=== PATIENT | female | born 1950 | race African-American/Black ===

== ENCOUNTER 2017-07-20 23:29 | Emergency (ER) | payer MEDICARE, MEDICAID ==
--- NOTE | 2017-07-20 23:57 | RAD ---
PORTABLE CHEST: 07/20/17 HISTORY: Cough. COMPARISON: 08/17/15 study. Heart size is enlarged. Atherosclerotic changes are seen in the aorta. The lungs are clear of infiltr ates. Slight elevation of the right hemidiaphragm is noted. Minimal atelectatic changes are seen in t he bases. IMPRESSION: Cardiomegaly with no focal infiltrate. POS: [facility]
== END 2017-07-21 01:50 | disposition home or self-care (01) ==
LOC: ERS 23:29
DX: J11.1 Influenza due to unidentified influenza virus with other respiratory manifestations (principal); E11.40 Type 2 diabetes mellitus with diabetic neuropathy, unspecified; I12.0 Hypertensive chronic kidney disease with stage 5 chronic kidney disease or end stage renal disease; E11.22 Type 2 diabetes mellitus with diabetic chronic kidney disease; N18.6 End stage renal disease; F32.9 Major depressive disorder, single episode, unspecified; Z79.82 Long term (current) use of aspirin; Z79.899 Other long term (current) drug therapy
CPT/HCPCS: 71010; 87081; 87430; 87804

== ENCOUNTER 2017-10-19 13:03 | Outpatient (CLI) | payer MEDICARE, MEDICAID | END 2017-10-19 13:04 | disposition home or self-care (01) | LOC: BICULT 13:03 | PROVIDERS: ATTEND Surgery | DX: Z01.818 Encounter for other preprocedural examination (principal); N18.6 End stage renal disease | CPT/HCPCS: 93970; G0365 ==

== ENCOUNTER 2017-11-02 06:20 | Day surgery (SDC) | payer MEDICARE, MEDICAID ==
[2017-11-01 15:01] VITALS: BMI 35.3
[2017-11-02] MEDS ORDERED: Fentanyl 100 MCG/2 ML VIAL ONE ×3 (06:34→10:38)
[2017-11-02] MEDS ORDERED: Midazolam HCl 2 mg/2 ml Vial ONE ×2 (06:35→08:09)
[2017-11-02] MEDS ORDERED: Heparin 5,000 UNITS/ML VIAL ONE (06:37)
[2017-11-02] MEDS ORDERED: Bupivacaine/Epinephrine 0.25% 30 ML VIAL ONE (06:51)
[2017-11-02] MEDS ORDERED: CEFAZOLIN/Water 2 GM/20 ML SYRINGE ONE (07:27)
[2017-11-02 07:56] LABS: Hemoglobin 11.3 g/dL (12.0-16.0); Mean Corpuscular HGB CONC 31.6 g/dL (32.0-36.0); Mean Corpuscular Hemoglobin 29.3 pg (27.0-31.0); Mean Corpuscular Volume 93.6 fL (81.0-99.0); RBC Distribution Width 13.5 % (11.5-14.5); Red Blood Cell (RBC) Count 3.82 mill/uL (4.20-5.40); White Blood Cell (WBC) Count 9.8 thou/uL (4.8-10.8)
[2017-11-02 07:57] LABS: #Basophils 0.1 thou/uL (0.0-0.2); #Eosinphils 0.3 thou/uL (0.0-0.7); #Lymphocytes 2.6 thou/uL (1.20-3.40); #Monocytes 0.8 thou/uL (0.11-0.59); #Neutrophils 6.1 thou/uL (1.40-6.50); %Basophils 0.7 % (0.0-1.0); %Eosinophils 2.8 % (0.0-10.0); %Lymphocytes 26.1 % (21.0-51.0); %Monocytes 7.8 % (0.0-10.0); %Neutrophils 62.7 % (42.0-75.0); Mean Platelet Volume 9.1 fL (7.4-10.4); Platelet Count 222 thou/uL (130-400)
[2017-11-02 08:09] LABS: Anion Gap 16 mmol/L (10-20); BUN (Urea Nitrogen) 62 mg/dL (9.8-20.1); Calc. Creatinine Clearance 15 mL/min (70-130); Calcium 9.8 mg/dL (7.8-10.44); Carbon Dioxide 23 mmol/L (23-31); Chloride 103 mmol/L (98-107); Estimated GFR-MDRD 10; Glucose 146 mg/dL (80-115); Potassium 4.3 mmol/L (3.5-5.1); Sodium 138 mmol/L (136-145)
[2017-11-02] MEDS ORDERED: Ondansetron HCl/PF 4 MG/2 ML Vial ONE ×2 (09:51→16:43)
[2017-11-02] MEDS ORDERED: Heparin 10,000 UNITS/ 10 ML VIAL ONE (11:53)
[2017-11-02] MEDS ORDERED: Morphine 4 MG/ML VIAL ONE (12:01)
[2017-11-02] MEDS ORDERED: HYDROcodone/Acetaminophen 5/325 mg Tablet ONE (12:01)
[2017-11-02] MEDS ORDERED: PROPOFOL 200 MG/20 ML VIAL ONE (16:43)
[2017-11-02] MEDS ORDERED: Dexamethasone 20 MG/5 ML VIAL ONE (16:43)
[2017-11-02] MEDS ORDERED: Lidocaine 1% PF 5 ML VIAL ONE (16:43)
--- NOTE | 2017-11-03 15:01 | OP ---
PROCEDURE: Left upper arm radiocephalic AV fistula. PREOPERATIVE DIAGNOSIS: Renal failure with thrombosed right arm fistula. POSTOPERATIVE DIAGNOSIS: Renal failure with thrombosed right arm fistula. HISTORY: Ms. Briggs is a 67-year-old woman with end-stage renal failure. Attempts were made to guanaco ce a fistula on the right arm, but the vein thrombosed. Recommendation was made to proceed with left arm fistula. PROCEDURE IN DETAIL: After informed consent was obtained and appropriate preoperative antibiotics ad ministered, the patient was taken to the operating room. She was placed in supine position and monit ored anesthesia care was administered. A preoperative block had been placed and adequacy was confirm ed. She was prepped and draped in a standard sterile fashion and the left arm carefully examined and no adequate forearm vein was identified, but she had a good antecubital vein. An incision was made between this and the palpable brachial pulse and dissection carried down to the vein, which was found to have a good caliber customer loyalty representative. This was dissected free and the distal branches ligated and divi ded and the end spatulated. The vessel was interrogated with cardiac dilators and easily accepted up to a 4-mm dilator. This went up the cephalic outflow only. No significant crossover the basilic sy stem was noted. The vein was flushed with heparinized saline and clamped with a bulldog clamp and th e radial artery identified in the base of the wound. The end of the customer loyalty representative easily reached down t o the radial artery, which was somewhat small in caliber, but soft walled and healthy. The artery wa s dissected free for a length adequate to perform a wide anastomosis and heparin was administered and allowed to circulate for 3 minutes. The radial artery was then clamped proximally and distally and an anterior arteriotomy created with 11-blade and extended with Alejo scissors. A wide end-to-side a nastomosis was created with a running 6-0 Prolene suture with excellent technical result. Prior to c ompletion of the anastomosis, the arterial inflow was released, flushing the anastomosis and flow was established first through the fistula and then through the distal artery. Hemostasis was verified a t the anastomosis and the wound irrigated and hemostasis within the wound obtained by Bovie electroca utery. The fistula had an excellent thrill in it and a good Doppler signal up to the mid upper arm. Surgicel was placed in the base of the wound. The wound was closed with a 3-0 subcutaneous and a 4- 0 subcuticular suture. Dermabond dressings were placed and the arm was dressed with an Timbo wrap. Es timated blood loss was minimal. There were no complications. There were no specimens.
== END 2017-11-02 13:15 | disposition home or self-care (01) ==
LOC: SDC 06:20
PROVIDERS: ATTEND Surgery
PROC: 031C0ZF Bypass Left Radial Artery to Lower Arm Vein, Open Approach (ICD-10-PCS; principal; 2017-11-02)
DX: I12.0 Hypertensive chronic kidney disease with stage 5 chronic kidney disease or end stage renal disease (principal); E11.22 Type 2 diabetes mellitus with diabetic chronic kidney disease; N18.6 End stage renal disease; G43.909 Migraine, unspecified, not intractable, without status migrainosus; Z79.82 Long term (current) use of aspirin; Z79.899 Other long term (current) drug therapy; Z98.890 Other specified postprocedural states; Z86.73 Personal history of transient ischemic attack (TIA), and cerebral infarction without residual deficits; Z82.49 Family history of ischemic heart disease and other diseases of the circulatory system; Z82.3 Family history of stroke
CPT/HCPCS: 80048; 85025; 96374; J1100; J1644; J2001; J2250; J2270; J2405; J2704; J3010

== ENCOUNTER 2017-12-19 13:04 | Day surgery (SDC) | payer MEDICARE, MEDICAID ==
[2017-12-15 11:49] VITALS: BMI 33.5
[~2017-12-19 13:04] MED LIST: Bupivacaine HCl 0.5%/Epinephrine 1:200,000/PF 30 ml Vial ONE
[2017-12-19] MEDS ORDERED: PROPOFOL 200 MG/20 ML VIAL ONE (13:30)
[2017-12-19] MEDS ORDERED: Midazolam HCl 2 mg/2 ml Vial ONE (14:00)
[2017-12-19] MEDS ORDERED: Fentanyl 100 MCG/2 ML VIAL ONE ×2 (14:00→14:14)
[2017-12-19 14:07] LABS: #Eosinphils 0.3 thou/uL (0.0-0.7); #Lymphocytes 3.2 thou/uL (1.20-3.40); #Monocytes 0.8 thou/uL (0.11-0.59); %Basophils 0.4 % (0.0-1.0); %Eosinophils 2.7 % (0.0-10.0); %Lymphocytes 34.7 % (21.0-51.0); %Monocytes 8.3 % (0.0-10.0); %Neutrophils 53.9 % (42.0-75.0); Hemoglobin 11.8 g/dL (12.0-16.0); Mean Corpuscular HGB CONC 33.2 g/dL (32.0-36.0); Mean Corpuscular Hemoglobin 30.8 pg (27.0-31.0); Mean Corpuscular Volume 92.6 fl (81.0-99.0); Mean Platelet Volume 8.3 fL (7.4-10.4); Platelet Count 222 thou/uL (130-400); RBC Distribution Width 14.2 % (11.5-14.5); Red Blood Cell (RBC) Count 3.82 mill/uL (4.20-5.40); White Blood Cell (WBC) Count 9.3 thou/uL (4.8-10.8)
[2017-12-19] MEDS ORDERED: Protamine Sulfate 50 MG/5 ML VIAL ONE (14:16)
[2017-12-19] MEDS ORDERED: Heparin 5,000 UNITS/ML VIAL ONE (14:16)
[2017-12-19] MEDS ORDERED: Bupivacaine/Epinephrine 0.25% 30 ML VIAL ONE (14:16)
[2017-12-19] MEDS ORDERED: Heparin 10,000 UNITS/ 10 ML VIAL ONE (17:22)
--- NOTE | 2017-12-19 23:54 | EKG ---
Test Reason : PREOP Blood Pressure : / mmHG Vent. Rate : 069 BPM Atrial Rate : 069 BPM P-R Int : 190 ms QRS Dur : 088 ms QT Int : 370 ms P-R-T Axes : 050 -06 014 degrees QTc Int : 396 ms Normal sinus rhythm Normal ECG When compared with ECG of 30-MAY-2017 06:38, No significant change was found Confirmed by Madyson LUACS ([id number]) on 12/19/2017 11:54:25 PM Referred By: ANITRA Confirmed By:Madyson LUCAS
--- NOTE | 2017-12-20 11:09 | OP ---
PROCEDURE: Left cephalic upper arm vein transposition fistula on 12/19/2017. PREOPERATIVE DIAGNOSIS: End-stage renal failure. POSTOPERATIVE DIAGNOSIS: End-stage renal failure. HISTORY: Ms. Briggs is a 67-year-old woman with a left cephalic upper arm fistula. Unfortunately, due to her body habitus, this vein is too deep to be accessed by the dialysis nurses, so transition t o a more superficial location was recommended. PROCEDURE: After informed consent was obtained and appropriate preoperative antibiotics administered , the patient was taken to the operating room. She was placed in supine position and anesthesia was administered. She had previously undergone an infraclavicular block and the adequacy of the block wa s confirmed. She was prepped and draped in a standard sterile fashion and an incision made over the left upper arm cephalic vein. This was dissected free along its length to the level of the shoulder with ligation of side branches as they were encountered and the vein was of good caliber and quality throughout and had an excellent thrill. A subcutaneous tunnel was created medial to the incision and the vein was secured within this tunnel using 3-0 Monocryl sutures through the subcutaneous tissues to hold it in place. The wound bed was then examined and hemostasis obtained using Bovie electrocaut sneha and clip placement as necessary. Once pristine hemostasis was obtained, additional Surgicel stri ps were placed into the wound for reinforcement and minimizing of postoperative bleeding. The subcut aneous tissues were then reapproximated with 3-0 Monocryl sutures and the skin was closed with skin s taples. A Prevena surface wound VAC was placed and the patient was taken to recovery room in good co ndition. Estimated blood loss was minimal. There were no complications. There were no specimens.
== END 2017-12-19 17:48 | disposition home or self-care (01) ==
LOC: SDC 13:04
PROVIDERS: ATTEND Surgery
PROC: 05SF0ZZ Reposition Left Cephalic Vein, Open Approach (ICD-10-PCS; principal; 2017-12-19)
DX: I12.0 Hypertensive chronic kidney disease with stage 5 chronic kidney disease or end stage renal disease (principal); E11.22 Type 2 diabetes mellitus with diabetic chronic kidney disease; N18.6 End stage renal disease; G43.909 Migraine, unspecified, not intractable, without status migrainosus; Z79.899 Other long term (current) drug therapy; Z99.2 Dependence on renal dialysis; Z98.890 Other specified postprocedural states; Z86.73 Personal history of transient ischemic attack (TIA), and cerebral infarction without residual deficits; Z79.82 Long term (current) use of aspirin
CPT/HCPCS: 36416; 85025; 93005; 93010; J0670; J1644; J2250; J2704; J2720; J3010

== ENCOUNTER 2017-12-21 22:28 | Emergency (ER) | payer MEDICARE, MEDICAID ==
[2017-12-21] MEDS ORDERED: hydrOXYzine 25 MG TAB ONE (23:05)
== END 2017-12-21 23:33 | disposition home or self-care (01) ==
LOC: ERS 22:28
DX: T78.40XA Allergy, unspecified, initial encounter (principal); E11.22 Type 2 diabetes mellitus with diabetic chronic kidney disease; I12.0 Hypertensive chronic kidney disease with stage 5 chronic kidney disease or end stage renal disease; N18.6 End stage renal disease; E11.40 Type 2 diabetes mellitus with diabetic neuropathy, unspecified; F32.9 Major depressive disorder, single episode, unspecified
CPT/HCPCS: 99283

== ENCOUNTER 2018-04-02 12:44 | Outpatient (CLI) | payer MEDICARE, MEDICAID ==
--- NOTE | 2018-04-02 14:28 | RAD ---
CHEST TWO VIEWS: History: Dyspnea. Comparison: 12-01-14 FINDINGS: Cardiac silhouette and pulmonary vasculature are unremarkable. Mediastinum is midline with aortic zenaida cification. No lobar consolidation, pneumothorax or pleural fluid. IMPRESSION: 1. Atherosclerosis. 2. No active cardiopulmonary abnormalities are otherwise demonstrated. POS: [facility]
== END 2018-04-02 12:45 | disposition home or self-care (01) ==
LOC: RAD 12:44
PROVIDERS: ATTEND Internal Medicine Critical Care Medicine
DX: R06.00 Dyspnea, unspecified (principal); I70.90 Unspecified atherosclerosis
CPT/HCPCS: 71046

== ENCOUNTER 2018-05-29 09:08 | Outpatient (CLI) | payer MEDICARE, MEDICAID | END 2018-05-29 09:09 | disposition home or self-care (01) | LOC: CP 09:08 | PROVIDERS: ATTEND Internal Medicine Critical Care Medicine | DX: J45.909 Unspecified asthma, uncomplicated (principal) | CPT/HCPCS: 94060; 94727 ==

== ENCOUNTER 2018-07-29 19:54 | Emergency (ER) | payer MEDICARE, MEDICAID ==
[2018-07-29 20:27] LABS: #Basophils 0.1 thou/uL (0.0-0.2); #Eosinphils 0.6 thou/uL (0.0-0.7); #Lymphocytes 2.4 thou/uL (1.20-3.40); #Monocytes 0.8 thou/uL (0.11-0.59); #Neutrophils 4.1 thou/uL (1.40-6.50); %Basophils 1.1 % (0.0-1.0); %Eosinophils 7.4 % (0.0-10.0); %Lymphocytes 30.1 % (21.0-51.0); %Monocytes 9.5 % (0.0-10.0); %Neutrophils 51.9 % (42.0-75.0); Hemoglobin 9.7 g/dL (12.0-16.0); Mean Corpuscular HGB CONC 33.2 g/dL (32.0-36.0); Mean Corpuscular Hemoglobin 32.7 pg (27.0-31.0); Mean Corpuscular Volume 98.3 fL (78.0-98.0); Mean Platelet Volume 8.7 fL (7.4-10.4); Platelet Count 214 thou/uL (130-400); RBC Distribution Width 12.3 % (11.5-14.5); Red Blood Cell (RBC) Count 2.96 mill/uL (4.20-5.40); White Blood Cell (WBC) Count 7.9 thou/uL (4.8-10.8)
[2018-07-29 20:48] LABS: ALT (SGPT) 25 U/L (8-55); AST (SGOT) 20 U/L (5-34); Albumin 3.7 g/dL (3.4-4.8); Alkaline Phosphatase 110 U/L (40-150); Anion Gap 16 mmol/L (10-20); BUN (Urea Nitrogen) 64 mg/dL (9.8-20.1); Bilirubin, Total 0.2 mg/dL (0.2-1.2); Calc. Creatinine Clearance 0 mL/min (70-130); Calcium 8.9 mg/dL (7.8-10.44); Carbon Dioxide 22 mmol/L (23-31); Chloride 106 mmol/L (98-107); Estimated GFR-MDRD 9; Globulin 2.9 g/dL (2.4-3.5); Glucose 173 mg/dL (80-115); Potassium 4.1 mmol/L (3.5-5.1); Protein, Total 6.6 g/dL (6.0-8.3); Sodium 140 mmol/L (136-145)
--- NOTE | 2018-07-29 20:48 | RAD ---
TWO VIEW CHEST: INDICATIONS: Neck and shoulder pain. COMPARISON: 04/02/2018 FINDINGS: There is no lobar consolidation, effusion, or discrete pneumothorax. There is vascular calcification . The cardiac silhouette is prominent. Slight vascular congestion also noted. IMPRESSION: 1. No lobar consolidation. 2. Mild prominence of the cardiac silhouette and pulmonary vasculature. This may relate to mild con gestive heart failure. Correlate clinically. POS: [facility]
== END 2018-07-29 22:05 | disposition home or self-care (01) ==
LOC: ERS 19:54
DX: S16.1XXA Strain of muscle, fascia and tendon at neck level, initial encounter (principal); J06.9 Acute upper respiratory infection, unspecified; E11.22 Type 2 diabetes mellitus with diabetic chronic kidney disease; E11.40 Type 2 diabetes mellitus with diabetic neuropathy, unspecified; I10 Essential (primary) hypertension; F32.9 Major depressive disorder, single episode, unspecified; X58.XXXA Exposure to other specified factors, initial encounter
CPT/HCPCS: 36415; 71046; 80053; 85025

== ENCOUNTER 2018-09-03 15:21 | Observation (INO) | payer MEDICARE, MEDICAID ==
[~2018-09-03 15:21] MED LIST changes: -Bupivacaine HCl 0.5%/Epinephrine 1:200,000/PF 30 ml Vial ONE; +ISOVUE-370 76%-LOCM 1 ML ONE
[2018-09-03 16:25] LABS: #Basophils 0.1 thou/uL (0.0-0.2); #Eosinphils 0.4 thou/uL (0.0-0.7); #Lymphocytes 2.5 thou/uL (1.20-3.40); #Monocytes 0.8 thou/uL (0.11-0.59); %Basophils 0.7 % (0.0-1.0); %Lymphocytes 28.2 % (21.0-51.0); %Monocytes 8.6 % (0.0-10.0); %Neutrophils 57.5 % (42.0-75.0); Hemoglobin 10.6 g/dL (12.0-16.0); Mean Corpuscular HGB CONC 32.4 g/dL (32.0-36.0); Mean Corpuscular Volume 98.8 fL (78.0-98.0); Mean Platelet Volume 8.5 fL (7.4-10.4); Platelet Count 238 thou/uL (130-400); RBC Distribution Width 12.4 % (11.5-14.5); Red Blood Cell (RBC) Count 3.31 mill/uL (4.20-5.40); White Blood Cell (WBC) Count 8.7 thou/uL (4.8-10.8)
--- NOTE | 2018-09-03 16:37 | RAD ---
AP VIEW CHEST: 09/03/2018 HISTORY: Chills. A 67-year-old who missed dialysis. COMPARISON: 07/21/2017 TECHNIQUE: AP view chest is performed. FINDINGS: AP view chest demonstrates mild elevation of the right hemidiaphragm. Mild pulmonary vascular conges tion is seen. No evidence of effusions, pneumonia, or pneumothorax is seen. IMPRESSION: Mildly elevated right hemidiaphragm and pulmonary vascular congestion. No acute intrathoracic abnorm ality seen. POS: [facility]
[2018-09-03 16:49] LABS: ALT (SGPT) 16 U/L (8-55); AST (SGOT) 15 U/L (5-34); Albumin 3.9 g/dL (3.4-4.8); Alkaline Phosphatase 104 U/L (40-150); Anion Gap 20 mmol/L (10-20); BUN (Urea Nitrogen) 107 mg/dL (9.8-20.1); Bilirubin, Total 0.2 mg/dL (0.2-1.2); CK (CPK) 71 U/L (29-168); Calc. Creatinine Clearance 0 mL/min (70-130); Calcium 9.3 mg/dL (7.8-10.44); Carbon Dioxide 18 mmol/L (23-31); Chloride 104 mmol/L (98-107); Estimated GFR-MDRD 5; Globulin 2.5 g/dL (2.4-3.5); Glucose 156 mg/dL (80-115); Potassium 4.6 mmol/L (3.5-5.1); Protein, Total 6.4 g/dL (6.0-8.3); Sodium 137 mmol/L (136-145)
--- NOTE | 2018-09-03 21:34 | CT ---
CT ANGIO CHEST WITH INTRAVENOUS CONTRAST WITH 3D RECONSTRUCTIONS: HISTORY: Cough. FINDINGS: The lungs are clear of any infiltrative process. Minimal atelectatic changes are seen in the lung ba ses. No pulmonary nodules. The thoracic aorta is normal in caliber. There is moderate artifact, which degrades detail, and less than optimal pulmonary artery opacificati on. These changes do not allow for evaluation for peripheral emboli, but no central embolus is seen. The visualized liver parenchyma shows no focal findings. The right and left adrenal glands are elizabeth l in appearance. IMPRESSION: No CT evidence for pulmonary embolus, as discussed above. POS: [facility]
[2018-09-03 21:41] LABS: Bilirubin Negative (Negative); Blood, Urine Negative (Negative); Clarity CLOUDY (Clear); Glucose, Urine (Dipstick) Negative (Negative); Leukocyte Negative (Negative); Nitrite Negative (Negative); Protein, Urine (Dipstick) Negative (Neg-Trace); Specific Gravity, Urine 1.013 (1.002-1.036); Urobilinogen 0.2 mg/dL (0.2-1.0)
[2018-09-04 01:02] LABS: HBSAg Index 0.18 S/CO (0-0.99); Hep B Surf Ag Non-Reactive S/CO (NonReactive)
[2018-09-04] MEDS ORDERED: Acetaminophen 325 MG/10.15 ML UDCUP ONE (05:12)
[2018-09-04] MEDS ORDERED: Acetaminophen 325 MG TAB ONE (05:13)
[2018-09-04] MEDS ORDERED: cloNIDine 0.3 MG TAB PO SCH (12:15)
[2018-09-04] MEDS ORDERED: cloNIDine 0.1 MG TAB ONE (12:24)
--- NOTE | 2018-09-04 21:30 | CON ---
DATE OF CONSULTATION: PRIMARY CARE PHYSICIAN: CHIEF COMPLAINT: Feeling shaky and cough and congestion. HISTORY OF PRESENT ILLNESS: Ms. Briggs is a pleasant, middle-age female who presented to the emergency room complaining of feeling shaky and having some cough and congestion. She said that the shaking actually started a couple of days prior to admission. She says it was more like her arms were shaking and her whole body was shaking and she could not stop. She said she had an episode like this a few weeks prior. It was attributed to muscle spasms. She was given a muscle relaxer prescription and discharged home. She said the episode happened again and this was on Monday and so as a result, she stayed home from dialysis. The shakiness actually resolved and she was having some problems with cough and congestion and came to the emergency room for evaluation. On further questioning, it appears that the cough and congestion actually had gotten better. She was given antibiotics as well as it sounds like a steroid Dosepak and had improved, but then she says her symptoms seemed to come back a little bit on the day of admission. In the ER, chest x-ray as well as a CT scan was obtained. It did show that she was mildly volume overloaded, but there was no evidence of lalito pulmonary edema or pneumonia nor of a pulmonary embolism. She was dialyzed while in the ER and since has improved and in fact is back to her baseline, by the time I see here, she feels back to her usual self. REVIEW OF SYSTEMS: All systems were reviewed and are negative except for that mentioned in the history of present illness. PAST MEDICAL HISTORY: Significant for hypertension, end-stage renal disease, on hemodialysis, and diabetes mellitus type 2. PAST SURGICAL HISTORY: She has had two AV fistulas placed. ALLERGIES: NO KNOWN DRUG ALLERGIES. SOCIAL HISTORY: She is a nonsmoker and nondrinker. Denies any drug use. FAMILY HISTORY: Significant for hypertension. CURRENT MEDICATIONS: Include 1. Clonidine 0.3 mg three times a day. 2. Lyrica, unknown dose. 3. Amlodipine 5 mg daily. 4. Aspirin 81 mg daily. 5. Fluoxetine 20 mg daily. 6. Advair Diskus 250/50 inhaled daily. 7. Benicar 40 mg daily. PHYSICAL EXAMINATION: GENERAL: She is alert and oriented. She appears to be in no acute distress. VITAL SIGNS: Blood pressure was 164/68, heart rate 99, respiratory rate of 20, and she is afebrile. HEENT: Her pupils are equal, round, and reactive to light. Extraocular muscles are intact. Her sclerae are anicteric. Throat, there is no erythema, no exudates. NECK: No adenopathy. No bruits. LUNGS: Clear to auscultation. She had a mild expiratory wheeze, but this was very faint and scattered. CARDIOVASCULAR: She had a normal S1, S2. I did not appreciate an S3 or S4. No murmurs, clicks, or rubs. ABDOMEN: Obese, it is soft. It is nontender and nondistended. Positive for bowel sounds. No rebound or guarding. EXTREMITIES: She has trace pedal edema. NEUROLOGIC: Nonfocal. LABORATORY DATA: Her lab results were reviewed. White blood cell count was 8.7, hemoglobin 10.6, hematocrit was 32.7, and platelet count was 233. Sodium 137, potassium 4.6, chloride was 104, CO2 was 18, BUN of 107, creatinine of 8.73, glucose was 156. Urinalysis was negative. She had a chest x-ray showing some mild volume overload. ASSESSMENT: This is a pleasant 67-year-old female, who presented to the emergency room with some general complaints, but likely related to uremia as her BUN is extremely elevated and possible mild volume overload. This appeared to resolve after dialysis. At the time when I see her, she is sitting up eating and has no complaints. Her blood pressure was slightly elevated, however, but she had not had her usual home medications. Therefore, I think it is safe to discharge the patient home after she has had a dose of her scheduled clonidine and Lyrica as per her request. Blood cultures were drawn to make sure that this "shakiness" did not represent some type of bacteremia. These can be followed up with Dr. Sanches in the clinic. Otherwise, she is stable for discharge home. Job ID: [id number]
--- NOTE | 2018-09-15 12:40 | EKG ---
Test Reason : Blood Pressure : / mmHG Vent. Rate : 093 BPM Atrial Rate : 093 BPM P-R Int : 176 ms QRS Dur : 088 ms QT Int : 350 ms P-R-T Axes : 045 -15 020 degrees QTc Int : 435 ms Normal sinus rhythm Normal ECG Confirmed by SHASHI BLOOM, EAN ([id number]), brands editor ROBB HARMON ([id number]) on 09/15/2018 12:39:53 PM Referred By: Confirmed By:EAN DANIELLE MD
== END 2018-09-04 13:06 | disposition home or self-care (01) ==
LOC: ERS 15:21 → ERHOLD 22:13
PROVIDERS: ADMIT Family Medicine; ATTEND Family Medicine
DX: M62.838 Other muscle spasm (principal); R05 Cough; E87.70 Fluid overload, unspecified; I12.0 Hypertensive chronic kidney disease with stage 5 chronic kidney disease or end stage renal disease; E11.22 Type 2 diabetes mellitus with diabetic chronic kidney disease; N18.6 End stage renal disease; Z99.2 Dependence on renal dialysis; Z79.82 Long term (current) use of aspirin; Z79.899 Other long term (current) drug therapy
CPT/HCPCS: 71045; 71275; 80053; 81003; 82550; 82962; 83690; 83880; 84484; 85025; 87040; 87340; 93005; 99285; G0378; 36415; 36416; 90935; G0257; Q9966

== ENCOUNTER 2019-02-16 13:46 | Emergency (ER) | payer MEDICARE, MEDICAID ==
[2019-02-16 14:18] LABS: #Basophils 0.2 thou/uL (0.0-0.2); #Eosinphils 0.3 thou/uL (0.0-0.7); #Lymphocytes 4.8 thou/uL (1.20-3.40); #Monocytes 0.6 thou/uL (0.11-0.59); #Neutrophils 6.1 thou/uL (1.40-6.50); %Basophils 1.3 % (0.0-1.0); %Eosinophils 2.1 % (0.0-10.0); %Lymphocytes 40.4 % (21.0-51.0); %Monocytes 5.1 % (0.0-10.0); %Neutrophils 51.1 % (42.0-75.0); Hemoglobin 13.5 g/dL (12.0-16.0); Mean Corpuscular HGB CONC 34.5 g/dL (32.0-36.0); Mean Corpuscular Hemoglobin 31.4 pg (27.0-31.0); Mean Platelet Volume 7.3 fL (7.4-10.4); Platelet Count 239 thou/uL (130-400); RBC Distribution Width 13.4 % (11.5-14.5); Red Blood Cell (RBC) Count 4.31 mill/uL (4.20-5.40); White Blood Cell (WBC) Count 11.9 thou/uL (4.8-10.8)
[2019-02-16 14:36] LABS: ALT (SGPT) 25 U/L (8-55); AST (SGOT) 30 U/L (5-34); Albumin 4.3 g/dL (3.4-4.8); Alkaline Phosphatase 108 U/L (40-150); Anion Gap 17 mmol/L (10-20); BUN (Urea Nitrogen) 58 mg/dL (9.8-20.1); Bilirubin, Total 0.5 mg/dL (0.2-1.2); Calc. Creatinine Clearance 0 mL/min (70-130); Carbon Dioxide 20 mmol/L (23-31); Chloride 105 mmol/L (98-107); Estimated GFR-MDRD 8; Globulin 3.3 g/dL (2.4-3.5); Glucose 161 mg/dL (80-115); Potassium 3.3 mmol/L (3.5-5.1); Protein, Total 7.6 g/dL (6.0-8.3); Sodium 139 mmol/L (136-145)
[2019-02-16] MEDS ORDERED: Ondansetron PF 4 MG/2 ML Vial ONE (14:53)
[2019-02-16 15:16] LABS: Bilirubin Negative (Negative); Blood, Urine 1+ (Negative); Clarity Clear (Clear); Glucose, Urine (Dipstick) Normal (Negative); Leukocyte Negative Leu/uL (Negative); Nitrite Negative (Negative); Protein, Urine (Dipstick) 100 mg/dL (Neg-Trace); Urobilinogen Normal mg/dL (Less than 2); WBC/HPF 0-3 HPF (0-3)
[2019-02-16 15:25] LABS: Bacteria/HPF 1+ HPF (None Seen)
== END 2019-02-16 16:06 | disposition home or self-care (01) ==
LOC: ERS 13:46
DX: R10.10 Upper abdominal pain, unspecified (principal); R11.2 Nausea with vomiting, unspecified; R19.7 Diarrhea, unspecified; E11.22 Type 2 diabetes mellitus with diabetic chronic kidney disease; I12.0 Hypertensive chronic kidney disease with stage 5 chronic kidney disease or end stage renal disease; N18.6 End stage renal disease; E11.40 Type 2 diabetes mellitus with diabetic neuropathy, unspecified; Z79.82 Long term (current) use of aspirin; Z79.899 Other long term (current) drug therapy
CPT/HCPCS: 36415; 80053; 81003; 81015; 83690; 85025; 93005; 96361; 96374; J2405

== ENCOUNTER 2019-05-09 09:54 | Outpatient (CLI) | payer MEDICARE, MEDICAID ==
--- NOTE | 2019-05-09 10:17 | RAD ---
EXAM: Chest 2 views: HISTORY: Dyspnea COMPARISON: 09/03/2018 FINDINGS: There is a normal-sized cardiomediastinal silhouette. Atherosclerotic calcifications are seen in the aorta. There is no evidence of consolidation, mass, or pleural effusion. Degenerative changes are seen in the spine. IMPRESSION: No evidence of acute cardiopulmonary disease
== END 2019-05-09 09:55 | disposition home or self-care (01) ==
LOC: RAD 09:54
PROVIDERS: ATTEND Internal Medicine Critical Care Medicine
DX: R06.00 Dyspnea, unspecified (principal)
CPT/HCPCS: 71046

== ENCOUNTER 2020-01-05 11:44 | Emergency (ER) | payer MEDICARE, MEDICAID ==
--- NOTE | 2020-01-05 12:05 | RAD ---
Exam:Right humerus 2 views HISTORY: Patient fell antifreeze. Pain. COMPARISON: None FINDINGS: No fracture, cortical irregularity or periosteal reaction. IMPRESSION: No fracture.
--- NOTE | 2020-01-05 12:09 | RAD ---
Exam:Right shoulder 3 views HISTORY: Trauma. Fall. Pain. COMPARISON: None FINDINGS: Degenerative changes in the acromioclavicular joint space. There is a prominent subacromial spur. No fracture or dislocation. Visualized right lung parenchyma and ribs do not demonstrate posttraumatic change. IMPRESSION: No fracture or dislocation.
--- NOTE | 2020-01-05 12:59 | RAD ---
Exam:2 views right forearm HISTORY: Pain. Fall. COMPARISON: None FINDINGS: No fracture, cortical irregularity or periosteal reaction. IMPRESSION: No fracture.
[2020-01-05] MEDS ORDERED: Orphenadrine Citrate 60 MG/2 ML VIAL IM SCH (13:00)
[2020-01-05] MEDS ORDERED: Acetaminophen/Codeine 30-300mg Tablet ONE (13:07)
== END 2020-01-05 13:36 | disposition home or self-care (01) ==
LOC: ERS 11:44
DX: S50.11XA Contusion of right forearm, initial encounter (principal); M19.011 Primary osteoarthritis, right shoulder; I12.0 Hypertensive chronic kidney disease with stage 5 chronic kidney disease or end stage renal disease; N18.6 End stage renal disease; E11.22 Type 2 diabetes mellitus with diabetic chronic kidney disease; E11.40 Type 2 diabetes mellitus with diabetic neuropathy, unspecified; F32.9 Major depressive disorder, single episode, unspecified; W01.0XXA Fall on same level from slipping, tripping and stumbling without subsequent striking against object, initial encounter
CPT/HCPCS: 96372; J2360

== ENCOUNTER 2020-01-08 11:17 | Inpatient (IN) | payer MEDICARE, MEDICAID, OTHER ==
[2020-01-08 11:55] LABS: #Eosinphils 0.2 thou/uL (0.0-0.7); #Lymphocytes 1.5 thou/uL (1.20-3.40); #Monocytes 0.9 thou/uL (0.11-0.59); #Neutrophils 12.3 thou/uL (1.40-6.50); %Basophils 0.1 % (0.0-1.0); %Eosinophils 1.2 % (0.0-10.0); %Lymphocytes 9.8 % (21.0-51.0); %Monocytes 6.3 % (0.0-10.0); %Neutrophils 82.6 % (42.0-75.0); Hemoglobin 12.7 g/dL (12.0-16.0); Mean Corpuscular HGB CONC 32.4 g/dL (32.0-36.0); Mean Corpuscular Volume 98.6 fL (78.0-98.0); Mean Platelet Volume 9.9 fL (7.4-10.4); Platelet Count 195 thou/uL (130-400); Red Blood Cell (RBC) Count 3.98 mill/uL (4.20-5.40); White Blood Cell (WBC) Count 14.9 thou/uL (4.8-10.8)
[2020-01-08 11:58] LABS: Bacteria/HPF None Seen HPF (None Seen); Bilirubin Negative (Negative); Blood, Urine Trace (Negative); Clarity Clear (Clear); Glucose, Urine (Dipstick) Normal (Negative); Leukocyte Negative Leu/uL (Negative); Nitrite Negative (Negative); Protein, Urine (Dipstick) 10 mg/dL (Neg-Trace); RBC/HPF None Seen HPF (0-3); Squamous Epithelial None Seen HPF (0-3); Urobilinogen Normal mg/dL (Less than 2); WBC/HPF 0-3 HPF (0-3)
--- NOTE | 2020-01-08 12:02 | RAD ---
EXAM: Single view of the chest HISTORY: Altered mental status COMPARISON: 09/03/2018 FINDINGS: Single view of the chest shows an enlarged but stable cardiomediastinal silhouette. Athero sclerotic calcifications are seen in the aorta. There is no evidence of consolidation, mass, or pleural effusion. The bones are unremarkable. IMPRESSION: No evidence of acute cardiopulmonary disease
--- NOTE | 2020-01-08 12:13 | CT ---
EXAM: CT brain without contrast HISTORY: Left-sided weakness COMPARISON: 07/29/2015 TECHNIQUE: Multiple contiguous axial images were obtained and a CT of the brain without contrast. FINDINGS: The brain is normal in morphology and attenuation without focal lesions or confluent areas of infarction. There is no evidence of hydrocephalus, intracranial hemorrhage, or extra-axial fluid collection. The calvarium and overlying soft tissues are unremarkable. The visualized paranasal sinuses and masto id air cells are well aerated. IMPRESSION: No evidence of acute intracranial abnormality Dr. Benton notified of the findings at 12:10 PM on 01/08/2020
[2020-01-08 12:22] LABS: ALT (SGPT) 20 U/L (8-55); AST (SGOT) 43 U/L (5-34); Albumin 4.2 g/dL (3.4-4.8); Alkaline Phosphatase 94 U/L (40-110); Anion Gap 24 mmol/L (10-20); BUN (Urea Nitrogen) 64 mg/dL (9.8-20.1); Bilirubin, Total 0.3 mg/dL (0.2-1.2); Calc. Creatinine Clearance 0 mL/min (70-130); Calcium 9.3 mg/dL (7.8-10.44); Carbon Dioxide 18 mmol/L (23-31); Chloride 102 mmol/L (98-107); Estimated GFR-MDRD 6; Globulin 3.1 g/dL (2.4-3.5); Glucose 146 mg/dL (80-115); Potassium 4.6 mmol/L (3.5-5.1); Protein, Total 7.3 g/dL (6.0-8.3); Sodium 139 mmol/L (136-145)
[2020-01-08 13:58] LABS: CKMB 8.1 ng/mL (0-6.6)
[2020-01-08] MEDS ORDERED: Nitroglycerin 0.4 MG TAB 1 EACH ONE (16:03)
[2020-01-08] MEDS ORDERED: Aspirin Chewable 81 MG TAB ONE (16:03)
[2020-01-08] MEDS ORDERED: Nitroglycerin 2% Ointment 1 INCH/1 GM Packet ONE (16:03)
--- NOTE | 2020-01-08 17:26 | PDOC.FPRHP ---
- History of Present Illness Chief Complaint: AMS History of Present Illness: This is a 69yo AA F presenting with a PMH significant for ESRD on HD and HTN who presents with AMS. The patient was last seen normal by a family member on Monday night and when she was woken up this morning she was altered. Prior to this event, the patient is able to care for herself and is functional. She usually gets dialysis on and missed dialysis on Monday. When she was found she would not respond to any questions and would not open her eyes. EMS was called by the family member. Patient sees Dr. Sanches. Per the daughter the patient had a heart cath a few years ago that showed CAD. She also has DM, but is unsure what medications she is on. Per EMS - BPs were >200 systolic. Patient' s daughter does state that the patient had a fall on Monday where she tripped and injured her shoulder. She came to the ER the next day and was sent home with pain medication. She was not complaining of any other issues over the weekend such as NVD, chest pain, SOB, dizziness, sore throat. History obtained from the ER record and from daughter. The patient was unable to provide further history due to mental status. ED Course: Nitro-bid 1inch transdermal Patient uncooperative with taking medications in ER. - Allergies/Adverse Reactions Allergies Allergy/AdvReac Type Severity Reaction Status Date / Time No Known Allergies Allergy Verified 10/14/19 22:24 - Home Medications Medication Instructions Recorded Confirmed Type FLUoxetine HCl 60 mg PO QAM 11/26/14 12/15/17 History Fluticasone/Salmeterol [Advair 2 puff INH BID 11/26/14 12/15/17 History Diskus 250/50] Ipratropium [place] [Ipratropium 1 inh INH TID 11/26/14 12/15/17 History [place] 0.03% Nasal [place]] cloNIDine HCl 0.3 mg PO TID 11/26/14 12/15/17 History Albuterol Sulfate [Ventolin HFA] 2 puff INH Q4HR PRN 01/05/15 12/15/17 History ALPRAZolam [Alprazolam] 0.25 mg PO ASDIR PRN 05/29/17 12/15/17 History Aspirin [Ecotrin Regular Strength] 81 mg PO QAM 05/29/17 12/15/17 History Pregabalin [Lyrica] 100 mg PO TID 05/29/17 12/15/17 History buPROPion HCl [buPROPion HCl XL] 300 mg PO QAM 05/29/17 12/15/17 History Amlodipine Besylate [amLODIPine 5 mg PO QAM 12/15/17 12/15/17 History Besylate] Pantoprazole Sodium 40 mg PO QAM 12/15/17 12/15/17 History - History PMHx: CAD, DM, ESRD on HD, HTN, depression, neuropathy PSHx: carpal tunnel surgery both hands, fistula both arms, partial hysterectomy FHx: fam hx of heart disease and diabetes Social: denies alcohol, drug or tobacco use. Lives at home alone. - Review of Systems ROS unobtainable: due to mental status - Vital signs BP: 206/124, Pulse: 109, Resp: 14 (Non-Labored), Temp: 97.9 (Criticore Temp), Pain: UTR, O2 sat: 98 on (Room Air), Time: 01/08/2020 17:13 Weight 84kg BP: 125/100, MAP: 108, Pulse: 94, O2 sat: 100 on (Room Air), Time: 01/08/2020 11:23. - Physical Exam Constitutional: NAD HEENT: normocephalic and atraumatic, PERRLA, EOMI, no scleral icterus, MMM Neck: supple, FROM, trachea midline Chest: no-tender to palpation, no lesions Heart: RRR, normal S1/S2, no murmurs/rubs/gallops, pulses present -Heart: trace edema to level of the ankle Lungs: CTAB, no respiratory distress, good air movement Abdomen: soft, non-tender, bowel sounds present, no masses/distention Neurological: no focal deficit -Neurological: difficult to fully asses but localizes to pain, moves all limbs nonpurposefully , does NOT follow commands, opens eyes spontaneously Skin: no rash/lesions, good turgor, capillary refill <2 seconds FMR H&P: Results - Labs Result Diagrams: 01/08/20 11:46 01/08/20 11:46 Lab results: WBC 14.9 thou/uL (4.8-10.8) H 01/08/20 11:46 Hgb 12.7 g/dL (12.0-16.0) 01/08/20 11:46 Hct 39.2 % (36.0-47.0) 01/08/20 11:46 MCV 98.6 fL (78.0-98.0) H 01/08/20 11:46 Plt Count 195 thou/uL (130-400) 01/08/20 11:46 Neutrophils % 82.6 % (42.0-75.0) H 01/08/20 11:46 Sodium 139 mmol/L (136-145) 01/08/20 11:46 Potassium 4.6 mmol/L (3.5-5.1) 01/08/20 11:46 Chloride 102 mmol/L (98-107) 01/08/20 11:46 Carbon Dioxide 18 mmol/L (23-31) L 01/08/20 11:46 BUN 64 mg/dL (9.8-20.1) H 01/08/20 11:46 Creatinine 8.37 mg/dL (0.6-1.1) H 01/08/20 11:46 Glucose 146 mg/dL (80-115) H 01/08/20 11:46 Calcium 9.3 mg/dL (7.8-10.44) 01/08/20 11:46 Total Bilirubin 0.3 mg/dL (0.2-1.2) 01/08/20 11:46 AST 43 U/L (5-34) H 01/08/20 11:46 ALT 20 U/L (8-55) 01/08/20 11:46 Alkaline Phosphatase 94 U/L (40-110) 01/08/20 11:46 CK-MB (CK-2) 8.1 ng/mL (0-6.6) H* 01/08/20 11:46 Serum Total Protein 7.3 g/dL (6.0-8.3) 01/08/20 11:46 Albumin 4.2 g/dL (3.4-4.8) 01/08/20 11:46 Urine Ketones Negative mg/dL (Negative) 01/08/20 11:46 Urine Blood Trace (Negative) A 01/08/20 11:46 Urine Nitrite Negative (Negative) 01/08/20 11:46 Ur Leukocyte Esterase Negative Jahaira/uL (Negative) 01/08/20 11:46 Urine RBC None Seen HPF (0-3) 01/08/20 11:46 Urine WBC 0-3 HPF (0-3) 01/08/20 11:46 Ur Squamous Epith Cells None Seen HPF (0-3) 01/08/20 11:46 Urine Bacteria None Seen HPF (None Seen) 01/08/20 11:46 - Radiology Interpretation CT scan - head Status: report reviewed by me (neg for acute process) Chest x-ray Status: report reviewed by me (normal) FMR H&P: A/P - Problem List (1) ESRD needing dialysis Current Visit: No Status: Acute Code(s): N18.6 - END STAGE RENAL DISEASE (2) Anemia of renal disease Current Visit: No Status: Chronic Code(s): D63.1 - ANEMIA IN CHRONIC KIDNEY DISEASE (3) Asthma Current Visit: No Status: Chronic Code(s): J45.909 - UNSPECIFIED ASTHMA, UNCOMPLICATED Qualifiers: Asthma complication type: uncomplicated (4) Depression Current Visit: No Status: Chronic Code(s): F32.9 - MAJOR DEPRESSIVE DISORDER , SINGLE EPISODE, UNSPECIFIED (5) Diabetes Current Visit: No Status: Chronic Code(s): E11.9 - TYPE 2 DIABETES MELLITUS WITHOUT COMPLICATIONS Qualifiers: Diabetes mellitus type: type 2 Diabetes mellitus complication status: with unspecified complications (6) Hypertension Current Visit: No Status: Chronic Code(s): I10 - ESSENTIAL (PRIMARY) HYPERTENSION (7) Person under investigation for COVID-19 Current Visit: Yes Status: Acute Code(s): Z20.828 - CONTACT W AND EXPOSURE TO OTH VIRAL COMMUNICABLE DISEASES - Plan Encephalopathy likley 2/2 Uremia Other Differentials include possible TIA/CVA vs HTN emergency vs COVID AMS >[address] brain neg. CXR normal. UA neg. GCS of 11 on exam in ER. - Due to missed HD - consulted tack puller machine (Dr. Sanches) as this is potential cause of encephalopathy. Likely needs HD. Appreciate nephro recs. - To rule out CVA, will obtain MRI stat. In the meantime, will allow for permissive HTN with the goal of a 15% reduction in the next 24 hours. Goal BP < 180/120. - COVID test pending - patient does have low lymphocytes, but satting well on RA and afebrile. No travel or recent contacts known. Appropriate precautions until test results. - Alcohol and UDS pending as well to rule out any toxin as possible cause. Patient did have AST 2x greater than ALT. - Continue to monitor VS. Patient is DNR status confirmed with family. Palliative care consulted. - Patient admitted to stroke floor for further work up Elevated troponin - Likely 2/2 renal disease. CKMB also elevated. EKG with LVH, no ST elevations or depressions. Will trend trop. ESRD on dialysis - Missed dialysis on 01/05. BUN/Cr: 64:8. - Nephrology consulted (Dr. De La Fuente) for likely HD, appreciate recs. CAD - ASA daily. FLP in AM. Cath in 2017 per records, no stent placed at that time. DM - A1c pending - SS insulin HTN - see plan above. On clonidine at home, elevated BP potentially from noncompliance vs rebound HTN. Asthma - Continue home meds. Duoneb PRN for now. Depression - Continue home meds when able. Neuropathy - Continue home meds when able. Code: DNR - confirmed with family Diet: NPO, pending swallow study/speech eval PPx: protonix, heparin Dispo: stroke, inpatient. LOS > 48hrs. Case discussed with Dr. Brown
[2020-01-08] MEDS ORDERED: Dextrose 5% in Water 1,000 ML IV PRN (17:27)
[2020-01-08] MEDS ORDERED: Dextrose 50% Abboject 50 ML SYRINGE SLOW IVP PRN (17:27)
[2020-01-08] MEDS ORDERED: Ondansetron ODT 4 MG TAB PO PRN (17:27)
[2020-01-08] MEDS ORDERED: Ondansetron PF 4 MG/2 ML Vial IVP PRN (17:27)
[2020-01-08] MEDS ORDERED: Acetaminophen 650 MG Suppository PR PRN (17:27)
[2020-01-08 18:09] LABS: Troponin I 0.509 ng/mL (< 0.028)
[2020-01-08 21:11] LABS: Hemoglobin A1c 5.5 % (4.0-6.0)
[2020-01-08 21:31] LABS: CKMB 12.6 ng/mL (0-6.6)
[2020-01-08] MEDS: Heparin 5,000 UNITS/ML VIAL SC SCH (22:11)
[2020-01-08] MEDS ORDERED: Aspirin 300 MG Suppository PR SCH (22:15)
[2020-01-08 22:20] LABS: Medtox Reader # READER 4
[2020-01-08 22:21] LABS: Amphetamine Not Detected (NotDetected); Barbiturates Screen Not Detected (NotDetected); Benzodiazepine Screen Not Detected (NotDetected); Cocaine Metabolite Screen Not Detected (NotDetected); Medtox Control Line Valid? VALID (VALID); Methadone Not Detected (NotDetected); Methamphetamine Not Detected (NotDetected); Opiate Screen Detected (NotDetected); Oxycodone Screen Not Detected (NotDetected); Phencyclidine (PCP) Not Detected (NotDetected); THC/Cannabinoid Screen Not Detected (NotDetected); Tricyclic Screen Not Detected (NotDetected)
[2020-01-08 22:41] LABS: HBSAg Index 0.15 S/CO (0-0.99); Hep B Surf Ag Non-Reactive S/CO (NonReactive)
[2020-01-09] MEDS ORDERED: Albuterol 200 PUFF (6.7GM INHALER) INH PRN (00:52)
--- NOTE | 2020-01-09 01:35 | CON ---
DATE OF CONSULTATION: REASON FOR CONSULTATION: End-stage renal disease for maintenance hemodialysis. HISTORY OF PRESENT ILLNESS: This is a very pleasant 69-year-old female, who presented to the hospital for altered mental status. The patient dialysis. The patient denies any nausea, vomiting, or chest pain. The patient can give no further history. PAST MEDICAL HISTORY: Coronary artery disease, diabetes mellitus, hypertension, ESRD, anemia, depression, neuropathy, carpal tunnel surgery, AV fistula, and hysterectomy. SOCIAL HISTORY: No alcohol or drug use. FAMILY HISTORY: Negative for ESRD. ALLERGIES: REVIEWED. REVIEW OF SYSTEMS: Unobtainable. PHYSICAL EXAMINATION: GENERAL: The patient is resting. VITAL SIGNS: Afebrile, pulse 80, breathing , and blood pressure 206/124. HEENT: Head normocephalic and atraumatic. Eyes intact, no ulcers. Nose intact, no ulcers. Ears intact, no ulcers. NECK: Supple. No JVD. CHEST: Symmetrical and clear. CARDIOVASCULAR: Shows S1 and S2, no rub, no murmur. GASTROINTESTINAL: Abdomen is soft, bowel sounds positive. EXTREMITIES: Show no edema or ulcers. SKIN: Shows no rash or petechiae. MUSCULOSKELETAL: Shows no joint swelling or stiffness. GENITOURINARY: Shows no Franco or CVA tenderness. NEUROLOGIC: The patient is confused. LABORATORY DATA: Reviewed. ASSESSMENT/RECOMMENDATIONS: 1. Stage 6 chronic kidney disease. Plan dialysis. 2. Anemia. Plan dialysis. 3. Uremia. Medication based on GFR appropriate. 4. Hypertension. Plan ultrafiltration. Overall prognosis is poor. Job ID: [id number]
[2020-01-09] MEDS ORDERED: cloNIDine 0.3 MG TAB PO SCH ×2 (01:45→09:00)
[2020-01-09] MEDS: Labetalol HCl 100 MG/20 ML VIAL SLOW IVP SCH (02:39)
[2020-01-09] MEDS: Lactated Ringer's 1,000 ML IV SCH (05:09)
[2020-01-09 05:28] LABS: #Basophils 0.1 thou/uL (0.0-0.2); #Eosinphils 0.1 thou/uL (0.0-0.7); #Lymphocytes 2.6 thou/uL (1.20-3.40); #Monocytes 1.1 thou/uL (0.11-0.59); #Neutrophils 10.1 thou/uL (1.40-6.50); %Basophils 0.4 % (0.0-1.0); %Eosinophils 0.6 % (0.0-10.0); %Lymphocytes 18.4 % (21.0-51.0); %Monocytes 7.8 % (0.0-10.0); %Neutrophils 72.7 % (42.0-75.0); Hemoglobin 12.3 g/dL (12.0-16.0); Mean Corpuscular HGB CONC 32.2 g/dL (32.0-36.0); Mean Corpuscular Hemoglobin 30.8 pg (27.0-31.0); Mean Corpuscular Volume 95.6 fL (78.0-98.0); Mean Platelet Volume 9.6 fL (7.4-10.4); Platelet Count 209 thou/uL (130-400); RBC Distribution Width 12.7 % (11.5-14.5); Red Blood Cell (RBC) Count 3.98 mill/uL (4.20-5.40); White Blood Cell (WBC) Count 13.8 thou/uL (4.8-10.8)
[2020-01-09 05:47] LABS: ALT (SGPT) 20 U/L (8-55); AST (SGOT) 49 U/L (5-34); Albumin 3.8 g/dL (3.4-4.8); Alkaline Phosphatase 84 U/L (40-110); Anion Gap 18 mmol/L (10-20); BUN (Urea Nitrogen) 35 mg/dL (9.8-20.1); Bilirubin, Total 0.4 mg/dL (0.2-1.2); Calc. Creatinine Clearance 13 mL/min (70-130); Calcium 9.9 mg/dL (7.8-10.44); Carbon Dioxide 26 mmol/L (23-31); Cardiac Risk 2.2 (Less than 4.5); Chloride 100 mmol/L (98-107); Cholesterol 154 mg/dl (< 200 Desired); Estimated GFR-MDRD 9; Globulin 3.2 g/dL (2.4-3.5); Glucose 81 mg/dL (80-115); HDL Cholesterol 69 mg/dL (>60 Neg Risk); LDL Cholesterol, Calculated 68 mg/dL; Potassium 3.6 mmol/L (3.5-5.1); Sodium 140 mmol/L (136-145); Triglycerides 85 mg/dL (Less than 150)
[2020-01-09 06:13] LABS: CKMB 10.2 ng/mL (0-6.6); Critical Call CKMB RESULT DECREASING
--- NOTE | 2020-01-09 08:23 | PDOC.FM ---
- Subjective Subjective: NAEO. Patient is responding about the same as yesterday. She is able to follow simple commands, but does not cooperate with others. For me and for nursing she makes incomprehensible sounds, but has not said words or any sort of conversation. She has been moving all of her limbs. - Objective MAR Reviewed: Yes Vital Signs & Weight: Vital Signs (12 hours) Temp Pulse Resp BP Pulse Ox 01/09/20 02:58 87 173/78 H 01/09/20 02:45 98.9 F 110 H 20 203/88 H 98 01/08/20 23:48 98.7 F 110 H 20 219/92 H 96 01/08/20 21:27 97.8 F 109 H 20 169/73 H 96 Weight Weight 82.554 kg Result Diagrams: 01/09/20 04:48 01/09/20 04:48 Phys Exam - Physical Examination Constitutional: NAD HEENT: moist MMs Neck: supple Respiratory: no wheezing, no rales, no rhonchi, clear to auscultation bilateral Cardiovascular: RRR, no significant murmur, no rub Gastrointestinal: soft, non-tender, no distention Musculoskeletal: no edema Neurological: moves all 4 limbs unable to fully assess due to mental states Skin: no rash, normal turgor, cap refill <2 seconds Dx/Plan (1) ESRD needing dialysis Code(s): N18.6 - END STAGE RENAL DISEASE Status: Acute (2) Anemia of renal disease Code(s): D63.1 - ANEMIA IN CHRONIC KIDNEY DISEASE Status: Chronic (3) Asthma Code(s): J45.909 - UNSPECIFIED ASTHMA, UNCOMPLICATED Status: Chronic Qualifiers: Asthma complication type: uncomplicated (4) Depression Code(s): F32.9 - MAJOR DEPRESSIVE DISORDER, SINGLE EPISODE, UNSPECIFIED Status : Chronic (5) Diabetes Code(s): E11.9 - TYPE 2 DIABETES MELLITUS WITHOUT COMPLICATIONS Status: Chronic Qualifiers: Diabetes mellitus type: type 2 Diabetes mellitus complication status: with unspecified complications (6) Hypertension Code(s): I10 - ESSENTIAL (PRIMARY) HYPERTENSION Status: Chronic (7) Person under investigation for COVID-19 Code(s): Z20.828 - CONTACT W AND EXPOSURE TO OTH VIRAL COMMUNICABLE DISEASES Status: Acute - Plan Plan: Encephalopathy likley 2/2 Uremia Other Differentials include possible TIA/CVA vs HTN emergency vs COVID AMS >[address] brain neg. CXR normal. UA neg. GCS of 11 on exam in ER. - Due to missed HD - consulted yard stocker (Dr. Sanches) as this is potential cause of encephalopathy. Appreciate nephro recs. HD yesterday evening, had to be stopped short as patient became tachy and HTN. - To rule out CVA, will obtain MRI. In the meantime, will allow for permissive HTN with the goal of a 15% reduction in the next 24 hours. Goal BP <180/120. MRI pending. - COVID test NEGATIVE. DC precautions. - UDS positive for opiates - patient not on any at home. Will discuss with daughter. - Continue to monitor VS. Patient is DNR status confirmed with family. Palliative care consulted. Elevated troponin Likely 2/2 NSTEMI. EKG with LVH, no ST elevations or depressions. Trop uptrended to 1.5. - Cardiology consulted (Dr. Ventura), appreciate recommendations. ESRD on dialysis - Missed dialysis on 01/05. BUN/Cr: 64:8. - Nephrology consulted (Dr. De La Fuente), appreciate recs. CAD - ASA daily. FLP in AM. Cath in 2017 per records, no stent placed at that time. DM A1c 5.5 - SS insulin HTN - see plan above. On clonidine at home, elevated BP potentially from noncompliance vs rebound HTN. Will start home regimen and adjust as needed. Asthma - Continue home meds. Duoneb PRN for now. Depression - Continue home meds when able. Neuropathy - Continue home meds when able. Code: DNR - confirmed with family PPx: protonix, heparin Dispo: stroke, inpatient. LOS > 48hrs. Case discussed with Dr. Covarrubias Addendum - Attending - Attending Attestation Date/Time: 01/09/202015 I personally evaluated the patient and discussed the management with Dr. Limon I agree with the History, Examination, Assessment and Plan documented above with any addition or exceptions noted below - Patient nonverbal; unable to answer questions; follows some simple commands. Afebrile VSS. A/P: 1) Hypertensive emergency - missed dialysis session and this could be contributing ; Nephrology notified and will see patient; will restart BP meds. 2) ESRD- continue dialysis, 3) Encephalopathy- multifactorial- will obtain MRI once COVID status determined. 3) DM- monitor accuchecks.
[2020-01-09] MEDS ORDERED: Enoxaparin Sodium 40 MG/0.4 ML SYRINGE SC SCH (09:00)
[2020-01-09] MEDS ORDERED: BUPROPION HCL 200 MG PO SCH (09:00)
[2020-01-09] MEDS ORDERED: Aspirin 325 mg Enteric Coated Tablet PO SCH (09:00)
[2020-01-09] MEDS ORDERED: Prevnar 13-Val Conj/PF 0.5 ML SYRINGE IM ONE (09:00)
[2020-01-09] MEDS: Pantoprazole 40 MG VIAL IVP SCH (09:25)
[2020-01-09] MEDS: Heparin 5,000 UNITS/ML VIAL SC SCH ×2 (09:25→20:47)
[2020-01-09 11:22] VITALS: BMI 33.3
[2020-01-09 11:56] LABS: SARS-CoV-2 MS2 Positive; SARS-CoV-2 N Gene Negative; SARS-CoV-2 S Gene Negative; SARS-CoV-2 orf1ab Negative
[2020-01-09] MEDS: Aripiprazole 2 MG TAB PO SCH (12:23)
[2020-01-09] MEDS: Aspirin 300 MG Suppository PR SCH (12:23)
[2020-01-09] MEDS: Mometasone 200 MCG/Formoterol 5 MCG 120 PUFF INHALER INH SCH ×2 (12:23→18:49)
[2020-01-09] MEDS: clonazePAM 0.5 MG TAB PO SCH ×2 (12:23→20:46)
[2020-01-09] MEDS: FLUoxetine HCl 20 MG CAP PO SCH (12:24)
--- NOTE | 2020-01-09 13:00 | PRG ---
DATE OF SERVICE: 01/09/2020 SUBJECTIVE: A 69-year-old female being seen for end-stage renal disease. The patient did not tolerate dialysis well. The patient remained unresponsible to any verbal question. OBJECTIVE: GENERAL: On examination, the patient is resting. VITAL SIGNS: Afebrile, pulse 67, breathing is 16, and blood pressure 173/78. HEENT: Head normocephalic and atraumatic. Eyes intact, no ulcers. Nose intact, no ulcers. Ears intact, no ulcers. NECK: Supple. No JVD. CHEST: Symmetrical and clear. CARDIOVASCULAR: Shows S1 and S2, no rub, no murmur. GASTROINTESTINAL: Abdomen is soft, bowel sounds positive. EXTREMITIES: Show no edema or ulcers. SKIN: Shows no rash or petechiae. MUSCULOSKELETAL: Shows no joint swelling or stiffness. GENITOURINARY: Shows no Franco or CVA tenderness. NEUROLOGIC: The patient is resting. LABORATORY DATA: Lab show potassium is 3.6. ASSESSMENT AND PLAN: 1. Stage 6 chronic kidney disease. No indication for dialysis. 2. Hypertension. Titrate home medication. 3. Status post myocardial infarction. 4. Medications based on GFR are appropriate. Job ID: [id number]
[2020-01-09] MEDS: Labetalol HCl 100 MG/20 ML VIAL SLOW IVP PRN (15:12)
[2020-01-09] MEDS: hydrALAZINE 20 MG/ML VIAL SLOW IVP PRN (18:49)
[2020-01-09] MEDS: Pregabalin 50 MG CAP PO SCH (20:47)
[2020-01-09] MEDS: Metoprolol Tartrate 5 MG/5 ML VIAL IVP SCH (21:36)
[2020-01-10] MEDS: Labetalol HCl 100 MG/20 ML VIAL SLOW IVP PRN ×2 (00:01→05:58)
[2020-01-10] MEDS: Labetalol HCl 100 MG/20 ML VIAL SLOW IVP SCH (00:07)
[2020-01-10] MEDS: Metoprolol Tartrate 5 MG/5 ML VIAL IVP SCH ×4 (03:46→21:52)
[2020-01-10] MEDS: hydrALAZINE 20 MG/ML VIAL SLOW IVP PRN (05:02)
--- NOTE | 2020-01-10 05:18 | CON ---
DATE OF CONSULTATION: 01/09/2020 PRIMARY INSIDE SALES ASSOCIATE: Marie Philip MD REASON FOR CONSULTATION: Elevated troponins. HISTORY OF PRESENT ILLNESS: Ms. Briggs is a very pleasant 69-year-old female, who comes to the hospital for altered mentation. She missed dialysis on Monday, today is . Because she missed, she was called, they went to look for her at home and she was found to be altered, so she was brought into the hospital for further evaluation and care. She sees Dr. Philip for many years now. She had a heart catheterization exactly about 1 month ago and it showed calcified coronaries with just mild disease, 20% to 30% stenosis. No stenting was done, and medical therapy was recommended. During this hospital stay, she had a very elevated blood pressure in 200s range and was admitted and troponins were drawn, which were positive, so Cardiology has been consulted for this. PAST MEDICAL HISTORY: 1. Coronary artery disease as above. 2. Type 2 diabetes. 3. End-stage renal disease, on hemodialysis Monday, , Monday. 4. Hypertension. 5. Anxiety and depression. 6. Neuropathy. SURGICAL HISTORY: 1. Carpal tunnel surgery in both hands. 2. Fistula in both arms. 3. Partial hysterectomy. 4. Heart catheterization, last 1 month ago. FAMILY HISTORY: Positive for early coronary artery disease and diabetes. SOCIAL HISTORY: No alcohol, tobacco, or drugs, this is per chart review. REVIEW OF SYSTEMS: Unobtainable as the patient remains nonverbal. OUTPATIENT MEDICATIONS: 1. Fluoxetine. 2. Fluticasone with salmeterol, which is Advair 250/50. 3. Ipratropium. 4. Clonidine 0.3 p.o. t.i.d. 5. Ventolin inhaler. 6. Alprazolam. 7. Aspirin 81 a day. 8. Lyrica 100 mg t.i.d. 9. Bupropion 300 mg a day. 10. Amlodipine 5 mg a day. 11. Pantoprazole 40 q.a.m. ALLERGIES: NO KNOWN DRUG ALLERGIES. PHYSICAL EXAMINATION: VITAL SIGNS: Temperature 99.0, pulse 106, respiratory rate 20, saturating 98% on room air, blood pressure 218/91. GENERAL: Awake, alert, nonverbal. She just hums to any questions. HEENT: Normocephalic and atraumatic. NECK: Supple. LUNGS: Clear. CARDIOVASCULAR: S1 and S2. No S3 or S4. There is a grade 2/6 systolic murmur at the right upper sternal border. ABDOMEN: Soft. EXTREMITIES: No edema. SKIN: Warm and dry. LABORATORY DATA: Laboratory work was reviewed. White count of 14 on arrival, hemoglobin of 12, hematocrit 39, platelet count of 195. Chemistries were reviewed and they were unremarkable except for elevated BUN and creatinine. GFR is 9. Troponin was 0.5 and then up to 1.4. CK-MB was 12 and down to 10. Triglycerides of 85, cholesterol 154, LDL of 68, HDL of 69. UA was unremarkable. Urine opiates were detected. Otherwise, the rest of the urine drug screen was negative. COVID-19 PCR was not detected and hep B surface antigen was nonreactive. IMAGING STUDIES: EKG was reviewed. CT of the brain was reviewed and it showed no evidence of an acute intracranial abnormality. ASSESSMENT AND PLAN: 1. Altered mental status. 2. Type 2 demand type of ischemia. 3. Coronary artery disease, mild, unlikely that this is an ACS. 4. End-stage renal disease, on hemodialysis. PLAN: 1. I doubt that this was primarily a cardiac event. I would recommend MRI of the brain to make sure there was no stroke that could be provoking this situation, that is why her blood pressure would be so high. 2. It could be hypertensive encephalopathy as well, we would recommend lowering the blood pressure, maintaining in the 140s to 160s until MRI is done making sure this is not a stroke. 3. It looks more like a global process, infection is high in the differential. However, no fevers have been seen. Consider LP if fever arises. 4. Echocardiogram will be ordered. 5. Dr. Philip will follow up in the morning. Job ID: [id number]
[2020-01-10] MEDS: Mometasone 200 MCG/Formoterol 5 MCG 120 PUFF INHALER INH SCH ×2 (06:45→19:09)
--- NOTE | 2020-01-10 07:18 | PDOC.FM ---
- Subjective Subjective: Patient was laying in bed at the time of evaluation, with intermittent, non- purposeful movements. Patient would not cooperate with exam and was A&Ox0. Patient's BP was elevated overnight, but PRN antihypertensive medications were regrettably not administered. - Objective Vital Signs & Weight: Vital Signs (12 hours) Temp Pulse Resp BP BP BP Pulse Ox 01/10/20 05:58 93 253/116 H 01/10/20 05:02 93 237/109 H 01/10/20 03:23 97.4 F L 95 20 236/99 H 95 01/10/20 00:07 93 237/109 H 01/09/20 23:24 97.6 F 99 20 217/108 H 95 01/09/20 19:39 98 F 107 H 20 130/67 100 01/09/20 18:49 214/100 H Weight Admit Weight 82.554 kg Weight 82.554 kg I&O: 01/08/20 01/09/20 01/10/20 06:59 06:59 06:59 Output Total 200 Balance -200 Result Diagrams: 01/09/20 04:48 01/09/20 04:48 Phys Exam - Physical Examination Constitutional: NAD HEENT: moist MMs, sclera anicteric, oral pharynx no lesions Neck: supple, full ROM Respiratory: no wheezing, no rales, no rhonchi, clear to auscultation bilateral Cardiovascular: RRR, no significant murmur, no rub Gastrointestinal: soft, non-tender, no distention Musculoskeletal: no edema, pulses present Neurological: non-focal, moves all 4 limbs Deviation from normal: A&Ox0 Skin: no rash Dx/Plan (1) ESRD needing dialysis Code(s): N18.6 - END STAGE RENAL DISEASE Status: Acute (2) Anemia of renal disease Code(s): D63.1 - ANEMIA IN CHRONIC KIDNEY DISEASE Status: Chronic (3) Asthma Code(s): J45.909 - UNSPECIFIED ASTHMA, UNCOMPLICATED Status: Chronic Qualifiers: Asthma complication type: uncomplicated (4) Depression Code(s): F32.9 - MAJOR DEPRESSIVE DISORDER, SINGLE EPISODE, UNSPECIFIED Status : Chronic (5) Diabetes Code(s): E11.9 - TYPE 2 DIABETES MELLITUS WITHOUT COMPLICATIONS Status: Chronic Qualifiers: Diabetes mellitus type: type 2 Diabetes mellitus complication status: with unspecified complications (6) Hypertension Code(s): I10 - ESSENTIAL (PRIMARY) HYPERTENSION Status: Chronic (7) Neuropathy Code(s): G62.9 - POLYNEUROPATHY, UNSPECIFIED Status: Chronic - Plan Plan: Patient is a 69 y/o female with a PMH significant for ESRD requiring Dialysis, CAD, DM and HTN who presents to the ED with AMS. 1. Metabolic Encephalopathy -GCS: 11 during initial evaluation in ED -Suspect TIA/CVA, HTN Emergency -CT Brain: NAF -CXR: NAF -MRI: Pending -UA: Negative -UDS: +Opiates - patient does not currently take opiates at home - possible substance abuse -Nephro: Consulted Dr. Sanches - recs appreciated -Attempted Dialysis on 01/07 - stopped due to HTN and tachycardia -Patient is outside Permissive HTN Window - will initiate aggressive BP control -COVID-19: Negative - precautions d/c'd -DNR Status confirmed w/ family - Palliative Care consulted, recs appreciated -Will continue to monitor vital signs and mental status - will likely start Nicardipene gtt if unable to control BP w/ TITA antihypertensive regimen 2. Elevated Troponin -Trops: 0.06, 0.51, 1.4 -EKG: LVH w/o ST-Segment changes -Likely 2/2 NSTEMI -Cardiology: Consulted, recs appreciated 3. ESRD requiring Dialysis -Patient reportedly missed dialysis on 01/05 -BUN: 64 > 35 -Cr: 8 > 5.45 -Nephrology: Consulted, recs appreciated 4. CAD -Will continue home medication regimen -Per Cardiology, patient received Heart Cath in 11/2019 - no stent placed at that time. -FLP: Tri(85), Chol(154), LDL(68), HDL(69) 5. DM -HgA1c: 5.5 -Glucose measurements currently at goal -Hypoglycemia Protocol 6. HTN -Patient failed Bedside Swallow - will likely require IV antihypertensive regimen -See #1 7. Asthma -Will continue home medication regimen -DuoNebs PRN 8. Depression -Will restart home medication regimen when mental status improves 9. Neuropathy -Will restart home medication regimen when mental status improves PCP: [facility] Code: DNR Diet: NPO IVF: None VTE PPx: Heparin Dispo: Patient is currently being evaluated on the Stroke Floor for Metabolic Encephalopathy, CVA vs. HTN Emergency. Will initiate aggressive BP control this AM and re-engage w/ STAT MRI. Expected LOS > 48H. Addendum - Attending - Attending Attestation Date/Time: 01/10/20 [id number] I personally evaluated the patient and discussed the management with Dr. Wells I agree with the History, Examination, Assessment and Plan documented above with any addition or exceptions noted below - Patient sitting on side of bed. Was able to ambulate to bathroom with assistance but still nonverbal. Afebrile VSS. A/P: 1) Encephalopathy- uncertain etiology- possibly from hypertensive emergency vs. uremia vs CVA- Unable to obtain MRI due to agitation even with sedation- neurology consulted; will try and obtain MRI with anesthesia. 2) Hypertensive emergency- BP mproved; continue current IV meds. 3) ESRD - continue HD as per nephrology.
[2020-01-10] MEDS: Amlodipine 10 MG TAB PO SCH (09:03)
[2020-01-10] MEDS: FLUoxetine HCl 20 MG CAP PO SCH (09:04)
[2020-01-10] MEDS: Aripiprazole 2 MG TAB PO SCH (09:04)
[2020-01-10] MEDS: clonazePAM 0.5 MG TAB PO SCH ×2 (09:04→21:53)
[2020-01-10] MEDS: Heparin 5,000 UNITS/ML VIAL SC SCH ×2 (09:05→21:53)
[2020-01-10] MEDS: Aspirin 300 MG Suppository PR SCH (09:05)
[2020-01-10] MEDS: Pantoprazole 40 MG VIAL IVP SCH (09:06)
--- NOTE | 2020-01-10 09:20 | PRG ---
DATE OF SERVICE: 01/10/2020 SUBJECTIVE: A 69-year-old female, being seen for end-stage renal disease. The patient does not have any verbal communication. OBJECTIVE: Vital Signs: Afebrile, pulse 102, breathing 16, blood pressure 153/72. HEENT: Head normocephalic and atraumatic. Eyes intact, no ulcers. Nose intact, no ulcers. Ears intact, no ulcers. Neck: Supple. No JVD. Chest: Symmetrical and clear. Cardiovascular: Shows S1 and S2, no rub, no murmur. Gastrointestinal: Abdomen is soft, bowel sounds positive. Extremities: Show no edema or ulcers. Skin: Shows no rash or petechiae. Musculoskeletal: Shows no joint swelling or stiffness. Genitourinary: Shows no Franco or CVA tenderness. Neurologic: The patient is unresponsive. LABORATORY DATA: Reviewed. ASSESSMENT AND PLAN: 1. Stage 6 chronic kidney disease, plan dialysis as per schedule. 2. Hypertension, stable. 3. Anemia, stable. 4. Medication based on GFR appropriate. Job ID: [id number]
--- NOTE | 2020-01-10 09:21 | PDOC.CPN ---
- Subjective Date: 01/10/20 Time: 08:00 Interval history: The pt seen and examined. No overnight events. No cardiac complaints. - Objective Allergies/Adverse Reactions: Allergies Allergy/AdvReac Type Severity Reaction Status Date / Time No Known Allergies Allergy Verified 10/14/19 22:24 Visit Medications: Current Medications Acetaminophen (Tylenol) 650 mg PO Q4H PRN PRN Reason: Headache/Fever/Mild Pain (1-3) Acetaminophen (Tylenol) 650 mg DC Q4H PRN PRN Reason: Headache/Fever/Mild Pain (1-3) Last Admin: 01/09/20 09:31 Dose: 650 mg Albuterol Sulfate (Proventil Hfa) 2 puff INH Q4HR PRN PRN Reason: Wheezing Albuterol/Ipratropium (Duoneb) 3 ml NEB [id number] PRN PRN Reason: SOB &/or Wheezing Amlodipine Besylate (Norvasc) 10 mg PO DAILY [facility] Last Admin: 01/10/20 09:03 Dose: Not Given Aripiprazole (Abilify) 2 mg PO DAILY [facility] Last Admin: 01/10/20 09:04 Dose: Not Given Aspirin (Aspirin) 300 mg DC DAILY [facility] Last Admin: 01/10/20 09:05 Dose: 300 mg Clonazepam (Klonopin) 0.5 mg PO BID [facility] Last Admin: 01/10/20 09:04 Dose: Not Given Dextrose/Water (Dextrose 50%) 25 gm SLOW IVP PRN PRN PRN Reason: Hypoglycemia Fluoxetine HCl (Prozac) 40 mg PO QAM [facility] Last Admin: 01/10/20 09:04 Dose: Not Given Glucagon (Glucagon) 1 mg IM PRN PRN PRN Reason: Hypoglycemia Heparin Sodium (Porcine) (Heparin) 5,000 units SC BID [facility] Last Admin: 01/10/20 09:05 Dose: 5,000 units Hydralazine HCl (Apresoline) 10 mg SLOW IVP Q4H PRN PRN Reason: SBP Greater Than 180 Last Admin: 01/10/20 05:02 Dose: 10 mg Dextrose/Water (D5w) 1,000 mls @ 0 mls/hr IV .Q0M PRN PRN Reason: Hypoglycemia Insulin Human Lispro (Humalog) 0 units SC .MILD SLIDING SCALE PRN PRN Reason: Mild Correctional Scale Labetalol HCl (Normodyne) 10 mg SLOW IVP Q4H PRN PRN Reason: SBP Greater Than 180 Last Admin: 01/10/20 05:58 Dose: 10 ml Lorazepam (Ativan) 0.5 mg SLOW IVP Q6H PRN PRN Reason: Anxiety/Agitation Metoprolol Tartrate (Lopressor) 5 mg IVP 0300,0900,1500,2100 [facility] Last Admin: 01/10/20 03:46 Dose: 5 mg Mometasone Furoate/Formoterol Fumar (Dulera 200 Mcg/5 Mcg Inhaler) 2 puff INH BID-RT [facility] Last Admin: 01/09/20 18:49 Dose: Not Given Non-Formulary Medication (Bupropion Hcl [Bupropion Hcl Xl]) 200 mg PO BID [facility] Ondansetron HCl (Zofran Odt) 4 mg PO Q6H PRN PRN Reason: Nausea/Vomiting Ondansetron HCl (Zofran) 4 mg IVP Q6H PRN PRN Reason: Nausea/Vomiting Pantoprazole Sodium (Protonix) 40 mg IVP DAILY [facility] Last Admin: 01/10/20 09:06 Dose: 40 mg Pantoprazole Sodium (Protonix) 40 mg PO QAM [facility] Last Admin: 01/10/20 09:06 Dose: Not Given Pregabalin (Lyrica) 100 mg PO HS [facility] Last Admin: 01/09/20 20:47 Dose: Not Given Sodium Chloride (Flush - Normal Saline) 10 ml IVF PRN PRN PRN Reason: Saline Flush Last Admin: 01/09/20 21:35 Dose: 10 ml Vital Signs & Weight: Vital Signs Temp Pulse Resp BP BP BP BP 01/10/20 09:03 102 H 01/10/20 07:00 97.7 F 102 H 20 153/72 H 01/10/20 05:58 93 253/116 H 01/10/20 05:02 93 237/109 H 01/10/20 03:23 97.4 F L 95 20 236/99 H 01/10/20 00:07 93 237/109 H 01/09/20 23:24 97.6 F 99 20 217/108 H Pulse Ox 01/10/20 09:03 01/10/20 07:00 98 01/10/20 05:58 01/10/20 05:02 01/10/20 03:23 95 01/10/20 00:07 01/09/20 23:24 95 Admit Weight 182 lb Weight 182 lb - Physical Exam General: other (confused) Cardiac: regular rate and rhythm, S1/S2 Lungs: decreased breath sounds - Labs Result Diagrams: 01/09/20 04:48 01/09/20 04:48 Troponin/CKMB CK-MB (CK-2) 10.2 ng/mL (0-6.6) H* 01/09/20 04:48 Troponin I 1.467 ng/mL (< 0.028) H* 01/09/20 04:48 - Telemetry Sinus rhythms and dysrhythmias: sinus rhythm - Assessment/Plan Assessment/Plan: 1. HTN urgency - Norvasc 10mg qd was resumed from this AM; On Metoprolol 5mg IV push q 6 hrs. Nephrology to manage. 2. Metabolic Encephalopathy possible 2/2 TIA/CVA, or HTN urgency - Pt. undergoing EEG at this time. 3. CAD with s/p LHC in 11/2019 with 30-40% stenosis with severe calcification with no FLD in prox LAD, 30% in mid RCA with no FLD and EF 60-65% - 4. ESRD with HD - managed by Dr Mariano/Dr. Sanches 5. DM type 2 6. Asthma 7. Sleep Apnea 8. Anemia 9. Elevated Trop 2/2 type 2 NSTEMI 2/2 HTN urgency? Pt. does not have significant CAD. MAR reviewed * DNR Status Pt. seen and eval. by me. I agree with the A/P by the SALES INCENTIVE ANALYST. The cardiac status is stable. The HTN will be dealt with by the tearoom hostess. I will sign off. If any cardiac changes please consult [facility] again.
[2020-01-10] MEDS: Lorazepam 2 MG/ML VIAL SLOW IVP PRN (09:30)
--- NOTE | 2020-01-10 14:48 | CON ---
NEUROLOGY CONSULTATION DATE OF CONSULTATION: 01/10/2020 REASON FOR CONSULTATION: Altered mental status. HISTORY OF PRESENT ILLNESS: Ms. Briggs is a 69-year-old female with medical history significant for end-stage renal disease, on hemodialysis, and hypertension, who presented with altered mental status. She was last seen normal by family member on Monday night. She woke up on the morning of 01/07 and was extremely altered. At baseline, she is able to take care of herself and is fully functional. She usually gets dialysis Monday, , and Monday, but missed dialysis on Monday. When the EMS arrived, she was unable to answer the question and open her eyes per daughter. She had a cardiac cath a few years ago that showed coronary artery disease. She also has hypertension. She was found to be hypertensive in the emergency room. According to the daughter, the patient sustained a fall on Monday and she injured her shoulder. She was taken to the emergency room and was started on pain medication. No focal deficits or facial droop noted by the daughter. The patient is unable to provide the history due to mental illness and the history is taken from review of the records. In the emergency room, she was given nitroglycerin. The patient refused the medications. ALLERGIES: NO KNOWN DRUG ALLERGIES. PAST MEDICAL HISTORY: Hypertension, end-stage renal disease, coronary artery disease, diabetes mellitus. PAST SURGICAL HISTORY: Carpal tunnel surgery of both hands, hysterectomy. SOCIAL HISTORY: According to the daughter, she is able to take care of herself. No documented history of smoking, alcohol, illegal drug use. She lives alone at home. FAMILY HISTORY: Significant for heart disease and diabetes. REVIEW OF SYSTEMS: Unobtainable due to mental status. Allergies/Adverse Reactions Allergies Allergy/AdvReac Type Severity Reaction Status Date / Time No Known Allergies Allergy Verified 10/14/19 22:24 - Home Medications Medication Instructions Recorded Confirmed Type FLUoxetine HCl 60 mg PO QAM 11/26/14 12/15/17 History Fluticasone/Salmeterol [Advair 2 puff INH BID 11/26/14 12/15/17 History Diskus 250/50] Ipratropium [place] [Ipratropium 1 inh INH TID 11/26/14 12/15/17 History [place] 0.03% Nasal [place]] cloNIDine HCl 0.3 mg PO TID 11/26/14 12/15/17 History Albuterol Sulfate [Ventolin HFA] 2 puff INH Q4HR PRN 01/05/15 12/15/17 History ALPRAZolam [Alprazolam] 0.25 mg PO ASDIR PRN 05/29/17 12/15/17 History Aspirin [Ecotrin Regular Strength] 81 mg PO QAM 05/29/17 12/15/17 History Pregabalin [Lyrica] 100 mg PO TID 05/29/17 12/15/17 History buPROPion HCl [buPROPion HCl XL] 300 mg PO QAM 05/29/17 12/15/17 History Amlodipine Besylate [amLODIPine 5 mg PO QAM 12/15/17 12/15/17 History Besylate] Pantoprazole Sodium 40 mg PO QAM 12/15/17 12/15/17 History - Objective Vital Signs & Weight: Vital Signs (12 hours) Temp Pulse Resp BP BP BP Pulse Ox 01/10/20 05:58 93 253/116 H 01/10/20 05:02 93 237/109 H 01/10/20 03:23 97.4 F L 95 20 236/99 H 95 01/10/20 00:07 93 237/109 H 01/09/20 23:24 97.6 F 99 20 217/108 H 95 01/09/20 19:39 98 F 107 H 20 130/67 100 01/09/20 18:49 214/100 H Weight Admit Weight 82.554 kg Weight 82.554 kg I&O: 01/08/20 01/09/20 01/10/20 06:59 06:59 06:59 Output Total 200 Balance -200 - Physical Exam Constitutional: NAD HEENT: normocephalic and atraumatic, PERRLA, EOMI, no scleral icterus, MMM Neck: supple, FROM, trachea midline Chest: no-tender to palpation, no lesions Heart: RRR, normal S1/S2, no murmurs/rubs/gallops, pulses present Lungs: CTAB, no respiratory distress, good air movement Abdomen: soft, non-tender, bowel sounds present, no masses/distention Neurological: Mental status: The patient is alert, awake, does not follow commands, does not maintain eye contact. Cranial nerves 2 through 12 intact. Motor: Muscle tone and bulk are normal. Moving all 4 extremities equally and symmetrically. Sensory: Withdraws all 4 extremities to nailbed pressure. Cerebellar: Unable to assess secondary to mental status. Gait deferred due to patient's safety reasons. 01/08/20 11:46 Lab results: WBC 14.9 thou/uL (4.8-10.8) H 01/08/20 11:46 Hgb 12.7 g/dL (12.0-16.0) 01/08/20 11:46 Hct 39.2 % (36.0-47.0) 01/08/20 11:46 MCV 98.6 fL (78.0-98.0) H 01/08/20 11:46 Plt Count 195 thou/uL (130-400) 01/08/20 11:46 Neutrophils % 82.6 % (42.0-75.0) H 01/08/20 11:46 Sodium 139 mmol/L (136-145) 01/08/20 11:46 Potassium 4.6 mmol/L (3.5-5.1) 01/08/20 11:46 Chloride 102 mmol/L (98-107) 01/08/20 11:46 Carbon Dioxide 18 mmol/L (23-31) L 01/08/20 11:46 BUN 64 mg/dL (9.8-20.1) H 01/08/20 11:46 Creatinine 8.37 mg/dL (0.6-1.1) H 01/08/20 11:46 Glucose 146 mg/dL (80-115) H 01/08/20 11:46 Calcium 9.3 mg/dL (7.8-10.44) 01/08/20 11:46 Total Bilirubin 0.3 mg/dL (0.2-1.2) 01/08/20 11:46 AST 43 U/L (5-34) H 01/08/20 11:46 ALT 20 U/L (8-55) 01/08/20 11:46 Alkaline Phosphatase 94 U/L (40-110) 01/08/20 11:46 CK-MB (CK-2) 8.1 ng/mL (0-6.6) H* 01/08/20 11:46 Serum Total Protein 7.3 g/dL (6.0-8.3) 01/08/20 11:46 Albumin 4.2 g/dL (3.4-4.8) 01/08/20 11:46 Urine Ketones Negative mg/dL (Negative) 01/08/20 11:46 Urine Blood Trace (Negative) A 01/08/20 11:46 Urine Nitrite Negative (Negative) 01/08/20 11:46 Ur Leukocyte Esterase Negative Jahaira/uL (Negative) 01/08/20 11:46 Urine RBC None Seen HPF (0-3) 01/08/20 11:46 Urine WBC 0-3 HPF (0-3) 01/08/20 11:46 Ur Squamous Epith Cells None Seen HPF (0-3) 01/08/20 11:46 Urine Bacteria None Seen HPF (None Seen) 01/08/20 11:46 - Radiology Interpretation CT scan - head Status: report reviewed by me (neg for acute process) Chest x-ray Status: report reviewed by me (normal) - Problem List (1) ESRD needing dialysis Current Visit: No Status: Acute Code(s): N18.6 - END STAGE RENAL DISEASE (2) Anemia of renal disease Current Visit: No Status: Chronic Code(s): D63.1 - ANEMIA IN CHRONIC KIDNEY DISEASE (3) Asthma Current Visit: No Status: Chronic Code(s): J45.909 - UNSPECIFIED ASTHMA, UNCOMPLICATED Qualifiers: Asthma complication type: uncomplicated (4) Depression Current Visit: No Status: Chronic Code(s): F32.9 - MAJOR DEPRESSIVE DISORDER , SINGLE EPISODE, UNSPECIFIED (5) Diabetes Current Visit: No Status: Chronic Code(s): E11.9 - TYPE 2 DIABETES MELLITUS WITHOUT COMPLICATIONS Qualifiers: Diabetes mellitus type: type 2 Diabetes mellitus complication status: with unspecified complications (6) Hypertension Current Visit: No Status: Chronic Code(s): I10 - ESSENTIAL (PRIMARY) HYPERTENSION (7) Person under investigation for COVID-19 Current Visit: Yes Status: Acute Code(s): Z20.828 - CONTACT W AND EXPOSURE TO OTH VIRAL COMMUNICABLE DISEASES ASSESSMENT AND PLAN: Ms. Briggs is a 69-year-old female, was consulted because of because of altered mental status, seems to be multifactorial secondary to hypertensive emergency versus TIA or acute intracranial processes versus metabolic encephalopathy secondary to missing one session of dialysis. Continue aspirin for secondary stroke prevention. Recommend MRI to rule out acute intracranial process. EEG to rule out underlying seizure activity. Blood pressure control until we get MRI to rule out acute intracranial process. Strict control of the blood sugar. Continue home medications. Consider high-intensity statin for secondary stroke prevention. Continue medical management per primary. Telemetry. Further recommendations depends on the results of the testing. PT/OT/Speech, we will continue to follow. Thank you for the consult. Job ID: [id number] MTDD
[2020-01-10] MEDS ORDERED: Ziprasidone 20 MG CAP PO PRN (17:40)
[2020-01-10] MEDS: Haloperidol Lactate 5 MG/ML VIAL SLOW IVP PRN (17:56)
[2020-01-10] MEDS: Pregabalin 50 MG CAP PO SCH (21:52)
[2020-01-11] MEDS: Lorazepam 2 MG/ML VIAL SLOW IVP PRN ×2 (00:33→18:23)
[2020-01-11] MEDS: Metoprolol Tartrate 5 MG/5 ML VIAL IVP SCH ×5 (04:52→23:08)
[2020-01-11] MEDS: Haloperidol Lactate 5 MG/ML VIAL SLOW IVP PRN ×2 (05:06→18:45)
[2020-01-11] MEDS: Mometasone 200 MCG/Formoterol 5 MCG 120 PUFF INHALER INH SCH ×2 (06:29→18:31)
--- NOTE | 2020-01-11 07:52 | PDOC.FM ---
- Subjective Subjective: Patient is not really responsive this am. Looking side to side, moving legs, but not responding to questions or obeying commands. Dtr in room at bedside reports no new concerns. Plan for call to other daughter, SAUNDRA, today to discuss Hospice vs Peg tube placement. Pt is NPO day #3. - Objective MAR Reviewed: Yes Vital Signs & Weight: Vital Signs (12 hours) Pulse Resp BP BP Pulse Ox 01/11/20 03:00 89 20 197/93 H 01/10/20 23:00 74 20 144/70 H 98 01/10/20 20:00 98 Weight Admit Weight 82.554 kg Weight 82.554 kg I&O: 01/10/20 01/11/20 01/12/20 06:59 06:59 06:59 Intake Total 0 Output Total 200 Balance -200 0 Result Diagrams: 01/09/20 04:48 01/09/20 04:48 Phys Exam - Physical Examination Constitutional: NAD obtunded, not responsive to questioning but arousable HEENT: moist MMs Neck: no nodes, no JVD Respiratory: no wheezing, no rales, clear to auscultation bilateral Cardiovascular: RRR, no significant murmur Gastrointestinal: soft, non-tender, no distention, positive bowel sounds Musculoskeletal: no edema, pulses present no tone in UE b/l, moving b/l LE randomly, PERRLA, EOMI, non-verbal today Skin: no rash, cap refill <2 seconds Dx/Plan (1) Encephalopathy acute Code(s): G93.40 - ENCEPHALOPATHY, UNSPECIFIED Status: Acute (2) Hypertension Code(s): I10 - ESSENTIAL (PRIMARY) HYPERTENSION Status: Chronic (3) ESRD needing dialysis Code(s): N18.6 - END STAGE RENAL DISEASE Status: Acute (4) Anemia of renal disease Code(s): D63.1 - ANEMIA IN CHRONIC KIDNEY DISEASE Status: Chronic (5) Depression Code(s): F32.9 - MAJOR DEPRESSIVE DISORDER, SINGLE EPISODE, UNSPECIFIED Status : Chronic (6) Diabetes Code(s): E11.9 - TYPE 2 DIABETES MELLITUS WITHOUT COMPLICATIONS Status: Chronic Qualifiers: Diabetes mellitus type: type 2 Diabetes mellitus complication status: with unspecified complications - Plan Plan: Encephalopathy 2/2 Hypertensive Emergency vs CVA vs Uremia: - continue dialysis - pt continues to be encephalopathic despite improved BP - MRI was not completed d/t agitation, will discuss MRI with anesthesia with family and radiology, echo wnl - COVID test NEGATIVE. - Pt NPO day #3, plan for discussion with MPOA today regarding PEG tube vs Hospice care. - Continue to monitor VS. Patient is DNR status confirmed with family. Palliative care consulted. Type 2 NSTEMI - recent LHC without significant blockages - cardiology following and not recommending any intervention at this time ESRD on dialysis - Missed dialysis on 01/05. BUN/Cr: 64:8. - continue dialysis T, , . - With encephalopathy will give prn Haldol for dialysis - Nephrology consulted (Dr. De La Fuente), following CAD - ASA daily. DM A1c 5.5 - SS insulin HTN - not tolerating PO, currently on schedule IV metoprolol and prn Labetalol Asthma - Continue home meds. Duoneb PRN for now. Depression - Continue home meds when able. Neuropathy - Continue home meds when able. Code: DNR - confirmed with family PPx: protonix, heparin Dispo: stroke, inpatient. LOS > 48hrs. Case discussed with Dr. Covarrubias Addendum - Attending - Attending Attestation Date/Time: 01/11/20 [id number] I personally evaluated the patient and discussed the management with Dr. Da Silva I agree with the History, Examination, Assessment and Plan documented above with any addition or exceptions noted below - Patient in dialysis- agitated and moving around; only saying the words please and yeah. Afebrile VSS. A/P: 1) Encephalopathy- more awake currently but agitated; given haldol so that dialysis can be completed. 2) HTN- well controlled when calm; continue to monitor. Repeat speech eval to see if safe to swallow. 3) ESRD- continue HD as per nephro.
[2020-01-11] MEDS: Amlodipine 10 MG TAB PO SCH (08:15)
[2020-01-11] MEDS: clonazePAM 0.5 MG TAB PO SCH (08:16)
[2020-01-11] MEDS: Aripiprazole 2 MG TAB PO SCH (08:16)
[2020-01-11] MEDS: FLUoxetine HCl 20 MG CAP PO SCH (08:16)
--- NOTE | 2020-01-11 09:36 | EEG ---
DATE OF SERVICE: 01/10/2020 ATTENDING PHYSICIAN: Apoorva Avalos MD This EEG was performed using 24-channel Gradient Xtek video digital EEG machine with 24-disk electrode. This was an extended 2 hours 10 minutes of inpatient video EEG recording. Digital analysis of the EEG was done for spike and seizure detection, which revealed no abnormalities. BACKGROUND: The posterior background rhythm was not observed. HYPERVENTILATION: Not performed. PHOTIC STIMULATION: Not performed. SLEEP: No stage change was observed. EEG DIAGNOSES: 1. Generalized irregular theta-delta activity seen throughout the recording. 2. Absence of posterior background rhythm. CLINICAL INTERPRETATION: This EEG is consistent with moderate generalized nonspecific cerebral dysfunction. No ictal or interictal epileptiform abnormalities seen during the recording. Job ID: [id number]
[2020-01-11] MEDS: Heparin 5,000 UNITS/ML VIAL SC SCH ×2 (09:38→20:50)
[2020-01-11] MEDS ORDERED: Haloperidol Lactate 5 MG/ML VIAL IM PRN (10:02)
[2020-01-11] MEDS ORDERED: diphenhydrAMINE 50 MG/ML VIAL IM SCH (11:30)
[2020-01-11] MEDS ORDERED: Haloperidol Lactate 5 MG/ML VIAL IM SCH (11:30)
[2020-01-11] MEDS: HumaLOG 300 UNITS/3 ML VIAL SC PRN (11:51)
[2020-01-11] MEDS: Pantoprazole 40 MG VIAL IVP SCH (15:25)
--- NOTE | 2020-01-11 15:31 | EKG ---
Test Reason : Blood Pressure : / mmHG Vent. Rate : 091 BPM Atrial Rate : 091 BPM P-R Int : 178 ms QRS Dur : 096 ms QT Int : 362 ms P-R-T Axes : 038 -16 026 degrees QTc Int : 445 ms Normal sinus rhythm Minimal voltage criteria for LVH, may be normal variant Borderline ECG Confirmed by CAYLA BLOOM, SONDRA ([id number]), photography editor JOSE F LEWIS ([id number]) on 01/11/2020 3:30:51 PM Referred By: Confirmed By:SONDRA KULKARNI MD
--- NOTE | 2020-01-11 16:30 | PDOC.BPN ---
- Brief Progress Note I discussed Mrs. Briggs's status and current management with DELROYRenzo, Doreengerard Briggs this afternoon. Our working diagnosis is still encephalopathy 2/2 HTN Emergency vs CVA vs Medication SE. I did gather new information that Baclofen was prescribed on 01/04 and should not be given in ESRD. However, this should be dialyzed out and she has been receiving dialysis regularly here. We discussed goals of care including pursuing further workup with MRI, possible Hospice care in the event cognitive function does not improve, and need for nutritional support. SAUNDRA reports she desires MRI even though this will likely not twisting frame changer so we will proceed with anesthesia assisted MRI. SAUNDRA also reports she knows her mother would not want a PEG tube and is very adamant that her future will not include that option. With that, she is wanting to proceed with NG tube feeds for now, and in the event she does not tolerate NG tube and mental status does not improve, she is considering hospice care.
[2020-01-11] MEDS: Aspirin 300 MG Suppository PR SCH (18:11)
[2020-01-11] MEDS: Pregabalin 50 MG CAP PO SCH (20:50)
[2020-01-11] MEDS ORDERED: Haloperidol Lactate 5 MG/ML VIAL SLOW IVP SCH (21:15)
[2020-01-12] MEDS: Lorazepam 2 MG/ML VIAL SLOW IVP PRN ×2 (01:47→20:15)
[2020-01-12] MEDS: Metoprolol Tartrate 5 MG/5 ML VIAL IVP SCH ×4 (05:38→18:36)
[2020-01-12] MEDS: Mometasone 200 MCG/Formoterol 5 MCG 120 PUFF INHALER INH SCH ×2 (06:10→18:04)
--- NOTE | 2020-01-12 06:49 | PRG ---
DATE OF SERVICE: 01/11/2020 SUBJECTIVE: Patient is seen and examined in the room. Patient is still confused and is requiring a sitter. She is able to make eye contact, but does not follow commands and is not verbalizing. She did not have acute overnight events. Patient had hemodialysis today for about 3 hours. OBJECTIVE: VITAL SIGNS: Blood pressure 132/72, pulse rate 80 to 100 per minute, respiratory rate 15 to 20 per minute, and saturating 94% on room air. GENERAL: Patient is not in pain or discomfort. Patient has a sitter at the bedside. HEENT: Mucous membranes are moist. No icterus. CVS: Regular rhythm, heart rate normal, no murmurs. LUNGS: Air entry equal bilaterally. No crackles, no wheezing. ABDOMEN: Soft, bowel sounds present, no tenderness. EXTREMITIES: Left upper extremity AV fistula, no edema. ROAD PACKER OPERATOR: Patient is awake, makes eye contact, does not follow commands. PSYCHIATRIC: Not agitated. LABORATORY DATA: No new labs today. ASSESSMENT AND PLAN: 1. End-stage renal disease, on hemodialysis. Patient tolerated hemodialysis today. Anticipate dialysis on Monday. 2. Hypertension. Better control after dialysis. Patient is on amlodipine, hydralazine p.r.n. 3. Anemia. Hemoglobin is stable, not on EPO at present. Job ID: [id number] MTDD
[2020-01-12] MEDS ORDERED: Dextrose 5%-Lactated Ringers 1,000 ML IV SCH (07:00)
--- NOTE | 2020-01-12 07:02 | PDOC.FM ---
- Subjective Subjective: Mrs. Briggs had an eventful night per nursing staff. They attempted NG tube for feeds but were unsuccessful d/t patient not tolerating. She also was very restless and talking, telling the nursing staff her name, speaking in sentences that were appropriate but very confused. She was given Haldol for agitation without much relief. This morning she is resting and again refuses to wake up, but obeying commands and nodding her head to questions. She denies pain. - Objective MAR Reviewed: Yes Vital Signs & Weight: Vital Signs (12 hours) Temp Pulse Resp BP BP Pulse Ox 01/12/20 04:30 98.4 F 91 20 120/65 96 01/11/20 23:07 98.8 F 101 H 20 134/71 97 01/11/20 20:48 98.1 F 77 18 129/59 L 97 01/11/20 20:00 97 Weight Admit Weight 82.554 kg Weight 82.554 kg I&O: 01/11/20 01/12/20 01/13/20 06:59 06:59 06:59 Intake Total 0 0 Balance 0 0 Result Diagrams: 01/09/20 04:48 01/09/20 04:48 Phys Exam - Physical Examination Constitutional: NAD obtunded, but minimally responding HEENT: PERRLA dry MM Neck: supple, full ROM Respiratory: no wheezing, no rales, clear to auscultation bilateral Cardiovascular: RRR, no significant murmur Gastrointestinal: soft, non-tender, no distention Musculoskeletal: no edema, pulses present Neurological: moves all 4 limbs Deviation from normal: AOx0 Deviation from normal: skin tenting, cap refill prolonged Dx/Plan (1) Encephalopathy acute Code(s): G93.40 - ENCEPHALOPATHY, UNSPECIFIED Status: Acute (2) Hypertension Code(s): I10 - ESSENTIAL (PRIMARY) HYPERTENSION Status: Chronic (3) ESRD needing dialysis Code(s): N18.6 - END STAGE RENAL DISEASE Status: Acute (4) Anemia of renal disease Code(s): D63.1 - ANEMIA IN CHRONIC KIDNEY DISEASE Status: Chronic (5) Depression Code(s): F32.9 - MAJOR DEPRESSIVE DISORDER, SINGLE EPISODE, UNSPECIFIED Status : Chronic (6) Diabetes Code(s): E11.9 - TYPE 2 DIABETES MELLITUS WITHOUT COMPLICATIONS Status: Chronic Qualifiers: Diabetes mellitus type: type 2 Diabetes mellitus complication status: with unspecified complications - Plan Plan: Encephalopathy 2/2 Hypertensive Emergency vs CVA vs Drug Toxicity: - continue dialysis, reaching out to nephro in regards to clearance of Baclofen with dialysis - pt encephalopathy improving some although still unclear etiology - MRI was not completed d/t agitation, family desires MRI with anesthesia- trying to coordinate with radiology, echo wnl - COVID test NEGATIVE. - Pt NPO day #4, failed NG tube yesterday, with improved mentation, plan for Speech eval again today. - Continue to monitor VS. Patient is DNR status confirmed with family. Palliative care on board. Type 2 NSTEMI - recent LHC without significant blockages - cardiology following and not recommending any intervention at this time ESRD on dialysis - Missed dialysis on 01/05. BUN/Cr: 64:8. - continue dialysis T, , . - With encephalopathy will give prn Haldol for dialysis - Nephrology consulted (Dr. De La Fuente), following CAD - ASA daily. DM A1c 5.5 - SS insulin HTN - not tolerating PO, currently on schedule IV metoprolol and prn Labetalol Asthma - Continue home meds. Duoneb PRN for now. Depression - Continue home meds when able. Neuropathy - Continue home meds when able. Code: DNR - confirmed with family PPx: protonix, heparin Dispo: stroke, inpatient. LOS > 48hrs. Case discussed with Dr. Covarrubias Addendum - Attending - Attending Attestation Date/Time: 01/12/20 1213 I personally evaluated the patient and discussed the management with Dr. Da Silva I agree with the History, Examination, Assessment and Plan documented above with any addition or exceptions noted below - Patient more wake. Responding to simple questions appropriately and was able to swallow water and her pills this morning. Afebrile VSS. A/P: 1) Encephalopathy- improving sowly; possibly due to medication versus hypertensive versus combination - continue supportive care; possible MRI tomorrow. 2) HTN- improved. 3) ESRD- continue HD
[2020-01-12] MEDS: Heparin 5,000 UNITS/ML VIAL SC SCH ×2 (09:07→20:13)
[2020-01-12] MEDS: Aspirin 300 MG Suppository PR SCH (09:08)
[2020-01-12] MEDS: FLUoxetine HCl 20 MG CAP PO SCH (09:32)
[2020-01-12] MEDS: Amlodipine 10 MG TAB PO SCH (09:32)
[2020-01-12] MEDS: Aripiprazole 2 MG TAB PO SCH (09:32)
[2020-01-12] MEDS: Pantoprazole 40 MG VIAL IVP SCH (10:18)
[2020-01-12] MEDS ORDERED: cloNIDine 0.1 MG TAB PO PRN (13:57)
[2020-01-12] MEDS: Dextrose 5%-Lactated Ringers 1,000 ML IV SCH ×2 (15:44→22:37)
--- NOTE | 2020-01-12 16:48 | PRG ---
DATE OF SERVICE: 01/12/2020 SUBJECTIVE: Patient is seen and examined in the room. Patient had an episode of agitation yesterday and required Haldol. She has sitter by the bedside. OBJECTIVE: VITAL SIGNS: BP 191/91, pulse rate 83 per minute, respiratory rate 20 per minute, oxygen saturation 99% on room air. GENERAL: Patient does not engage in conversation. She is not in pain or discomfort. HEENT: Mucous membranes are moist. No icterus. CVS: Rhythm regular, rate normal. No murmurs. LUNGS: Air entry equal bilaterally, decreased at bases. No wheezing. ABDOMEN: Soft. Bowel sounds present. No tenderness. EXTREMITIES: Left upper extremity fistula. No edema. SENIOR INSTRUCTOR: Patient is awake but does not follow commands. PSYCHIATRIC: Not agitated. LABORATORY DATA: No new labs today. ASSESSMENT AND PLAN: 1. End-stage renal disease, on hemodialysis: Patient had hemodialysis yesterday. Anticipate dialysis on Monday. 2. Hypertension - uncontrolled. Continue with amlodipine daily, clonidine and hydralazine p.r.n. Patient's blood pressure is fluctuating, consider RAAS inhibitors if patient's blood pressure remains uncontrolled 3. Anemia - Patient's hemoglobin is 12.3. We will continue to monitor. 4. Diabetes mellitus - hemoglobin A1c is 5.5. 5. Altered mental status - workup in progress. MRI scan of the brain is pending. Job ID: [id number] MTDD
[2020-01-12] MEDS: HumaLOG 300 UNITS/3 ML VIAL SC PRN (17:03)
[2020-01-12] MEDS: Acetaminophen 325 MG TAB PO PRN (18:35)
[2020-01-12] MEDS: Pregabalin 50 MG CAP PO SCH (20:11)
[2020-01-13] MEDS: Metoprolol Tartrate 5 MG/5 ML VIAL IVP SCH ×3 (00:50→12:19)
[2020-01-13] MEDS: Dextrose 5%-Lactated Ringers 1,000 ML IV SCH ×4 (01:17→23:35)
--- NOTE | 2020-01-13 06:31 | PDOC.FM ---
- Subjective Subjective: Doing well this morning. Sleeping comfortably. Per night nurse, she was agitated and required ativan but has since been sleeping well. - Objective Vital Signs & Weight: Vital Signs (12 hours) Temp Pulse Resp BP BP BP Pulse Ox 01/13/20 05:20 97.5 F L 80 16 141/70 H 100 01/13/20 00:00 98.2 F 80 16 147/88 H 96 01/12/20 20:35 96.9 F L 92 18 126/63 100 01/12/20 19:00 94 172/68 H 01/12/20 18:42 97 119/66 01/12/20 18:35 99 144/58 H Weight Admit Weight 82.554 kg Weight 82.554 kg I&O: 01/11/20 01/12/20 01/13/20 06:59 06:59 06:59 Intake Total 0 0 2095 Output Total 0 Balance 0 0 2095 Result Diagrams: 01/09/20 04:48 01/09/20 04:48 Phys Exam - Physical Examination Constitutional: NAD HEENT: moist MMs Respiratory: no wheezing, no rales, no rhonchi, clear to auscultation bilateral Cardiovascular: RRR, no significant murmur, no rub Gastrointestinal: soft, non-tender Musculoskeletal: no edema Dx/Plan (1) Encephalopathy acute Code(s): G93.40 - ENCEPHALOPATHY, UNSPECIFIED Status: Acute (2) ESRD needing dialysis Code(s): N18.6 - END STAGE RENAL DISEASE Status: Acute (3) Anemia of renal disease Code(s): D63.1 - ANEMIA IN CHRONIC KIDNEY DISEASE Status: Chronic (4) Asthma Code(s): J45.909 - UNSPECIFIED ASTHMA, UNCOMPLICATED Status: Chronic Qualifiers: Asthma complication type: uncomplicated (5) Depression Code(s): F32.9 - MAJOR DEPRESSIVE DISORDER, SINGLE EPISODE, UNSPECIFIED Status : Chronic (6) Diabetes Code(s): E11.9 - TYPE 2 DIABETES MELLITUS WITHOUT COMPLICATIONS Status: Chronic Qualifiers: Diabetes mellitus type: type 2 Diabetes mellitus complication status: with unspecified complications (7) Hypertension Code(s): I10 - ESSENTIAL (PRIMARY) HYPERTENSION Status: Chronic (8) Neuropathy Code(s): G62.9 - POLYNEUROPATHY, UNSPECIFIED Status: Chronic - Plan Plan: Encephalopathy 2/2 Hypertensive Emergency vs CVA vs Drug Toxicity - continue dialysis, due tomorrow - pt encephalopathy improving some although still unclear etiology - MRI was not completed d/t agitation. Anesthesiology consulted. Plans for MRI with anesthesia today at noon. - echo WNL - COVID test NEGATIVE 01/08/2020. - Continue to monitor VS. Patient is DNR status confirmed with family. Palliative care on board. - Diet: CC, pureed texture. Maybeury thickened liquids. Will start at dinner due to planned procedure this afternoon. Type 2 NSTEMI - recent [facility] without significant blockages - cardiology following and not recommending any intervention at this time ESRD on dialysis - continue dialysis T, , . - With encephalopathy will give prn Haldol for dialysis - Nephrology consulted (Dr. De La Fuente), following CAD - ASA daily. DM A1c 5.5 - SS insulin HTN - not tolerating PO, currently on schedule IV metoprolol and prn Labetalol - Per dietary, meds can be crushed. Will consider restarting po medications. Asthma - Continue home meds. Duoneb PRN for now. Depression - Continue home meds when able. Neuropathy - Continue home meds when able. Code: DNR - confirmed with family PPx: protonix, heparin Dispo: stroke, inpatient. LOS > 48hrs. Diet: CC, pureed texture. Maybeury thickened liquids. Will start at dinner due to planned procedure this afternoon.
[2020-01-13] MEDS: Mometasone 200 MCG/Formoterol 5 MCG 120 PUFF INHALER INH SCH ×2 (07:04→18:45)
[2020-01-13] MEDS ORDERED: Lorazepam 2 MG/ML VIAL SLOW IVP PRN (07:56)
[2020-01-13] MEDS ORDERED: Fentanyl 100 MCG/2 ML VIAL ONE (08:57)
[2020-01-13] MEDS ORDERED: Midazolam HCl 2 mg/2 ml Vial ONE (08:57)
[2020-01-13] MEDS ORDERED: Aspirin Chewable 81 MG TAB PO SCH (09:00)
[2020-01-13] MEDS: Heparin 5,000 UNITS/ML VIAL SC SCH ×2 (09:06→20:57)
[2020-01-13] MEDS ORDERED: Famotidine/PF 20 mg/2ml Vial ONE (09:42)
--- NOTE | 2020-01-13 10:49 | MRI ---
Exam: Brain MRI without contrast HISTORY: Severely altered mental status. Slurred speech. Difficulty swallowing. COMPARISON: 08/01/2015 FINDINGS: Calvarial marrow signal intensity: Appropriate T1 signal Gradient echo sequence: No hemorrhage. Stable hemosiderin deposition in the right midbrain and janiya Brain parenchyma: No mass, mass effect or midline shift. Brain volume, age-appropriate. Cortical garcia-white matter differentiation: Preserved Restricted diffusion: Central arterial flow voids are maintained. Absent restricted diffusion White matter signal intensities:Scattered T2, FLAIR white matter hyperintensities due to chronic smal l vessel ischemic changes Sinuses: Adequate aeration of the paranasal sinuses and mastoid air cells. Incidentals: Note is made of a partially empty sella IMPRESSION: Absent restricted diffusion. No acute infarct.
[2020-01-13] MEDS ORDERED: Promethazine HCl 25 MG/ML VIAL IM PRN (11:00)
[2020-01-13] MEDS ORDERED: Ondansetron HCl/PF 4 MG/2 ML Vial IVP PRN (11:00)
[2020-01-13] MEDS ORDERED: Promethazine HCl 25 MG/ML VIAL SLOW IVP PRN (11:00)
[2020-01-13] MEDS: Bupropion 150 MG XL TAB PO SCH (12:02)
[2020-01-13] MEDS: Amlodipine 10 MG TAB PO SCH (12:03)
[2020-01-13] MEDS: FLUoxetine HCl 20 MG CAP PO SCH (12:03)
[2020-01-13] MEDS: Aripiprazole 2 MG TAB PO SCH (12:03)
[2020-01-13] MEDS: Aspirin 325 mg Enteric Coated Tablet PO SCH (12:03)
[2020-01-13] MEDS ORDERED: Lidocaine 1% PF 5 ML VIAL ONE (12:07)
[2020-01-13] MEDS ORDERED: PROPOFOL 200 MG/20 ML VIAL ONE (12:07)
--- NOTE | 2020-01-13 12:12 | PRG ---
DATE OF SERVICE: 01/13/2020 Ms. Briggs has just returned from an MRI that we performed for her altered mental status. There is no evidence of stroke. There is chronic small-vessel disease. Her blood pressure demonstrates better, although not completely controlled numbers. We will continue to adjust her medications. Job ID: [id number]
--- NOTE | 2020-01-13 13:59 | PDOC.HOSPP ---
- Subjective Encounter Date: 01/13/20 Subjective: NEUROLOGY PROGRESS NOTE Patient is much improved today. Alert and oriented x 3 and following commands appropriately. - Objective Vital Signs & Weight: Vital Signs (12 hours) Temp Pulse Resp BP BP BP BP 01/13/20 12:49 81 110/51 L 01/13/20 12:29 87 121/56 L 01/13/20 12:26 88 121/54 L 01/13/20 12:25 89 132/56 L 01/13/20 12:08 97.6 F 84 20 203/86 H 01/13/20 12:03 84 203/86 H 01/13/20 08:59 01/13/20 07:43 97.8 F 78 15 136/57 L 01/13/20 05:20 97.5 F L 80 16 141/70 H Pulse Ox 01/13/20 12:49 01/13/20 12:29 01/13/20 12:26 01/13/20 12:25 01/13/20 12:08 100 01/13/20 12:03 01/13/20 08:59 98 01/13/20 07:43 98 01/13/20 05:20 100 Weight Admit Weight 182 lb Weight 182 lb I&O: 01/12/20 01/13/20 01/14/20 06:59 06:59 06:59 Intake Total 0 2095 Output Total 0 Balance 0 2095 Result Diagrams: 01/09/20 04:48 01/09/20 04:48 Additional Labs: Accuchecks 01/13/20 01/13/20 01/12/20 11:48 05:51 20:31 POC Glucose 142 H 130 H 131 H 01/12/20 16:42 POC Glucose 153 H Radiology Reviewed by me: Yes EKG Reviewed by me: Yes Hospitalist ROS - Review of Systems Constitutional: denies: fever, chills, sweats, weakness, malaise, other Eyes: denies: pain, vision change, conjunctivae inflammation, eyelid inflammation, redness, other Cardiovascular: denies: chest pain, palpitations, orthopnea, paroxysmal noc. dyspnea, edema, light headedness, other Gastrointestinal: denies: nausea, vomiting, abdominal pain, diarrhea, constipation, melena, hematochezia, other Musculoskeletal: denies: neck pain, shoulder pain, arm pain, back pain, hand pain, leg pain, foot pain, other Skin: denies: rash, lesions, demi, bruising, other Neurological: reports: confusion - Medication Medications: Active Medications Generic Name Dose Route Start Last Admin Trade Name Freq PRN Reason Stop Dose Admin Acetaminophen 650 mg 01/08/20 17:27 01/12/20 18:35 Tylenol PO 650 mg Q4H PRN Administration Headache/Fever/Mild Pain (1-3) Amlodipine Besylate 10 mg 01/10/20 09:00 01/13/20 12:03 Norvasc PO 10 mg DAILY TITA Administration Aripiprazole 2 mg 01/09/20 09:00 01/13/20 12:03 Abilify PO 2 mg DAILY TITA Administration Aspirin 325 mg 01/13/20 09:00 01/13/20 12:03 Ecotrin PO 325 mg DAILY TITA Administration Bupropion HCl 300 mg 01/13/20 09:00 01/13/20 12:02 Wellbutrin Xl PO 300 mg DAILY TITA Administration Fluoxetine HCl 40 mg 01/09/20 09:00 01/13/20 12:03 Prozac PO 40 mg QAM TITA Administration Haloperidol Lactate 2 mg 01/10/20 17:50 01/11/20 18:45 Haldol SLOW IVP 2 mg Q4H PRN Administration Agitation Heparin Sodium (Porcine) 5,000 units 01/08/20 21:00 01/13/20 09:06 Heparin SC 5,000 units BID TITA Administration Hydralazine HCl 10 mg 01/08/20 18:40 01/10/20 05:02 Apresoline SLOW IVP 10 mg Q4H PRN Administration SBP Greater Than 180 Dextrose/Lactated Ringer's 1,000 mls @ 100 mls/hr 01/12/20 09:30 01/13/20 12: 19 D5 Lr IV Not Given .Q10H [facility] Insulin Human Lispro 0 units 01/08/20 17:27 01/12/20 17:03 Humalog SC 2 unit .MILD SLIDING SCALE PRN Administration Mild Correctional Scale Labetalol HCl 10 mg 01/09/20 12:04 01/10/20 05:58 Normodyne SLOW IVP 10 ml Q4H PRN Administration SBP Greater Than 180 Metoprolol Tartrate 5 mg 01/11/20 18:00 01/13/20 12:19 Lopressor IVP 5 mg Q6HR TITA Administration Mometasone Furoate/Formoterol Fumar 2 puff 01/09/20 06:30 01/13/20 07:04 Dulera 200 Mcg/5 Mcg Inhaler INH Not Given BID-RT TITA Pantoprazole Sodium 40 mg 01/09/20 09:00 01/13/20 12:03 Protonix PO 40 mg QAM TITA Administration Pregabalin 100 mg 01/09/20 21:00 01/12/20 20:11 Lyrica PO 100 mg HS TITA Administration Sodium Chloride 10 ml 01/08/20 17:27 01/10/20 21:55 Flush - Normal Saline IVF 10 ml PRN PRN Administration Saline Flush - Exam General Appearance: awake alert Eye: PERRL, anicteric sclera ENT: normocephalic atraumatic, no oropharyngeal lesions Neck: supple Heart: RRR Respiratory: CTAB Gastrointestinal: soft Extremities: no cyanosis Skin: normal turgor Neurological: cranial nerve grossly intact, normal sensation to touch, no weakness, no focal deficits, no new deficit Musculoskeletal: normal tone, normal strength, no muscle wasting Psychiatric: normal affect, normal behavior, A&O x 3, oriented to person, oriented to place, oriented to time Hosp A/P (1) Encephalopathy acute Code(s): G93.40 - ENCEPHALOPATHY, UNSPECIFIED Status: Acute (2) Chest pain Code(s): R07.9 - CHEST PAIN, UNSPECIFIED Status: Acute (3) Anemia of renal disease Code(s): D63.1 - ANEMIA IN CHRONIC KIDNEY DISEASE Status: Chronic (4) Asthma Code(s): J45.909 - UNSPECIFIED ASTHMA, UNCOMPLICATED Status: Chronic Qualifiers: Asthma complication type: uncomplicated (5) Depression Code(s): F32.9 - MAJOR DEPRESSIVE DISORDER, SINGLE EPISODE, UNSPECIFIED Status : Chronic (6) Diabetes Code(s): E11.9 - TYPE 2 DIABETES MELLITUS WITHOUT COMPLICATIONS Status: Chronic Qualifiers: Diabetes mellitus type: type 2 Diabetes mellitus complication status: with unspecified complications - Plan 69 year old consulted for altered mental status. Altered mental status most likely secondary to metabolic toxicity versus drug changes. Intranial process less likely due to negative imaging and EEG. MRI brain reviewed and was negative for acute intracranial pathology. EEG reviewed and was negative for seizure activity. Neurochecks every 4 hours. Continue home medications. Continue medical management per primary team. Plan discussed with the son in detail.
--- NOTE | 2020-01-13 15:22 | PRG ---
DATE OF SERVICE: SUBJECTIVE: Patient was seen and examined at bedside and overnight events noted. Patient denies any shortness of breath or chest pain or palpitation. No history of nausea or vomiting or diarrhea or fever or chills or cramps. OBJECTIVE: GENERAL: This is a well-built female, in no apparent distress. VITAL SIGNS: Temperature 97.6. Heart Rate 81. Respiratory rate 20. Blood pressure 122/57. HEENT: Atraumatic, normocephalic. Oral mucosa is moist. NECK: Supple. CARDIOVASCULAR: S1, S2 heard. Rate and rhythm regular. RESPIRATORY: Clear to auscultation. GASTROINTESTINAL: Abdomen is soft. MUSCULOSKELETAL: No tenderness. No edema. DERMATOLOGIC: No skin rash. NEUROLOGIC: Alert and awake and oriented x3. No focal neurologic deficits. Moving all the extremities. PSYCHIATRIC: Mood and affect normal. LABORATORY DATA: Not checked today. ASSESSMENT AND PLAN: 1. End-stage renal disease. Continue on dialysis on TTS as tolerated. 2. Hypertension. 3. Anemia. 4. . 5. Continue dialysis as tolerated on Monday, , and Monday. Job ID: [id number]
[2020-01-13] MEDS: HumaLOG 300 UNITS/3 ML VIAL SC PRN (17:16)
[2020-01-13] MEDS: Acetaminophen 325 MG TAB PO PRN (17:18)
[2020-01-13] MEDS: Pregabalin 50 MG CAP PO SCH (20:56)
--- NOTE | 2020-01-14 06:54 | PDOC.FM ---
- Subjective Subjective: Doing well this morning. Much more alert and oriented today. - Objective MAR Reviewed: Yes Vital Signs & Weight: Vital Signs (12 hours) Temp Pulse Resp BP BP Pulse Ox 01/14/20 04:00 98.5 F 88 18 127/58 L 95 01/14/20 00:00 98.2 F 87 18 147/89 H 99 01/13/20 20:00 98.5 F 90 18 127/72 99 Weight Admit Weight 82.554 kg Weight 82.554 kg I&O: 01/12/20 01/13/20 01/14/20 06:59 06:59 06:59 Intake Total 0 2094 2099 Output Total 0 0 Balance 0 2094 2099 Result Diagrams: 01/14/20 09:34 01/14/20 09:34 Phys Exam - Physical Examination Constitutional: NAD HEENT: moist MMs Neck: supple, full ROM Respiratory: no wheezing, no rales, no rhonchi, clear to auscultation bilateral Cardiovascular: RRR Gastrointestinal: soft, non-tender Musculoskeletal: no edema, pulses present Neurological: moves all 4 limbs Psychiatric: normal affect, A&O x 3 Skin: no rash, normal turgor Dx/Plan (1) Encephalopathy acute Code(s): G93.40 - ENCEPHALOPATHY, UNSPECIFIED Status: Acute (2) ESRD needing dialysis Code(s): N18.6 - END STAGE RENAL DISEASE Status: Acute (3) Anemia of renal disease Code(s): D63.1 - ANEMIA IN CHRONIC KIDNEY DISEASE Status: Chronic (4) Asthma Code(s): J45.909 - UNSPECIFIED ASTHMA, UNCOMPLICATED Status: Chronic Qualifiers: Asthma complication type: uncomplicated (5) Depression Code(s): F32.9 - MAJOR DEPRESSIVE DISORDER, SINGLE EPISODE, UNSPECIFIED Status : Chronic (6) Diabetes Code(s): E11.9 - TYPE 2 DIABETES MELLITUS WITHOUT COMPLICATIONS Status: Chronic Qualifiers: Diabetes mellitus type: type 2 Diabetes mellitus complication status: with unspecified complications (7) Hypertension Code(s): I10 - ESSENTIAL (PRIMARY) HYPERTENSION Status: Chronic (8) Neuropathy Code(s): G62.9 - POLYNEUROPATHY, UNSPECIFIED Status: Chronic - Plan Plan: Encephalopathy 2/2 Hypertensive Emergency vs CVA vs Drug Toxicity, resolved - continue dialysis, due today - MRI showed no acute findings - ECHO WNL - COVID test NEGATIVE 01/08/2020. - Awaiting placement at rehab. Type 2 NSTEMI - recent LHC without significant blockages - cardiology following and not recommending any intervention at this time ESRD on dialysis - continue dialysis T, , . - With encephalopathy will give prn Haldol for dialysis - Nephrology consulted (Dr. De La Fuente), following CAD - ASA daily. DM A1c 5.5 - SS insulin HTN - Restarted home amlodipine - Will monitor pressures today and consider adding second oral therapy. Asthma - Continue home meds. Duoneb PRN for now. Depression - Continue home meds Neuropathy - Continue home meds. Code: DNR - confirmed with family PPx: protonix, heparin Dispo: stroke, inpatient. LOS > 48hrs. Stable for d/c if approved for rehab. Diet: CC, pureed texture. [place] thickened liquids. Addendum - Attending - Attending Attestation Date/Time: 01/14/20 0001 I personally evaluated the patient and discussed the management with Dr. Mckeon. I agree with the History, Examination, Assessment and Plan documented above with any addition or exceptions noted below. Patient feeling well, mentation continues to be near baseline. Working on BP control and placement.
[2020-01-14] MEDS: Mometasone 200 MCG/Formoterol 5 MCG 120 PUFF INHALER INH SCH ×2 (07:58→19:09)
[2020-01-14 10:13] LABS: Hemoglobin 13.4 g/dL (12.0-16.0); Mean Corpuscular HGB CONC 33.6 g/dL (32.0-36.0); Mean Corpuscular Hemoglobin 31.8 pg (27.0-31.0); Mean Corpuscular Volume 94.6 fL (78.0-98.0); Mean Platelet Volume 10.2 fL (7.4-10.4); Platelet Count 206 thou/uL (130-400); RBC Distribution Width 12.9 % (11.5-14.5); Red Blood Cell (RBC) Count 4.21 mill/uL (4.20-5.40); White Blood Cell (WBC) Count 8.9 thou/uL (4.8-10.8)
[2020-01-14 10:16] LABS: Anion Gap 17 mmol/L (10-20); BUN (Urea Nitrogen) 75 mg/dL (9.8-20.1); Calc. Creatinine Clearance 9 mL/min (70-130); Calcium 9.5 mg/dL (7.8-10.44); Carbon Dioxide 26 mmol/L (23-31); Chloride 98 mmol/L (98-107); Estimated GFR-MDRD 6; Glucose 118 mg/dL (80-115); Potassium 4.1 mmol/L (3.5-5.1); Sodium 137 mmol/L (136-145)
[2020-01-14 11:09] LABS: Band 1 % (5-11); Eosinophils 3 % (0-10); Lymphocytes 35 % (21-51); MDiff Complete? YES; Monocytes 3 % (0-10); Neutrophil 57 % (42-75); Platelet Morphology Comment Appears Adequate; RBC Morphology Normal; Reactive Lymphocytes 1 % (0-10)
--- NOTE | 2020-01-14 12:59 | PDOC.HOSPP ---
- Subjective Encounter Date: 01/13/20 Subjective: NEUROLOGY PROGRESS NOTE Patient clinically improved and alert and oriented x 3 . Undergoing dialysis. Daughter at bedside. - Objective Vital Signs & Weight: Vital Signs (12 hours) Temp Pulse Resp BP BP Pulse Ox 01/14/20 12:35 98.3 F 107 H 16 163/43 H 98 01/14/20 08:13 97 01/14/20 07:43 97.9 F 91 17 132/65 97 01/14/20 04:00 98.5 F 88 18 127/58 L 95 Weight Admit Weight 182 lb Weight 182 lb I&O: 01/13/20 01/14/20 01/15/20 06:59 06:59 06:59 Intake Total 2094 2099 Output Total 0 0 Balance 2094 2099 Result Diagrams: 01/14/20 09:34 01/14/20 09:34 Additional Labs: Accuchecks 01/14/20 01/14/20 01/13/20 10:38 05:48 21:04 POC Glucose 111 H 123 H 118 H 01/13/20 16:31 POC Glucose 192 H Radiology Reviewed by me: Yes EKG Reviewed by me: Yes Hospitalist ROS - Review of Systems Constitutional: denies: fever, chills, sweats, weakness, malaise, other Eyes: denies: pain, vision change, conjunctivae inflammation, eyelid inflammation, redness, other ENT: denies: ear pain, ear discharge, nose pain, nose discharge, nose congestion , mouth pain, mouth swelling, throat pain, throat swelling, other Respiratory: denies: cough, dry, shortness of breath, hemoptysis, SOB with excertion, pleuritic pain, sputum, wheezing, other Cardiovascular: denies: chest pain, palpitations, orthopnea, paroxysmal noc. dyspnea, edema, light headedness, other Genitourinary: denies: dysuria, frequency, incontinence, hematuria, retention, other Musculoskeletal: denies: neck pain, shoulder pain, arm pain, back pain, hand pain, leg pain, foot pain, other Skin: denies: rash, lesions, demi, bruising, other Neurological: reports: other (intermittent agitation) - Medication Medications: Active Medications Generic Name Dose Route Start Last Admin Trade Name Freq PRN Reason Stop Dose Admin Acetaminophen 650 mg 01/08/20 17:27 01/13/20 17:18 Tylenol PO 650 mg Q4H PRN Administration Headache/Fever/Mild Pain (1-3) Amlodipine Besylate 10 mg 01/10/20 09:00 01/13/20 12:03 Norvasc PO 10 mg DAILY TITA Administration Aripiprazole 2 mg 01/09/20 09:00 01/13/20 12:03 Abilify PO 2 mg DAILY TITA Administration Aspirin 325 mg 01/13/20 09:00 01/13/20 12:03 Ecotrin PO 325 mg DAILY TITA Administration Bupropion HCl 300 mg 01/13/20 09:00 01/13/20 12:02 Wellbutrin Xl PO 300 mg DAILY TITA Administration Fluoxetine HCl 40 mg 01/09/20 09:00 01/13/20 12:03 Prozac PO 40 mg QAM TITA Administration Haloperidol Lactate 2 mg 01/10/20 17:50 01/11/20 18:45 Haldol SLOW IVP 2 mg Q4H PRN Administration Agitation Heparin Sodium (Porcine) 5,000 units 01/08/20 21:00 01/13/20 20:57 Heparin SC 5,000 units BID TITA Administration Insulin Human Lispro 0 units 01/08/20 17:27 01/13/20 17:16 Humalog SC 2 unit .MILD SLIDING SCALE PRN Administration Mild Correctional Scale Mometasone Furoate/Formoterol Fumar 2 puff 01/09/20 06:30 01/14/20 07:58 Dulera 200 Mcg/5 Mcg Inhaler INH 2 puff BID-RT TITA Administration Pantoprazole Sodium 40 mg 01/09/20 09:00 01/13/20 12:03 Protonix PO 40 mg QAM TITA Administration Pregabalin 100 mg 01/09/20 21:00 01/13/20 20:56 Lyrica PO 100 mg HS TITA Administration Sodium Chloride 10 ml 01/08/20 17:27 01/10/20 21:55 Flush - Normal Saline IVF 10 ml PRN PRN Administration Saline Flush - Exam General Appearance: awake alert Eye: PERRL ENT: normocephalic atraumatic Neck: supple Heart: RRR Respiratory: CTAB Gastrointestinal: soft Extremities: no cyanosis Neurological: cranial nerve grossly intact, normal sensation to touch, no focal deficits, no new deficit Musculoskeletal: normal tone, normal strength, no muscle wasting Psychiatric: normal affect, normal behavior, A&O x 3, oriented to person, oriented to place, oriented to time Hosp A/P (1) Encephalopathy acute Code(s): G93.40 - ENCEPHALOPATHY, UNSPECIFIED Status: Acute (2) Chest pain Code(s): R07.9 - CHEST PAIN, UNSPECIFIED Status: Acute (3) Anemia of renal disease Code(s): D63.1 - ANEMIA IN CHRONIC KIDNEY DISEASE Status: Chronic (4) Asthma Code(s): J45.909 - UNSPECIFIED ASTHMA, UNCOMPLICATED Status: Chronic Qualifiers: Asthma complication type: uncomplicated (5) Depression Code(s): F32.9 - MAJOR DEPRESSIVE DISORDER, SINGLE EPISODE, UNSPECIFIED Status : Chronic (6) Diabetes Code(s): E11.9 - TYPE 2 DIABETES MELLITUS WITHOUT COMPLICATIONS Status: Chronic Qualifiers: Diabetes mellitus type: type 2 Diabetes mellitus complication status: with unspecified complications - Plan plan discussed w/ family, PT/OT, speech therapy, DVT proph w/SCDs 69 year old consulted for altered mental status. Altered mental status most likely secondary to metabolic toxicity versus drug changes. Clinically improved and undergoing dialysis. MRI brain reviewed and was negative for acute intracranial pathology. EEG reviewed and was negative for seizure activity. Neurochecks every 4 hours. Continue home medications. Continue medical management per primary team. Case management on board for discharge planning Plan discussed with the daughter in detail.
[2020-01-14] MEDS: Bupropion 150 MG XL TAB PO SCH (13:02)
[2020-01-14] MEDS: Heparin 5,000 UNITS/ML VIAL SC SCH (13:02)
[2020-01-14] MEDS: Aspirin 325 mg Enteric Coated Tablet PO SCH (13:03)
[2020-01-14] MEDS: FLUoxetine HCl 20 MG CAP PO SCH (13:04)
[2020-01-14] MEDS: Aripiprazole 2 MG TAB PO SCH (13:04)
[2020-01-14] MEDS: Amlodipine 10 MG TAB PO SCH (13:05)
[2020-01-14 15:06] VITALS: TEMP 98.5
[2020-01-14 16:43] VITALS: BP 130/58
--- NOTE | 2020-01-14 18:44 | PRG ---
DATE OF SERVICE: 01/14/2020 SUBJECTIVE: The patient was seen and examined at bedside and overnight events noted. The patient denies any shortness of breath or chest pain or palpitation. No history of nausea or vomiting or diarrhea or fever or chills or cramps. OBJECTIVE: GENERAL: This is a well-built female, in no apparent distress. VITAL SIGNS: Temperature 98.5. Heart rate 78. Respiratory rate 18. Blood pressure 130/70. HEENT: Atraumatic, normocephalic. Oral mucosa is moist. NECK: Supple. CARDIOVASCULAR: S1, S2 heard. Rate and rhythm regular. RESPIRATORY: Clear to auscultation. GASTROINTESTINAL: Abdomen is soft. MUSCULOSKELETAL: No tenderness. No edema. DERMATOLOGIC: No skin rash. NEUROLOGIC: Alert and awake and oriented x3. No focal neurologic deficits. Moving all the extremities. PSYCHIATRIC: Mood and affect normal. LABORATORY DATA: Potassium is 4.1, BUN is 75, creatinine is 7.9. ASSESSMENT AND PLAN: 1. End-stage renal disease. Continue on dialysis Monday, , Monday as tolerated. 2. Hypertension. 3. Anemia of chronic disease. 4. Edema, controlled. Continue dialysis as tolerated. Job ID: [id number]
--- NOTE | 2020-01-15 14:12 | DIS ---
DATE OF ADMISSION: 01/08/2020 DATE OF DISCHARGE: 01/14/2020 RESIDENT: Claudia Mckeon MD ADMITTING ATTENDING: Dr. Johnathon Phipps. DISCHARGE ATTENDING: Dr. Aquiles Patterson. CONSULTS: 1. Cardiology, Dr. Ventura. 2. Nephrology, Dr. Sanches. 3. Neurology, Dr. Avalos. 4. Anesthesiology. PROCEDURES: Echocardiogram: Ejection fraction estimated greater than 60% to 65%, diastolic dysfunction noted. MRI under anesthesia, which was read as absent restricted diffusion, no acute infarct. Dialysis per usual schedule. PRIMARY DIAGNOSIS: Acute encephalopathy. SECONDARY DIAGNOSES: Elevated troponin; end-stage renal disease, on dialysis, coronary artery disease, diabetes, hypertension, asthma, depression, neuropathy. DISCHARGE MEDICATIONS: Albuterol, Abilify 2 mg, bupropion 300 mg daily, Klonopin 0.5 mg b.i.d., clonidine 0.3 mg t.i.d., fluoxetine 40 mg daily, Advair, Protonix 40 mg daily, Lyrica 100 mg nightly, amlodipine 10 mg daily, aspirin 325 mg daily, Haldol 2 mg p.r.n. DISCONTINUED MEDICATIONS: None. HISTORY OF PRESENT ILLNESS/HOSPITAL COURSE: Ms. Briggs is a 69-year-old female who presented with acute mental status changes. She has last seen by the family member one day prior to admission and was normal. The patient lives independently down the street from the family members. It was noted that she missed her normally scheduled dialysis on Monday. Upon arrival, her blood pressures were greater than 200 systolic. The differential diagnosis for her acute mental status changes included hypertensive urgency, uremia, TIA versus CVA, adverse drug reaction. The patient had been prescribed baclofen the Monday prior to admission for a fall. Over the course of her hospitalization, her mental status drastically improved. Her CT head was negative. Her MRI of her brain was negative. She resumed dialysis while inpatient, and on the day of discharge, she was alert and oriented x3. She was discharged to inpatient rehab for extensive physical therapy before being discharged back to live independently. DISPOSITION: Stable. DISCHARGE INSTRUCTIONS: LOCATION: Inpatient rehab. DIET: Heart healthy. ACTIVITY: Ad janice. FOLLOWUP: Follow up with primary care physician after discharge from rehab. Job ID: [id number]
--- NOTE | 2020-01-16 09:59 | PQF ---
MICHAEL DE DIOS REJEESH MD [id number] [facility]-247 [id number] CLINICAL DOCUMENTATION CLARIFICATION FORM: POST DISCHARGE Addendum to original discharge summary date: ____ Late entry note date: __ DATE: 01/16/2020 ATTN: CELENA CHOWDARY MD Please exercise your independent, professional judgment in responding to the clarification form. Clinical indicators are provided on the bottom of this form for your review Please check appropriate box(s): [ ] Encephalopathy: Type: [ ] Acute [ ] Subacute [ ] Chronic Etiology: [ ] Hypertensive [ ] Metabolic [ ] Toxic [ ] Hepatic with Coma [ ] Hepatic w/o Coma [ ] Hypoxic [ ] Septic [ ] Drug induced: [ ] Unspecified [ ] in the setting of underlying dementia [ ] Other (please specify) [ ] Transient Alteration of Awareness [ ] Other diagnosis [ ] Unable to determine For continuity of documentation, please document condition throughout progress notes and discharge summary. Thank You. CLINICAL INDICATORS - SIGNS / SYMPTOMS / LABS - Altered mental status most likely secondary to metabolic toxicity versus drug changes-Hospital PN, 01/13, Apoorva Avalos MD - Encephalopathy Acute- -Hospital PN, 01/13, Apoorva Avalos MD - Encephalopathy, likely 2/2 Uremia- [facility] H&P, 01/07, Raysa Limon MD - ESRD on dialysis, Missed dialysis on 01/05, BUN/Cr: 64:8- -Hospital PN, 01/10 , Nini Houser MD RISK FACTORS - ESRD on dialysis- -Hospital PN, 01/13, Apoorva Avalos MD - Hypertensive emergency - -Hospital PN, 01/13, Apoorva Avalos MD TREATMENTS: - Sodium chloride.IV- SEP, 01/07 - Lactated Ringer's.IV- MAR,01/07 [employer] Technical [employer] Winform Viewer (This form is maintained as a part of the permanent medical record) 2014 [employer], [employer]. All Rights Reserved [email or web address]
== END 2020-01-14 19:41 | DRG 280 ==
LOC: ERS 11:17 → 2SW 16:15 → 2SE 01-09 18:27
PROVIDERS: ADMIT Family Medicine; ATTEND Family Medicine
PROC: 5A1D70Z Performance of Urinary Filtration, Intermittent, Less than 6 Hours Per Day (ICD-10-PCS; principal; 2020-01-11)
PROC: 5A1D70Z Performance of Urinary Filtration, Intermittent, Less than 6 Hours Per Day (ICD-10-PCS; 2020-01-14)
DX: I16.1 Hypertensive emergency (principal); N18.6 End stage renal disease; I21.A1 Myocardial infarction type 2; G93.41 Metabolic encephalopathy; I12.0 Hypertensive chronic kidney disease with stage 5 chronic kidney disease or end stage renal disease; Z66 Do not resuscitate; Z20.828 Contact with and (suspected) exposure to other viral communicable diseases; Z51.5 Encounter for palliative care; F32.9 Major depressive disorder, single episode, unspecified; E11.40 Type 2 diabetes mellitus with diabetic neuropathy, unspecified; D63.1 Anemia in chronic kidney disease; J45.909 Unspecified asthma, uncomplicated; I25.10 Atherosclerotic heart disease of native coronary artery without angina pectoris; E11.22 Type 2 diabetes mellitus with diabetic chronic kidney disease; Z90.710 Acquired absence of both cervix and uterus; Z79.4 Long term (current) use of insulin
CPT/HCPCS: 36415; 36416; 51702; 70450; 70551; 71045; 80048; 80053; 80061; 80306; 80307; 81003; 81015; 82553; 83036; 84484; 85007; 85025; 85027; 87340; 87635; 90935; 93005; 93306; 95712; 95819; 95957; 96372; C9113; G0257; J0360; J1200; J1630; J1644; J2001; J2060; J2250; J2360; J2704; J3010; S0028; U0003

== ENCOUNTER 2020-03-17 08:40 | Observation (INO) | payer MEDICARE, MEDICAID ==
[2020-03-17] MEDS ORDERED: Regadenoson 0.4 MG/5 ML SYRINGE ONE (09:01)
[2020-03-17 09:17] LABS: #Basophils 0.1 thou/uL (0.0-0.2); #Eosinphils 0.4 thou/uL (0.0-0.7); #Lymphocytes 2.5 thou/uL (1.20-3.40); #Monocytes 0.8 thou/uL (0.11-0.59); #Neutrophils 4.5 thou/uL (1.40-6.50); %Basophils 0.7 % (0.0-1.0); %Eosinophils 4.7 % (0.0-10.0); %Monocytes 9.1 % (0.0-10.0); %Neutrophils 54.4 % (42.0-75.0); Hemoglobin 13.5 g/dL (12.0-16.0); Mean Corpuscular HGB CONC 32.2 g/dL (32.0-36.0); Mean Corpuscular Hemoglobin 32.1 pg (27.0-31.0); Mean Corpuscular Volume 99.6 fL (78.0-98.0); Mean Platelet Volume 8.8 fL (7.4-10.4); Platelet Count 278 thou/uL (130-400); RBC Distribution Width 14.1 % (11.5-14.5); Red Blood Cell (RBC) Count 4.21 mill/uL (4.20-5.40); White Blood Cell (WBC) Count 8.2 thou/uL (4.8-10.8)
--- NOTE | 2020-03-17 09:36 | RAD ---
XR Chest 1 View Portable HISTORY: Chest pain COMPARISON: 01/08/2020 FINDINGS: The heart is enlarged. The aorta is tortuous. There is continued elevation the right hemidi aphragm. No lobar consolidation, pneumothoraces, lalito pulmonary edema or pleural effusions are seen. IMPRESSION: No radiographic evidence of acute cardiopulmonary process.
[2020-03-17 10:02] LABS: CKMB 1.7 ng/mL (0-6.6)
[2020-03-17 10:03] LABS: ALT (SGPT) 17 U/L (8-55); AST (SGOT) 20 U/L (5-34); Albumin 4.5 g/dL (3.4-4.8); Alkaline Phosphatase 83 U/L (40-110); Anion Gap 17 mmol/L (10-20); BUN (Urea Nitrogen) 29 mg/dL (9.8-20.1); Bilirubin, Total 0.5 mg/dL (0.2-1.2); CK (CPK) 52 U/L (29-168); Calc. Creatinine Clearance 0 mL/min (70-130); Calcium 9.9 mg/dL (7.8-10.44); Carbon Dioxide 30 mmol/L (23-31); Chloride 97 mmol/L (98-107); Estimated GFR-MDRD 10; Globulin 3.3 g/dL (2.4-3.5); Glucose 123 mg/dL (80-115); Lipase 40 U/L (8-78); Protein, Total 7.8 g/dL (6.0-8.3); Sodium 140 mmol/L (136-145)
--- NOTE | 2020-03-17 10:40 | PDOC.HHP ---
Hospitalist HPI - History of Present Illness Chest pain History of Present Illness: PCP: Dr. Salazar The patient is a 69-year-old female with a past medical history significant for CAD, hypertension, diabetes type 2 [id number], asthma, ESRD (//MON ) followed by Dr. Sanches that presents to the ER via EMS for the above complaint. The patient reported the development of chest pain near the end of her hemodialysis session this morning. Pain was located substernally, described as pressure, 8/10 on the pain scale, non-radiating, exacerbated by nothing and relieved by sublingual nitro x2. Patient reports that she has never had pain like this before. She denies any associated heart palpitations, lower extremity swelling, shortness of breath, abdominal pain, vomiting, and diarrhea. She makes urine, and denies any urinary symptoms. She denies fever or chills. She has no history of DVT or PE. She denies any illicit drug use. She has an extensive family history of cardiac disease. ED Course: EMS found the patient to be hypertensive with a blood pressure of 203/83, normal pulse, normal respirations, normal SPO2 saturation, afebrile. Administered sublingual nitro x2 with resolution of symptoms. ER: VITAL SIGNS MonMar 17, 2020 08:41 JOYCELYN Santizo Cullen BP: 188/89, Pulse: 92, Resp: 18, Temp: 97.6 (Oral), Pain: 2, O2 sat: 100, Time: 03/17/2020 08:41. EKG normal sinus rhythm, LVH, no ST elevations Chest x-ray negative for any acute cardiopulmonary process Troponin 0.044, BNP 331.9 Piter Aspirin 324 mg Oral Acknowledged 10:33 03/17/2020 Hospitalist ROS - Review of Systems All other systems reviewed; all pertinent +/- noted in HPI/Subj - Medication Medications: Amlodipine 10mg po daily? cloNIDine HCl MonMar 17, 2020 09:18 JOYCELYN Cheek Sarah TABLET : Strength - 0.3 mg : ORAL Patient Dose: 1 tab(s) Oral 3 times a day. Advair Diskus MonMar 17, 2020 09:18 JOYCELYN Cheek Sarah BLISTER, WITH INHALATION DEVICE : Strength - 250 mcg-50 mcg/Dose : INHALATION Patient Dose: 1 puff(s) Inhaler once a day (in the morning). Wellbutrin XL MonMar 17, 2020 09:18 JOYCELYN Cheek Sarah TABLET, EXTENDED RELEASE 24 HR : Strength - 300 mg : ORAL Patient Dose: 1 tab(s) Oral once a day (in the morning). pantoprazole oral MonMar 17, 2020 09:18 JOYCELYN Cheek Sarah TABLET, DELAYED RELEASE (ENTERIC COATED) : Strength - 40 mg : ORAL Patient Dose: 1 tab(s) Oral once a day (in the morning). FLUoxetine MonMar 17, 2020 09:18 JOYCELYN Cheek Sarah CAPSULE : Strength - 20 mg : ORAL Patient Dose: 2 tab(s) Oral once a day. Ventolin HFA MonMar 17, 2020 09:18 JOYCELYN Cheek Sarah HFA aerosol inhaler : Strength - 90 mcg : INHALATION Patient Dose: 2 puff(s) Inhaler every 6 hours PRN. clonazePAM MonMar 17, 2020 09:18 JOYCELYN Cheek Sarah tablet : Strength - 0.5 mg : ORAL Patient Dose: 1 tab(s) Oral 2 times a day. ARIPiprazole MonMar 17, 2020 09:18 JOYCELYN Cheek Sarah tablet : Strength - 2 mg : ORAL Patient Dose: 2 mg Oral once a day. pregabalin (bulk) MonMar 17, 2020 09:18 JOYCELYN Cheek Sarah powder : Strength - 100 % : MISCELLANEOUS Patient Dose: UNK. Lyrica MonMar 17, 2020 09:20 JOYCELYN Cheek Sarah capsule : Strength - 100 mg : ORAL Patient Dose: Oral once a day. aspirin oral MonMar 17, 2020 09:21 JOYCELYN Cheek Sarah tablet : Strength - 81 mg : ORAL Patient Dose: once a day Allergies: No Known Allergies (Unconfirmed), No Known Drug Allergies Hospitalist History - Past Medical History Source: patient, RN notes reviewed Other Medical History: MEDICAL HISTORY ESRD, (DIALYSIS T/R/Sat), neuropathy, diabetes, Type II- no longer taking any medications for DM, hypertension. Asthma. FEMALE SURGICAL HISTORY fistula placement in both arms- FISTULA IN LUE IS THE ONE THAT IS USED, carpal tunnel right hand, right foot, partial hysterectomy. PSYCHIATRIC HISTORY Psychiatric history includes, depression. SOCIAL HISTORY Patient denies alcohol use, Patient denies drug use, Patient has no smoking history, Lives at home, alone. FAMILY HISTORY Contributory for cardiac disease. - Exam General Appearance: NAD General - other findings: drowsy, non toxic appearing Eye: PERRL, anicteric sclera ENT: normocephalic atraumatic Neck: supple, symmetric, no JVD Heart: RRR, no murmur, no gallops, no rubs, normal peripheral pulses Respiratory: CTAB, no wheezes, no rales, no ronchi, normal chest expansion, no tachypnea Gastrointestinal: soft, non-tender, normal bowel sounds, no guarding, no rigidity Extremities: no clubbing, no edema Skin: no rashes Neurological: normal sensation to touch, no weakness, no focal deficits Psychiatric: normal affect, A&O x 3 Hospitalist Results - Labs Result Diagrams: 03/17/20 09:01 03/17/20 09:01 Lab results: WBC 8.2 thou/uL (4.8-10.8) 03/17/20 09:01 Hgb 13.5 g/dL (12.0-16.0) 03/17/20 09:01 Hct 41.9 % (36.0-47.0) 03/17/20 09: MCV 99.6 fL (78.0-98.0) H 03/17/20 09:01 Plt Count 278 thou/uL (130-400) 03/17/20 09:01 Neutrophils % 54.4 % (42.0-75.0) 03/17/20 09: Sodium 140 mmol/L (136-145) 03/17/20 09:01 Potassium 4.0 mmol/L (3.5-5.1) 03/17/20 09: Chloride 97 mmol/L (98-107) L 03/17/20 09:01 Carbon Dioxide 30 mmol/L (23-31) 03/17/20 09:01 BUN 29 mg/dL (9.8-20.1) H 03/17/20 09:01 Creatinine 5.26 mg/dL (0.6-1.1) H 03/17/20 09:01 Glucose 123 mg/dL (80-115) H 03/17/20 09:01 Calcium 9.9 mg/dL (7.8-10.44) 03/17/20 09:01 Total Bilirubin 0.5 mg/dL (0.2-1.2) 03/17/20 09:01 AST 20 U/L (5-34) 03/17/20 09:01 ALT 17 U/L (8-55) 03/17/20 09:01 Alkaline Phosphatase 83 U/L (40-110) 03/17/20 09:01 Creatine Kinase 52 U/L (29-168) 03/17/20 09: CK-MB (CK-2) 1.7 ng/mL (0-6.6) 03/17/20 09: Troponin I 0.044 ng/mL (< 0.028) H 03/17/20 09: B-Natriuretic Peptide 331.9 pg/mL (0-100) H 03/17/20 09: Serum Total Protein 7.8 g/dL (6.0-8.3) 03/17/20 09: Albumin 4.5 g/dL (3.4-4.8) 03/17/20: Lipase 40 U/L (8-78) 03/17/20 09:01 - EKG Interpretation EK lead EKG interpreted by Emergency Department Physician at time of study, Heart rate 88, normal sinus rhythm, LVH changes, left axis deviation - Radiology Interpretation Chest x-ray Status: report reviewed by me Additional Comment: no acute cardiopulmonary process. Hospitalist H&P A/P - Problem (1) Chest pain Code(s): R07.9 - CHEST PAIN, UNSPECIFIED Status: Acute Assessment and Plan: We will admit the patient to the telemetry floor, observation status. Expected length of stay less than 2 midnights. The patient presented hypertensive, normal pulse, normal respirations, afebrile. Chest pain resolved with sublingual nitro x2. EKG normal sinus rhythm, LVH, no ST elevations. Chest x- ray negative for any acute process. Troponin 0.044, BNP 331.9 (was 462 on 09/11) . Given aspirin in the ER. Heart score 6. Wells PE score 0. Will trend troponins, check TSH, mag, UA. Patient had a fasting lipid profile in December, which was unremarkable. Patient had an echocardiogram in December which showed EF of 60 to 65%, some diastolic dysfunction, mild mitral and pulmonic regurgitation , trace tricuspid regurgitation, left ventricle was normal size and function. Will order nuc med stress test. N.p.o. after midnight. (2) ESRD (end stage renal disease) on dialysis Code(s): N18.6 - END STAGE RENAL DISEASE; Z99.2 - DEPENDENCE ON RENAL DIALYSIS Status: Chronic Assessment and Plan: Had hemodialysis today. Reports 3 L taken off at todays session. Scheduled Monday, , Saturdays. Followed by Dr. Sanches. Has bilateral upper extremity fistulas, left upper extremity fistula is the operational fistula at this time. (3) DMII (diabetes mellitus, type 2) Status: Chronic Assessment and Plan: Patient does not take any medications for her diabetes. Well-controlled per patient. Will perform Accu-Cheks AC at bedtime. Added mild sliding scale. (4) HTN (hypertension) Code(s): I10 - ESSENTIAL (PRIMARY) HYPERTENSION Status: Chronic Assessment and Plan: Patient presented hypertensive with EMS and in the ER. We will add Nitropaste scheduled. Will restart patient's clonidine home dose. We will continue to monitor blood pressure. - Plan Plan: Consult walking program Heparin for DVT prophylaxis. Full code. Surrogate decision-maker is your Wes, her sister, . Discussed case with Dr. Espinoza.
[2020-03-17] MEDS ORDERED: Aspirin 325 MG TAB ONE (10:52)
[2020-03-17] MEDS ORDERED: Nitroglycerin 0.4 MG TAB (25 Tab Bottle) PO PRN (11:01)
[2020-03-17] MEDS ORDERED: HumaLOG 300 UNITS/3 ML VIAL SC PRN ×2 (11:04)
[2020-03-17] MEDS ORDERED: Dextrose 5% in Water 1,000 ML IV PRN (11:04)
[2020-03-17] MEDS ORDERED: Dextrose 50% Abboject 50 ML SYRINGE SLOW IVP PRN (11:04)
[2020-03-17] MEDS ORDERED: Calcium Carbonate 500 MG ChewTAB PO PRN (11:09)
[2020-03-17] MEDS ORDERED: Ondansetron ODT 4 MG TAB PO PRN (11:09)
[2020-03-17] MEDS ORDERED: Acetaminophen 650 MG Suppository PR PRN (11:09)
[2020-03-17] MEDS ORDERED: Acetaminophen 325 MG TAB PO PRN (11:09)
[2020-03-17] MEDS ORDERED: Ondansetron PF 4 MG/2 ML Vial IVP PRN (11:09)
[2020-03-17] MEDS ORDERED: Senokot S 8.6-50 MG TAB PO PRN (11:09)
[2020-03-17 12:25] VITALS: BMI 32.8
[2020-03-17] MEDS: Nitroglycerin 2% Ointment 1 INCH/1 GM Packet TOP SCH (16:01)
[2020-03-17] MEDS: cloNIDine 0.3 MG TAB PO SCH ×2 (16:18→22:02)
--- NOTE | 2020-03-17 16:19 | CON ---
DATE OF CONSULTATION: REASON FOR CONSULTATION: End-stage renal disease, for maintenance hemodialysis. HISTORY OF PRESENT ILLNESS: This is a 69-year-old female, presented to the hospital with chest pain. The patient had dialysis denies any nausea, vomiting, or syncope. PAST MEDICAL HISTORY: Significant for hypertension, anemia, diabetes mellitus, asthma, AV fistula, tunneled dialysis catheter, partial hysterectomy. SOCIAL HISTORY: No alcohol or drug use. FAMILY HISTORY: Negative for ESRD. ALLERGIES: REVIEWED. HOME MEDICATIONS: List reviewed. HOSPITAL MEDICATIONS: List reviewed. REVIEW OF SYSTEMS: 15-point review of systems was performed, negative except for positives noted above. HEENT: Eyes intact, no diplopia. Ears: No hearing loss or earache. Nose: No discharge or bleeding. Chest: No cough or phlegm. Abdomen: No nausea or vomiting. Genitourinary: No hematuria. No Franco catheter. Musculoskeletal: No low back pain. No joint swelling or pain. Neurological: No syncope. No seizures. Skin: No complaints of rash or itching. Psychiatric: No depression. Constitutional: No weight loss or loss of appetite. PHYSICAL EXAMINATION: General: The patient is awake and alert. Vital Signs: Afebrile, pulse 75, breathing at 16, blood pressure 177/79. HEENT: Head normocephalic and atraumatic. Eyes intact, no ulcers. Nose intact, no ulcers. Ears intact, no ulcers. Neck: Supple. No JVD. Chest: Symmetrical and clear. Cardiovascular: Shows S1 and S2, no rub, no murmur. Gastrointestinal: Abdomen is soft, bowel sounds positive. Extremities: Show no edema or ulcers. Skin: Shows no rash or petechiae. Musculoskeletal: Shows no joint swelling or stiffness. Genitourinary: Shows no Franco or CVA tenderness. Neurologic: Motor intact. Cranial nerves intact. LABORATORY DATA: Reviewed. ASSESSMENT AND PLAN: 1. Stage 6 chronic kidney disease, plan dialysis tomorrow. 2. Hypertension, stable. 3. Anemia, stable. 4. Medication based on GFR, appropriate. Job ID: [id number]
[2020-03-17 18:24] LABS: CKMB 1.1 ng/mL (0-6.6)
[2020-03-17] MEDS: Mometasone 200 MCG/Formoterol 5 MCG 120 PUFF INHALER INH SCH (19:17)
[2020-03-17] MEDS ORDERED: FLUTICASONE INH SCH (21:00)
[2020-03-17] MEDS ORDERED: Non-Formulary Item 1 EACH (Pregabalin [Lyrica] 100 MG) PO SCH (21:00)
[2020-03-17] MEDS ORDERED: Pregabalin 50 MG CAP PO SCH (21:00)
[2020-03-17] MEDS ORDERED: SALMETEROL INH SCH (21:00)
[2020-03-17] MEDS: clonazePAM 0.5 MG TAB PO SCH (22:02)
[2020-03-17] MEDS: Heparin 5,000 UNITS/ML VIAL SC SCH (22:03)
[2020-03-18] MEDS: Nitroglycerin 2% Ointment 1 INCH/1 GM Packet TOP SCH ×2 (04:02→07:02)
[2020-03-18 04:58] LABS: #Eosinphils 0.4 thou/uL (0.0-0.7); #Lymphocytes 3.5 thou/uL (1.20-3.40); #Monocytes 0.7 thou/uL (0.11-0.59); #Neutrophils 3.3 thou/uL (1.40-6.50); %Basophils 0.5 % (0.0-1.0); %Eosinophils 5.6 % (0.0-10.0); %Lymphocytes 43.8 % (21.0-51.0); %Monocytes 8.8 % (0.0-10.0); %Neutrophils 41.3 % (42.0-75.0); Hemoglobin 11.7 g/dL (12.0-16.0); Mean Corpuscular HGB CONC 31.6 g/dL (32.0-36.0); Mean Corpuscular Hemoglobin 32.1 pg (27.0-31.0); Mean Platelet Volume 8.8 fL (7.4-10.4); Platelet Count 238 thou/uL (130-400); RBC Distribution Width 13.9 % (11.5-14.5); Red Blood Cell (RBC) Count 3.66 mill/uL (4.20-5.40)
[2020-03-18 05:19] LABS: Anion Gap 17 mmol/L (10-20); BUN (Urea Nitrogen) 40 mg/dL (9.8-20.1); Calc. Creatinine Clearance 10 mL/min (70-130); Calcium 9.2 mg/dL (7.8-10.44); Carbon Dioxide 25 mmol/L (23-31); Chloride 97 mmol/L (98-107); Estimated GFR-MDRD 8; Glucose 99 mg/dL (80-115); Potassium 4.1 mmol/L (3.5-5.1); Sodium 135 mmol/L (136-145)
[2020-03-18] MEDS: Mometasone 200 MCG/Formoterol 5 MCG 120 PUFF INHALER INH SCH (07:13)
[2020-03-18] MEDS ORDERED: FLUoxetine HCl 20 MG CAP PO SCH (09:00)
[2020-03-18] MEDS ORDERED: Non-Formulary Item 1 EACH (Bupropion Hcl [Bupropion Hcl Xl] 300 MG) PO SCH (09:00)
[2020-03-18] MEDS ORDERED: Bupropion 150 MG XL TAB PO SCH (09:00)
[2020-03-18] MEDS ORDERED: Aspirin 325 mg Enteric Coated Tablet PO SCH ×2 (09:00)
[2020-03-18] MEDS ORDERED: Non-Formulary Item 1 EACH (Fluoxetine Hcl [Fluoxetine Hcl] 40 MG) PO SCH (09:00)
[2020-03-18] MEDS ORDERED: Aripiprazole 2 MG TAB PO SCH (09:00)
--- NOTE | 2020-03-18 09:23 | PRG ---
DATE OF SERVICE: SUBJECTIVE: A 69-year-old female, being seen for end-stage kidney disease. The patient denied nausea, vomiting, or chest pain. OBJECTIVE: GENERAL: The patient is awake and alert. VITAL SIGNS: Afebrile, pulse 75, breathing at 16, blood pressure 133/57. HEENT: Head normocephalic and atraumatic. Eyes intact, no ulcers. Nose intact, no ulcers. Ears intact, no ulcers. Neck: Supple. No JVD. Chest: Symmetrical and clear. Cardiovascular: Shows S1 and S2, no rub, no murmur. Gastrointestinal: Abdomen is soft, bowel sounds positive. Extremities: Show no edema or ulcers. Skin: Shows no rash or petechiae. Musculoskeletal: Shows no joint swelling or stiffness. Genitourinary: Shows no Franco or CVA tenderness. Neurologic: Motor intact. Cranial nerves intact. LABORATORY DATA: Reviewed. ASSESSMENT AND PLAN: 1. Stage 6 chronic kidney disease, plan dialysis. 2. Hypertension. 3. Anemia, stable. 4. Medication based on GFR appropriate. Job ID: [id number]
[2020-03-18] MEDS: cloNIDine 0.3 MG TAB PO SCH (10:18)
[2020-03-18] MEDS: Heparin 5,000 UNITS/ML VIAL SC SCH (10:19)
[2020-03-18] MEDS: clonazePAM 0.5 MG TAB PO SCH (10:19)
[2020-03-18 11:11] VITALS: BP 117/52; TEMP 98.1
--- NOTE | 2020-03-18 11:16 | NM ---
NM Cardiac Stress W EF WF History: Chest pain Comparison: Nuclear medicine stress test 2015 Findings: Stress and rest performed after the intravenous administration of 28.4 and 33 mCi technetiu m 99m sestamibi, respectively. No scar or ischemia. Normal left ventricular wall motion. The calculated ejection fraction is 69%. Impression: Normal examination. No scar or ischemia.
--- NOTE | 2020-03-18 20:30 | DIS ---
DATE OF ADMISSION: 03/17/2020 DATE OF DISCHARGE: 03/18/2020 DISCHARGE DIAGNOSES: 1. Chest pain, atypical, noncardiac. 2. End-stage renal disease, on hemodialysis. 3. Diabetes mellitus type 2, diet managed. 4. Hypertension, stable. 5. Gastroesophageal reflux. CONSULTATION: Dr. Mariano with Nephrology Service. PERTINENT LABORATORY AND X-RAY FINDINGS: Creatinine ranged between 5.26 to 6.59, calcium 9.2. Troponin I ranged between 0.028 to 0.178. BNP 332, previously noted 462, on 09/03/2018. Lipase 40, TSH 1.58. CBC showed a hemoglobin ranged between 11.7 to 13.5, MCV ranged between 100 to 102. Portable chest x-ray dated 03/17/2020, showed no acute cardiopulmonary process. Cardiolite stress test dated 03/17/2020, showed no evidence of reversible or fixed ischemia with calculated ejection fraction of 69%. HOSPITAL COURSE: The patient was observed on the telemetry unit after initially presenting with chest pain in the context of hypertension, diabetes mellitus type 2, and end-stage renal disease. The patient underwent serial cardiac enzymes, which were mildly elevated and was also noted hypertensive with initial systolics over 200 in the emergency room. The patient received sublingual nitroglycerin and was evaluated and deemed appropriate to proceed with Cardiolite stress testing. The patient underwent Cardiolite stress testing using a two-day protocol showing no evidence of reversible or fixed ischemia with calculated ejection fraction of 69%. Telemetry monitoring showed no evidence of acute arrhythmia or dysrhythmia and the patient remained clinically stable during the hospital course. The patient did receive hemodialysis during her hospital course, tolerating without difficulty. Overall, the patient has remained clinically stable and vital signs remained stable. I have examined the patient at the time of discharge and discussed followup instructions. The patient verbalizes understanding and in agreement and ready for discharge on 03/18/2020. DISCHARGE MEDICATIONS: 1. Ventolin HFA 2 puffs inhaled q.4 hours p.r.n. 2. Abilify 2 mg p.o. daily. 3. Bupropion XL 300 mg p.o. daily. 4. Klonopin 0.5 mg p.o. b.i.d. 5. Clonidine 0.3 mg p.o. t.i.d. 6. Fluoxetine 40 mg p.o. q.a.m. 7. Advair Diskus two puffs inhaled b.i.d. 8. Protonix 40 mg p.o. daily. 9. Lyrica 100 mg p.o. at bedtime. 10. Norvasc 10 mg p.o. daily. 11. Enteric-coated aspirin 325 mg p.o. daily. FOLLOWUP: The patient will follow up with her primary care provider, Dr. Kel Hurd. The patient will follow up with Dr. Reynaldo Mariano with Nephrology Service for hemodialysis Monday, , and Saturdays. CONDITION ON DISCHARGE: Stable. ACTIVITY: Ad-janice. DIET: Renal and ADA. CODE STATUS: Full. DISPOSITION: To home on 03/18/2020. Job ID: [id number]
== END 2020-03-18 13:25 | disposition home or self-care (01) ==
LOC: ERS 08:40 → 2SW 12:07
PROVIDERS: ADMIT Family Medicine; ATTEND Family Medicine
DX: R07.89 Other chest pain (principal); I12.0 Hypertensive chronic kidney disease with stage 5 chronic kidney disease or end stage renal disease; E11.22 Type 2 diabetes mellitus with diabetic chronic kidney disease; N18.6 End stage renal disease; D63.1 Anemia in chronic kidney disease; K21.9 Gastro-esophageal reflux disease without esophagitis; I25.10 Atherosclerotic heart disease of native coronary artery without angina pectoris; J45.909 Unspecified asthma, uncomplicated; E11.40 Type 2 diabetes mellitus with diabetic neuropathy, unspecified; F32.9 Major depressive disorder, single episode, unspecified; Z79.82 Long term (current) use of aspirin; Z79.899 Other long term (current) drug therapy; Z99.2 Dependence on renal dialysis
CPT/HCPCS: 71045; 78452; 80048; 82550; 82553; 82962 ×2; 83690; 83735; 83880; 84484 ×2; 85025; 93005; 93017; 94640 ×2; 97139; 99285; A9500; 36415; 36416; 80053; 84443; G0378; J1644; J2785

== ENCOUNTER 2020-04-30 05:33 | Inpatient (IN) | payer MEDICARE, MEDICAID ==
[2020-04-30 07:13] LABS: #Basophils 0.1 thou/uL (0.0-0.2); #Eosinphils 0.4 thou/uL (0.0-0.7); #Lymphocytes 3.9 thou/uL (1.20-3.40); #Monocytes 0.9 thou/uL (0.11-0.59); #Neutrophils 4.1 thou/uL (1.40-6.50); %Basophils 0.8 % (0.0-1.0); %Eosinophils 4.4 % (0.0-10.0); %Lymphocytes 41.7 % (21.0-51.0); %Monocytes 9.8 % (0.0-10.0); %Neutrophils 43.3 % (42.0-75.0); Hemoglobin 10.7 g/dL (12.0-16.0); Mean Corpuscular HGB CONC 32.4 g/dL (32.0-36.0); Mean Corpuscular Volume 98.6 fL (78.0-98.0); Mean Platelet Volume 9.4 fL (7.4-10.4); Platelet Count 185 thou/uL (130-400); Red Blood Cell (RBC) Count 3.35 mill/uL (4.20-5.40); White Blood Cell (WBC) Count 9.4 thou/uL (4.8-10.8)
[2020-04-30 07:15] LABS: Lactic Acid 1.2 mmol/L (0.5-2.2)
[2020-04-30 07:28] LABS: ALT (SGPT) 11 U/L (8-55); AST (SGOT) 14 U/L (5-34); Acetaminophen Less than 6.0 mcg/mL (10.0-30.0); Albumin 4.1 g/dL (3.4-4.8); Alcohol Less than 10 mg/dL (Less than 10); Alkaline Phosphatase 73 U/L (40-110); Anion Gap 19 mmol/L (10-20); BUN (Urea Nitrogen) 47 mg/dL (9.8-20.1); Bilirubin, Total 0.4 mg/dL (0.2-1.2); Calc. Creatinine Clearance 0 mL/min (70-130); Calcium 9.4 mg/dL (7.8-10.44); Carbon Dioxide 26 mmol/L (23-31); Chloride 97 mmol/L (98-107); Estimated GFR-MDRD 5; Globulin 2.4 g/dL (2.4-3.5); Glucose 106 mg/dL (80-115); Potassium 4.6 mmol/L (3.5-5.1); Protein, Total 6.5 g/dL (6.0-8.3); Salicylate Less than 8.0 mg/dL (15.0-30.0); Sodium 137 mmol/L (136-145)
[2020-04-30 07:31] LABS: Troponin I 0.084 ng/mL (< 0.028)
--- NOTE | 2020-04-30 08:11 | CT ---
CT OF THE BRAIN WITHOUT CONTRAST: Date: 04/30/2020 INDICATION: Altered mental status and confusion. COMPARISON: Prior exam dated 01/08/2020. FINDINGS: No acute infarct, hemorrhage, or hydrocephalus is present. There is mild generalized cerebral atrophy . Mastoid air cells and paranasal sinuses are clear. IMPRESSION: No acute intracranial abnormality. POS: BH
--- NOTE | 2020-04-30 08:13 | RAD ---
CHEST 1 VIEW: Date: 04/30/2020 INDICATION: History of altered mental status. COMPARISON: Prior exam dated 03/17/2020. FINDINGS: There is cardiomegaly and mild pulmonary vascular congestion. No definite pleural effusion or pneumot horax is evident. No acute osseous abnormality is evident. IMPRESSION: Mild cardiomegaly with pulmonary vascular congestion. POS: BH
--- NOTE | 2020-04-30 10:27 | PDOC.HHP ---
Hospitalist HPI - History of Present Illness AMS History of Present Illness: PCP: Dr. Hdez The majority of the H&P was taken from the ER documentation due to the patient's chief complaint of altered mental status. The patient is a 69-year-old female with a past medical history significant for end-stage renal disease (HD //) followed by Dr. Sanches, hypertension, DM 2 (lifestyle modifications) and depression that presents to the emergency department by a family member in their personal vehicle for the above complaint. According to the ER notes, the patient has been confused for the past 2 days. This morning, family member says that the patient was confused, having visual hallucinations. Reported that the patient thought she was seeing objects behind the water heater at home and at one point might of been carrying a knife around in her bedroom. Per ER report, family members denied recent falls or traumas. No recent surgeries. She is a diabetic, however, she manages it with lifestyle changes. Reports her blood sugars are well controlled. Family denies any recent illness or fever. Family admits to a recent change in her home medications, stating that there is a new home blood pressure medication, but are unable to recall the name of the medication. The patient has a history of depression, however, she has never been hospitalized for this. The patient reports that she does make urine, however, denies any urinary symptoms such as dysuria, frequency or urgency. She denies any abdominal pain, nausea, vomiting, diarrhea. She denies any cough or shortness of breath. She denies any recent fever or chills. ED Course: VITAL SIGNS Saskia Apr 30, 2020 05:40 JOYCELYN Patterson Susannah BP: 162/65, Pulse: 80, Resp: 15, Temp: 97.8 (Oral), Pain: 5, O2 sat: 100 on (Room Air), Time: 04/30/2020 05:40. VITAL SIGNS [facility] Apr 30, 2020 05:47 JOYCELYN Bell [place] BP: 163/82, Pulse: 77, Resp: 15, Temp: 98 (Oral), O2 sat: 100 on (Room Air), Time: 04/30/2020 05:47. VITAL SIGNS [facility] Apr 30, 2020 07:08 JOYCELYN [place] BP: 143/50, Pulse: 71, Resp: 14, Temp: 97.9 (Oral), Pain: 6, O2 sat: 96 on (Room Air), Time: 04/30/2020 07:08. VITAL SIGNS [facility] Apr 30, 2020 08:14 JOYCELYN Muñiz Margaret BP: 126/57, Pulse: 65, Resp: 14, O2 sat: 100% on (Room Air), Time: 04/30/2020 08:14. VITAL SIGNS [facility] Apr 30, 2020 09:06 JOYCELYN Muñiz Margaret BP: 145/67, Pulse: 67, Resp: 14, Temp: 97.6 (Oral), Pain: utr, O2 sat: 100% on (Room Air), Time: 04/30/2020 09:06. Medication Administration: None Chest x-ray showed pulmonary congestion. Nephrology was consulted, Dr. Mariano to take patient to HD. Hospitalist ROS - Review of Systems ROS unobtainable: due to mental status All other systems reviewed; all pertinent +/- noted in HPI/Subj - Medication Medications: Lyrica [facility] Apr 30, 2020 05:55 JOYCELYN [place] capsule : Strength - 100 mg : ORAL Patient Dose: 2 times a day. cloNIDine HCl [facility] Apr 30, 2020 05:56 JOYCELYN [place] tablet : Strength - 0.3 mg : ORAL Patient Dose: 3 times a day. PROzac [facility] Apr 30, 2020 05:56 JOYCELYN [place] capsule : Strength - 20 mg : ORAL Patient Dose: 2 times a day. Allergies: No Known Allergies, No Known Drug Allergies (Unconfirmed) Hospitalist History - Past Medical History Source: patient (9), family, RN notes reviewed Cardiac: reports: HTN Psych: reports: Depression Renal/: reports: Chronic renal failure (ESRD, HD T/, followed by Dr. Sanches) Endocrine: reports: Diabetes (Type II, managed by lifestyle changes) - Past Surgical History Past Surgical History: reports: Hysterectomy - Family History Other Family History: Unable to gather at bedside due to patient's AMS - Social History Smoking Status: Never smoker Alcohol: reports: None Drugs: reports: none Living Situation: Alone Occupation: Does not work Activity level: uses cane/walker - Exam General Appearance: NAD General - other findings: Somnolent Eye: PERRL, anicteric sclera ENT: normocephalic atraumatic, dry oral mucosa Neck: supple, symmetric, no JVD Heart: RRR, no murmur, no gallops, no rubs, normal peripheral pulses Respiratory: CTAB, no wheezes, no rales, no ronchi, normal chest expansion, no tachypnea Gastrointestinal: soft, non-tender, normal bowel sounds, no guarding, no rigidity Extremities: no cyanosis, no edema Skin: no rashes Neurological: cranial nerve grossly intact, no focal deficits Psychiatric - other findings: Somnolent, GCS13, follows commands, confused Hospitalist Results - Labs Result Diagrams: 04/30/20 06:30 04/30/20 06:30 Lab results: WBC 9.4 thou/uL (4.8-10.8) 04/30/20 06:30 Hgb 10.7 g/dL (12.0-16.0) L 04/30/20 06:30 Hct 33.1 % (36.0-47.0) L 04/30/20 06:30 MCV 98.6 fL (78.0-98.0) H 04/30/20 06:30 Plt Count 185 thou/uL (130-400) 04/30/20 06:30 Neutrophils % 43.3 % (42.0-75.0) 04/30/20 06:30 Sodium 137 mmol/L (136-145) 04/30/20 06:30 Potassium 4.6 mmol/L (3.5-5.1) 04/30/20 06:30 Chloride 97 mmol/L (98-107) L 04/30/20 06:30 Carbon Dioxide 26 mmol/L (23-31) 04/30/20 06:30 BUN 47 mg/dL (9.8-20.1) H 04/30/20 06:30 Creatinine 9.32 mg/dL (0.6-1.1) H 04/30/20 06:30 Glucose 106 mg/dL (80-115) 04/30/20 06:30 Lactic Acid 1.2 mmol/L (0.5-2.2) 04/30/20 06:30 Calcium 9.4 mg/dL (7.8-10.44) 04/30/20 06:30 Total Bilirubin 0.4 mg/dL (0.2-1.2) 10/08/20 06:30 AST 14 U/L (5-34) 04/30/20 06:30 ALT 11 U/L (8-55) 04/30/20 06:30 Alkaline Phosphatase 73 U/L (40-110) 04/30/20 06:30 Ammonia 15 umol/L (18-72) L 04/30/20 07:30 Troponin I 0.084 ng/mL (< 0.028) H 04/30/20 06:30 Serum Total Protein 6.5 g/dL (6.0-8.3) 04/30/20 06:30 Albumin 4.1 g/dL (3.4-4.8) 04/30/20 06:30 - EKG Interpretation EK lead EKG interpreted by Emergency Department Physician at time of study, 12 lead EKG shows normal sinus rhythm, Interpretation:, Conduction normal, ST segments normal, T waves, [place] normal, Clinical impression:, No acute findings for ischemia at this time. HR:76. - Radiology Interpretation Chest x-ray Status: report reviewed by me Additional Comment: IMPRESSION: Mild cardiomegaly with pulmonary vascular congestion CT scan - head Status: report reviewed by me Additional Comment: IMPRESSION: No acute intracranial abnormality. Hospitalist H&P A/P - Problem (1) AMS (altered mental status) Code(s): R41.82 - ALTERED MENTAL STATUS, UNSPECIFIED Status: Acute (2) Elevated troponin Code(s): R77.8 - OTHER SPECIFIED ABNORMALITIES OF PLASMA PROTEINS Status: Acute (3) End stage renal disease on dialysis Code(s): N18.6 - END STAGE RENAL DISEASE; Z99.2 - DEPENDENCE ON RENAL DIALYSIS Status: Chronic (4) Hypertension Code(s): I10 - ESSENTIAL (PRIMARY) HYPERTENSION Status: Chronic (5) DM type 2 (diabetes mellitus, type 2) Status: Chronic (6) Depression Code(s): F32.9 - MAJOR DEPRESSIVE DISORDER, SINGLE EPISODE, UNSPECIFIED Status: Chronic - Plan Plan: 69/F with PMH ESRD, DM 2, HTN, depression presents for AMS. Admit to telemetry floor, observation status. Expected length of stay greater than 2 midnights less than 2 midnights. Presented hypertensive, NL HR, RR, SPO2, afebrile CT brain negative CXR shows pulmonary congestion BS 106, WBC 9.4, ammonia 15, serum drug screen unremarkable. UA and urine drug screen pending, straight cath in ED gave no UOP. Troponin 0.084 #AMS Unknown etiology at this time, lab work unremarkable. Patient has not missed hemodialysis this week. CXR showed some pulmonary congestion. BUN 47, creatinine 9.32 Patient taken to HD by Dr. Urias ABG pending - no sign of respiratory distress, Sp02 100% RA. #Elevated troponin Initial 0.084, previous 03/17/2020 was 0.178 We will trend troponins. Likely chronic elevation. #ESRD on dialysis k 4.6, BUN 47, creatinine 9.32 HD T//, followed by Dr. Sanches Has been compliant with HD schedule. Taken from ED to HD by Dr. Urias #Hypertension Presented BP 162/65. Unable to reconcile home medications. unsuccessful attempt to contact daughter via telephone. We will await reconciliation of home medications by nursing. Currently in HD session. #DM2 Presented BG 106. Reportedly does not take any home medications. Mild ISS Accu-Cheks AC at bedtime. Depression Denies SI/HI. Had reported visual hallucinations at home per family members. We will restart patient's home medications when reconciled by nursing. Heparin for DVT prophylaxis. No GI prophylaxis. Full code. Family contact is Wes at [phone]. Discussed case with Dr. Horner. I was able to speak to Wes via phone at 1310 today and she stated the he mother had a few mechanical falls at home in the past couple days and her home health nurse said that the patient may have taken some of her home medications incorrectly because her pill boxes were incorrect.
[2020-04-30] MEDS ORDERED: Ondansetron ODT 4 MG TAB PO PRN (11:22)
[2020-04-30] MEDS ORDERED: Ondansetron PF 4 MG/2 ML Vial IVP PRN (11:22)
[2020-04-30 12:12] LABS: Actual Bicarbonate (HCO3a) 29.8 mEq/L (22-28); Base Excess (BEa) 5.3 mEq/L (-2.0 to +3.0); CO2 Tension 43.6 mmHg (35.0-45.0); Calcium, Ionized (arterial) 1.16 mmol/L (1.12-1.30); O2 Tension (PaO2), arterial 78.1 mmHg (> 70.0); Potassium - ABG Lab 3.58 mmol/L (3.70-5.30); pH, Arterial 7.45 (7.35-7.45)
[2020-04-30 12:14] LABS: Puncture Site RBA
[2020-04-30 13:21] VITALS: BMI 31.6
[2020-04-30 14:22] LABS: Troponin I 0.049 ng/mL (< 0.028)
[2020-04-30] MEDS ORDERED: HumaLOG 300 UNITS/3 ML VIAL SC PRN ×2 (14:46)
[2020-04-30] MEDS ORDERED: Dextrose 5% in Water 1,000 ML IV PRN (14:46)
[2020-04-30] MEDS ORDERED: Dextrose 50% Abboject 50 ML SYRINGE SLOW IVP PRN (14:46)
[2020-04-30 17:34] LABS: SARS-CoV-2 MS2 Positive; SARS-CoV-2 N Gene Negative; SARS-CoV-2 S Gene Negative; SARS-CoV-2 by NAA Not Detected (NotDetected); SARS-CoV-2 orf1ab Negative
[2020-04-30 19:36] LABS: Troponin I 0.057 ng/mL (< 0.028)
[2020-04-30] MEDS: Acetaminophen 325 MG TAB PO PRN (21:09)
[2020-04-30] MEDS: Heparin 5,000 UNITS/ML VIAL SC SCH (21:09)
--- NOTE | 2020-04-30 23:32 | CON ---
DATE OF CONSULTATION: This is a nephrology consult. REASON FOR CONSULTATION: End-stage renal disease, for maintenance hemodialysis. HISTORY OF PRESENT ILLNESS: This is a 69-year-old female, presented to the hospital with altered mental status. The patient can give no further history, and I was consulted for dialysis replacement therapy. PAST MEDICAL HISTORY: Per records showed hypertension, end-stage renal disease, diabetes mellitus, history of congestive heart failure, history of hysterectomy, history of tunneled dialysis catheter, history of AV fistula. SOCIAL HISTORY: No alcohol or drug use. FAMILY HISTORY: Negative for ESRD. ALLERGIES: REVIEWED. HOME MEDICATIONS: List reviewed. HOSPITAL MEDICATIONS: List reviewed. REVIEW OF SYSTEMS: Unobtainable. PHYSICAL EXAMINATION: GENERAL: The patient is resting. VITAL SIGNS: Afebrile, pulse 75, breathing 16, blood pressure 123/67. HEENT: Head normocephalic and atraumatic. Eyes intact, no ulcers. Nose intact, no ulcers. Ears intact, no ulcers. Neck: Supple. No JVD. Chest: Symmetrical and clear. Cardiovascular: Shows S1 and S2, no rub, no murmur. Gastrointestinal: Abdomen is soft, bowel sounds positive. Extremities: Show no edema or ulcers. Skin: Shows no rash or petechiae. Musculoskeletal: Shows no joint swelling or stiffness. Genitourinary: Shows no Franco or CVA tenderness. Neurologic: The patient is resting. LABORATORY DATA: Reviewed. ASSESSMENT AND PLAN: 1. Stage 6 chronic kidney disease, plan dialysis. 2. Hypertension, stable. 3. Anemia, stable. 4. Medication based on GFR appropriate. Job ID: [id number]
[2020-05-01 04:38] LABS: #Basophils 0.1 thou/uL (0.0-0.2); #Eosinphils 0.4 thou/uL (0.0-0.7); #Lymphocytes 3.8 thou/uL (1.20-3.40); #Monocytes 0.8 thou/uL (0.11-0.59); #Neutrophils 4.1 thou/uL (1.40-6.50); %Basophils 0.6 % (0.0-1.0); %Eosinophils 4.2 % (0.0-10.0); %Monocytes 8.5 % (0.0-10.0); %Neutrophils 44.8 % (42.0-75.0); Hemoglobin 12.4 g/dL (12.0-16.0); Mean Corpuscular HGB CONC 33.9 g/dL (32.0-36.0); Mean Corpuscular Hemoglobin 33.1 pg (27.0-31.0); Mean Corpuscular Volume 97.6 fL (78.0-98.0); Mean Platelet Volume 9.1 fL (7.4-10.4); Platelet Count 166 thou/uL (130-400); RBC Distribution Width 12.9 % (11.5-14.5); Red Blood Cell (RBC) Count 3.73 mill/uL (4.20-5.40); White Blood Cell (WBC) Count 9.1 thou/uL (4.8-10.8)
[2020-05-01 05:03] LABS: Anion Gap 17 mmol/L (10-20); BUN (Urea Nitrogen) 28 mg/dL (9.8-20.1); Calc. Creatinine Clearance 10 mL/min (70-130); Calcium 9.7 mg/dL (7.8-10.44); Carbon Dioxide 28 mmol/L (23-31); Chloride 98 mmol/L (98-107); Estimated GFR-MDRD 7; Glucose 81 mg/dL (80-115); Potassium 4.7 mmol/L (3.5-5.1); Sodium 138 mmol/L (136-145)
[2020-05-01] MEDS: Heparin 5,000 UNITS/ML VIAL SC SCH ×2 (08:51→20:20)
[2020-05-01] MEDS ORDERED: Polyethylene Glycol 3350 17 GM Packet PO SCH (09:00)
[2020-05-01] MEDS ORDERED: Non-Formulary Item 1 EACH (Ventolin Hfa Inhaler [Ventolin Hfa Inhaler] 60 PUFF Aer) INH PRN (09:33)
[2020-05-01] MEDS ORDERED: PROVENTIL INHALER 6.7 G (200 INHALATIONS) INH PRN (09:46)
--- NOTE | 2020-05-01 11:21 | PDOC.FMACP ---
Advance Care Planning - Problem (1) Palliative care encounter Status: Acute Code(s): Z51.5 - ENCOUNTER FOR PALLIATIVE CARE (2) Elevated troponin Status: Acute Code(s): R77.8 - OTHER SPECIFIED ABNORMALITIES OF PLASMA PROTEINS (3) DM type 2 (diabetes mellitus, type 2) Status: Resolved (4) Hypertension Status: Chronic Code(s): I10 - ESSENTIAL (PRIMARY) HYPERTENSION (5) Anemia of renal disease Status: Chronic Code(s): D63.1 - ANEMIA IN CHRONIC KIDNEY DISEASE - Note Participants: patient, palliative care Summary: Palliative Care discussed Advanced Care Planning. The diagnosis, prognosis and goals of care were discussed. Appropriate forms and documentation to accomplish the goals of care were discussed. All questions were answered. MPOA and directive to physician completed, original given to patient, copies placed on chart for medical records. Transition to DNAR, registrar will complete OOHDNAR. Please refer to Palliative Care notes in note section Dr Peña notified Time Spent (mins): 15
--- NOTE | 2020-05-01 11:33 | PRG ---
DATE OF SERVICE: 05/01/2020 SUBJECTIVE: A 69-year-old female being seen for end-stage renal disease. The patient denied nausea, vomiting, or chest pain. OBJECTIVE: GENERAL: The patient is awake, alert. VITAL SIGNS: Afebrile, pulse 81, breathing 16, blood pressure 115/66. HEENT: Head normocephalic and atraumatic. Eyes intact, no ulcers. Nose intact, no ulcers. Ears intact, no ulcers. NECK: Supple. No JVD. CHEST: Symmetrical and clear. CARDIOVASCULAR: Shows S1 and S2, no rub, no murmur. GASTROINTESTINAL: Abdomen is soft, bowel sounds positive. EXTREMITIES: Show no edema or ulcers. SKIN: Shows no rash or petechiae. MUSCULOSKELETAL: Shows no joint swelling or stiffness. GENITOURINARY: Shows no Franco or CVA tenderness. NEUROLOGIC: Motor intact. Cranial nerves intact. LABORATORY DATA: Hemoglobin 12.4. ASSESSMENT: 1. Stage 6 chronic kidney disease, plan dialysis per schedule. 2. Hypertension, stable. 3. Anemia, stable. Medication based on GFR appropriate. Job ID: [id number]
--- NOTE | 2020-05-01 13:28 | CON ---
NEUROLOGY CONSULTATION DATE OF CONSULTATION: 05/01/2020 REASON FOR CONSULTATION: Altered mental status. HISTORY OF PRESENT ILLNESS: Ms. See Briggs is a 69-year-old female with medical history significant for end-stage renal disease followed by Dr. Sanches, hypertension, diabetes mellitus, and depression, presented to the emergency room by a family member because of acute onset of altered mental status. Per records, the patient has been confused for the last 2 days, but yesterday moment, she was extremely confused and was having visual hallucinations. She was seeing objects in her house and at one point, she was seen carrying a knife in her bedroom. The family members denied focal paresthesias, focal numbness, nausea, vomiting, headache, chest pain, abdominal pain, problems with speech or swallowing associated with confusion. The patient denies any exposure to COVID, nausea, vomiting, diarrhea, shortness of breath, or loss of smell. In the emergency room, vitals were blood pressure 162/65, pulse 80, respiratory rate 18. Chest x-ray was done, which showed pulmonary congestion and she was transferred to the floor for further evaluation. REVIEW OF SYSTEMS: All 14 systems were reviewed per records and were negative except the pertinent positives and negatives mentioned in the HPI. MEDICATIONS: 1. Lyrica 100 mg twice daily. 2. Clonidine 0.3 mg three times a day. 3. Prozac 20 mg two times a day. ALLERGIES: NO KNOWN DRUG ALLERGIES. PAST MEDICAL HISTORY: Hypertension, depression, chronic renal failure, diabetes. PAST SURGICAL HISTORY: Hysterectomy. FAMILY HISTORY: No family history of stroke. SOCIAL HISTORY: The patient denies smoking, alcohol, illegal drug use. She lives alone and does not work. PHYSICAL EXAMINATION: 125/66 18 85 General Appearance: NAD General - other findings: Somnolent Eye: PERRL, anicteric sclera ENT: normocephalic atraumatic, dry oral mucosa Neck: supple, symmetric, no JVD Heart: RRR, no murmur, no gallops, no rubs, normal peripheral pulses Respiratory: CTAB, no wheezes, no rales, no ronchi, normal chest expansion, no tachypnea Gastrointestinal: soft, non-tender, normal bowel sounds, no guarding, no rigidity Extremities: no cyanosis, no edema Skin: no rashes Neurological: Mental status; the patient is now alert and oriented to person, place, and time. Speech is clear. Cranial nerves 2 through 12 intact. Motor, muscle tone and bulk are normal. Strength 5/5 bilaterally. Sensory intact. Cerebellar, finger-nose testing intact. Gait deferred due to the patient's safety reason. DATA REVIEWED: I reviewed the labs which were significant for hemoglobin of 10.7, hematocrit of 33.1. Chronic kidney disease with a BUN of 37 and creatinine of 9.32. Rest of the labs were unremarkable. EKG showed normal sinus rhythm. Chest x- ray showed mild cardiomegaly with pulmonary vascular congestion and CT scan did not reveal any acute intracranial pathology. Lab results: WBC 9.4 thou/uL (4.8-10.8) 04/30/20 06:30 Hgb 10.7 g/dL (12.0-16.0) L 04/30/20 06:30 Hct 33.1 % (36.0-47.0) L 04/30/20 06:30 MCV 98.6 fL (78.0-98.0) H 04/30/20 06:30 Plt Count 185 thou/uL (130-400) 04/30/20 06:30 Neutrophils % 43.3 % (42.0-75.0) 04/30/20 06:30 Sodium 137 mmol/L (136-145) 04/30/20 06:30 Potassium 4.6 mmol/L (3.5-5.1) 04/30/20 06:30 Chloride 97 mmol/L (98-107) L 04/30/20 06:30 Carbon Dioxide 26 mmol/L (23-31) 04/30/20 06:30 BUN 47 mg/dL (9.8-20.1) H 04/30/20 06:30 Creatinine 9.32 mg/dL (0.6-1.1) H 04/30/20 06:30 Glucose 106 mg/dL (80-115) 04/30/20 06:30 Lactic Acid 1.2 mmol/L (0.5-2.2) 04/30/20 06:30 Calcium 9.4 mg/dL (7.8-10.44) 04/30/20 06:30 Total Bilirubin 0.4 mg/dL (0.2-1.2) 04/30/20 06:30 AST 14 U/L (5-34) 04/30/20 06:30 ALT 11 U/L (8-55) 04/30/20 06:30 Alkaline Phosphatase 73 U/L (40-110) 04/30/20 06:30 Ammonia 15 umol/L (18-72) L 04/30/20 07:30 Troponin I 0.084 ng/mL (< 0.028) H 04/30/20 06:30 Serum Total Protein 6.5 g/dL (6.0-8.3) 04/30/20 06:30 Albumin 4.1 g/dL (3.4-4.8) 04/30/20 06:30 - EKG Interpretation EK lead EKG interpreted by Emergency Department Physician at time of study, 12 lead EKG shows normal sinus rhythm, Interpretation:, Conduction normal, ST segments normal, T waves, [place] normal, Clinical impression:, No acute findings for ischemia at this time. HR:76. - Radiology Interpretation Chest x-ray Status: report reviewed by me Additional Comment: IMPRESSION: Mild cardiomegaly with pulmonary vascular congestion CT scan - head Status: report reviewed by me Additional Comment: IMPRESSION: No acute intracranial abnormality. ASSESSMENT AND PLAN: (1) AMS (altered mental status) Code(s): R41.82 - ALTERED MENTAL STATUS, UNSPECIFIED Status: Acute (2) Elevated troponin Code(s): R77.8 - OTHER SPECIFIED ABNORMALITIES OF PLASMA PROTEINS Status: Acute (3) End stage renal disease on dialysis Code(s): N18.6 - END STAGE RENAL DISEASE; Z99.2 - DEPENDENCE ON RENAL DIALYSIS Status: Chronic (4) Hypertension Code(s): I10 - ESSENTIAL (PRIMARY) HYPERTENSION Status: Chronic (5) DM type 2 (diabetes mellitus, type 2) Status: Chronic (6) Depression Code(s): F32.9 - MAJOR DEPRESSIVE DISORDER, SINGLE EPISODE, UNSPECIFIED Status: Chronic Ms. See Briggs is a 69-year-old female with history significant for end-stage renal disease, hypertension, diabetes, depression, presented with altered mental status. Altered mental status seems multifactorial most likely secondary to metabolic etiology versus infectious; however, intracranial process could not be completely ruled out. Consider MRI of the brain to rule out acute intracranial process. r EEG to rule out underlying cortical irritability is negative. Neuro checks every 4 hours. Continue home medications. Telemetry to rule out arrhythmias. Continue medical management per primary team and Nephrology. Further recommendations will depend on the results of the testing. Thank you for the consult. Job ID: [id number] MTDD
--- NOTE | 2020-05-01 14:55 | EEG ---
DATE OF SERVICE: 05/01/2020 ATTENDING PHYSICIAN: Apoorva Avalos MD This EEG was performed using 24-channel [employer] video digital EEG machine with 24-disk electrodes. This was an extended 2 hours 6 minutes of inpatient video EEG recording. Digital analysis of the EEG was done for spike and seizure detection, which revealed no abnormalities. BACKGROUND: The posterior background rhythm is 8.5 to 9 Hz. The background rhythm attenuates with eye opening and enhances with eye closure. HYPERVENTILATION: Not performed. PHOTIC STIMULATION: No significant response seen with photic stimulation. SLEEP: Drowsiness is observed. EEG DIAGNOSIS: Occasional irregular theta activity seen during the recording. CLINICAL INTERPRETATION: This EEG is consistent with mild generalized nonspecific cerebral dysfunction. Job ID: [id number]
--- NOTE | 2020-05-01 15:33 | MRI ---
MRI BRAIN WITHOUT CONTRAST: HISTORY: Seizure. Altered mental status. COMPARISON: 01/13/2020. CORRELATION: CT brain of 04/30/2020. FINDINGS: No restricted diffusion is seen. Multiple foci of T2 prolongation in the periventricular white matte r are consistent with chronic small-vessel ischemic disease. No evidence of infarct, hemorrhage, mid line shift, or abnormal extraaxial fluid collections is seen. The ventricular size is stable and the basilar cisterns patent. An empty sella is again noted. IMPRESSION: No evidence of acute intracranial process. POS: AH
--- NOTE | 2020-05-01 18:36 | PDOC.HOSPP ---
- Subjective Encounter Date: 05/01/20 Encounter Time: 12:30 Subjective: Patient up in bed oriented x3 does not appear in any distress. Daughter at bedside updated. - Objective Vital Signs & Weight: Vital Signs (12 hours) Temp Pulse Resp BP Pulse Ox 05/01/20 15:48 98.6 F 88 18 124/82 97 05/01/20 12:30 98.2 F 85 18 122/56 L 95 05/01/20 07:19 98.3 F 81 18 115/56 L 95 Weight Admit Weight 173 lb 1.6 oz Weight 173 lb 1.6 oz I&O: 04/30/20 05/01/20 05/02/20 06:59 06:59 06:59 Intake Total 800 720 Balance 800 720 Result Diagrams: 05/01/20 04:26 05/01/20 04:26 Additional Labs: Accuchecks 05/01/20 05/01/20 04/30/20 10:25 05:47 21:14 POC Glucose 101 H 73 100 Hospitalist ROS - Review of Systems Cardiovascular: denies: chest pain, palpitations, orthopnea, paroxysmal noc. dyspnea, edema, light headedness, other Gastrointestinal: denies: nausea, vomiting, abdominal pain, diarrhea, constipation, melena, hematochezia, other Genitourinary: denies: dysuria, frequency, incontinence, hematuria, retention, other - Medication Medications: Active Medications Generic Name Dose Route Start Last Admin Trade Name Freq PRN Reason Stop Dose Admin Acetaminophen 650 mg 04/30/20 11:22 04/30/20 21:09 Acetaminophen 325 Mg Tab PO 650 mg Q4H PRN Administration Headache/Fever/Mild Pain (1-3) Heparin Sodium (Porcine) 5,000 units 04/30/20 21:00 05/01/20 08:51 Heparin 5,000 Units/Ml Vial SC 5,000 units BID TITA Administration Insulin Human Lispro 0 units 04/30/20 14:46 04/30/20 17:36 Humalog 300 Units/3 Ml Vial SC 2 unit .MILD SLIDING SCALE PRN Administration Mild Correctional Scale Polyethylene Glycol 17 gm 05/01/20 09:00 05/01/20 18:27 Polyethylene Glycol 3350 17 Gm Packet PO Not Given Q2DAYS TITA - Exam Neck: negative: supple, symmetric, no JVD, no thyromegaly, no lymphadenopathy, no carotid bruit, JVD Heart: negative: RRR, no murmur, no gallops, no rubs, normal peripheral pulses, irregular, diminshed peripheral pulses, murmur present, II/IV, III/IV Respiratory: negative: CTAB, no wheezes, no rales, no ronchi, normal chest expansion, no tachypnea, normal percussion, rales, rhonchi, tachypneic, wheezes Gastrointestinal: negative: soft, non-tender, non-distended, normal bowel sounds, no palpable masses, no hepatomegaly, no splenomegaly, no bruit, no guarding, no rigidity, tender to palpation, distended, diminished bowl sounds, voluntary guarding Hosp A/P (1) Acute metabolic encephalopathy Code(s): G93.41 - METABOLIC ENCEPHALOPATHY Status: Acute (2) Diabetes Code(s): E11.9 - TYPE 2 DIABETES MELLITUS WITHOUT COMPLICATIONS Status: Chronic Qualifiers: Diabetes mellitus type: type 2 Diabetes mellitus complication status: with unspecified complications (3) ESRD (end stage renal disease) on dialysis Code(s): N18.6 - END STAGE RENAL DISEASE; Z99.2 - DEPENDENCE ON RENAL DIALYSIS Status: Chronic (4) HTN (hypertension) Code(s): I10 - ESSENTIAL (PRIMARY) HYPERTENSION Status: Chronic (5) Hypertension Code(s): I10 - ESSENTIAL (PRIMARY) HYPERTENSION Status: Chronic - Plan MRI brain negative EEG negative. Spoke with patient's daughter who states that when the home health nurse got home she found out that patient's medications were put out incorrectly. Her acute confusion could be secondary to inappropriate taking of medications. She has not been on any new medications per family except for Norvasc we will continue to monitor overnight if stable possible discharge in a.m. Patient is a DNAR I spoke with the patient's daughter and she has agreed on this
[2020-05-01] MEDS: Mometasone 200 MCG/Formoterol 5 MCG 120 PUFF INHALER INH SCH (19:39)
[2020-05-01] MEDS: Pregabalin 50 MG CAP PO SCH (20:20)
[2020-05-01] MEDS: clonazePAM 0.5 MG TAB PO SCH (20:21)
[2020-05-01] MEDS: cloNIDine 0.3 MG TAB PO SCH (20:21)
[2020-05-01] MEDS ORDERED: SALMETEROL INH SCH (21:00)
[2020-05-01] MEDS ORDERED: DISK W DE INH SCH (21:00)
[2020-05-01] MEDS ORDERED: [UNRECOGNIZED DRUG - OTHER] INH SCH (21:00)
[2020-05-01] MEDS ORDERED: FLUTICASONE INH SCH (21:00)
[2020-05-02] MEDS: Acetaminophen 325 MG TAB PO PRN (06:07)
[2020-05-02] MEDS: Mometasone 200 MCG/Formoterol 5 MCG 120 PUFF INHALER INH SCH ×2 (07:14→18:41)
[2020-05-02] MEDS: Pregabalin 50 MG CAP PO SCH (08:35)
[2020-05-02] MEDS: clonazePAM 0.5 MG TAB PO SCH (08:35)
[2020-05-02] MEDS: cloNIDine 0.3 MG TAB PO SCH ×3 (08:36→15:38)
[2020-05-02] MEDS: Heparin 5,000 UNITS/ML VIAL SC SCH (08:37)
[2020-05-02] MEDS ORDERED: FLUoxetine HCl 20 MG CAP PO SCH (09:00)
[2020-05-02] MEDS ORDERED: Bupropion 150 MG XL TAB PO SCH (09:00)
[2020-05-02] MEDS ORDERED: Aspirin 81 mg Enteric Coated Tablet PO SCH (09:00)
[2020-05-02] MEDS ORDERED: Aripiprazole 2 MG TAB PO SCH (09:00)
--- NOTE | 2020-05-02 11:04 | PRG ---
DATE OF SERVICE: 05/02/2020 SUBJECTIVE: A 69-year-old female being seen for end-stage renal disease. The patient denies any nausea, vomiting, or chest pain. OBJECTIVE: GENERAL: The patient is awake and alert. VITAL SIGNS: Afebrile, pulse 79, breathing at 16, blood pressure 132/62. HEENT: Head normocephalic and atraumatic. Eyes intact, no ulcers. Nose intact, no ulcers. Ears intact, no ulcers. NECK: Supple. No JVD. CHEST: Symmetrical and clear. CARDIOVASCULAR: Shows S1 and S2, no rub, no murmur. GASTROINTESTINAL: Abdomen is soft, bowel sounds positive. EXTREMITIES: Show no edema or ulcers. SKIN: Shows no rash or petechiae. MUSCULOSKELETAL: Shows no joint swelling or stiffness. GENITOURINARY: Shows no Franco or CVA tenderness. NEUROLOGIC: Motor intact. Cranial nerves intact. LABORATORY DATA: Reviewed. ASSESSMENT AND PLAN: 1. Stage 6 chronic kidney disease, continue with dialysis. 2. Hypertension, stable. 3. Anemia, stable. 4. Medication based on GFR appropriate. Job ID: [id number]
--- NOTE | 2020-05-02 14:36 | PDOC.HOSPP ---
- Subjective Encounter Date: 05/02/20 Encounter Time: 14:26 Subjective: Ms. Briggs was seen today for altered mental status. She says she continues to have hallucinations, but she tells methis has been going on for a long time. every since her twin sister about 6 years ago. - Objective Vital Signs & Weight: Vital Signs (12 hours) Temp Pulse Resp BP Pulse Ox 05/02/20 11:15 98 F 82 14 140/65 94 L 05/02/20 07:29 97.1 F L 73 16 133/62 95 05/02/20 07:14 73 16 98 05/02/20 04:00 98.1 F 79 18 135/60 97 Weight Admit Weight 173 lb 1.6 oz Weight 173 lb 1.6 oz I&O: 05/01/20 05/02/20 05/03/20 06:59 06:59 06:59 Intake Total 800 870 Balance 800 870 Result Diagrams: 05/01/20 04:26 05/01/20 04:26 Additional Labs: Accuchecks 05/02/20 05/02/20 05/01/20 10:30 05:58 21:01 POC Glucose 104 H 73 95 Hospitalist ROS - Medication Medications: Active Medications Generic Name Dose Route Start Last Admin Trade Name Freq PRN Reason Stop Dose Admin Acetaminophen 650 mg 04/30/20 11:22 05/02/20 06:07 Acetaminophen 325 Mg Tab PO 650 mg Q4H PRN Administration Headache/Fever/Mild Pain (1-3) Aripiprazole 2 mg 05/02/20 09:00 05/02/20 08:36 Aripiprazole 2 Mg Tab PO 2 mg DAILY TITA Administration Aspirin 81 mg 05/02/20 09:00 05/02/20 08:37 Aspirin 81 Mg Enteric Coated Tablet PO 81 mg DAILY TITA Administration Bupropion HCl 300 mg 05/02/20 09:00 05/02/20 08:36 Bupropion 150 Mg Xl Tab PO 300 mg DAILY TITA Administration Clonazepam 0.5 mg 05/01/20 21:00 05/02/20 08:35 Clonazepam 0.5 Mg Tab PO 0.5 mg BID TITA Administration Clonidine 0.3 mg 05/01/20 21:00 05/02/20 08:36 Clonidine 0.3 Mg Tab PO Not Given TID TITA Fluoxetine HCl 40 mg 05/02/20 09:00 05/02/20 08:35 Fluoxetine Hcl 20 Mg Cap PO 40 mg QAM TITA Administration Heparin Sodium (Porcine) 5,000 units 04/30/20 21:00 05/02/20 08:37 Heparin 5,000 Units/Ml Vial SC 5,000 units BID TITA Administration Insulin Human Lispro 0 units 04/30/20 14:46 04/30/20 17:36 Humalog 300 Units/3 Ml Vial SC 2 unit .MILD SLIDING SCALE PRN Administration Mild Correctional Scale Mometasone Furoate/Formoterol Fumar 2 puff 05/01/20 18:30 05/02/20 07:14 Mometasone 200 Mcg/Formoterol 5 Mcg 120 Puff Inhaler INH 2 puff BID-RT TITA Administration Pantoprazole Sodium 40 mg 05/02/20 09:00 05/02/20 08:34 Pantoprazole 40 Mg Tab PO 40 mg QAM TITA Administration Polyethylene Glycol 17 gm 05/01/20 09:00 05/01/20 18:27 Polyethylene Glycol 3350 17 Gm Packet PO Not Given Q2DAYS TITA Pregabalin 100 mg 05/01/20 21:00 05/02/20 08:35 Pregabalin 50 Mg Cap PO 100 mg BID TITA Administration - Exam Eye: PERRL, anicteric sclera Heart: RRR, no murmur, no gallops, no rubs, normal peripheral pulses Respiratory: CTAB, no wheezes, no rales, no ronchi, normal chest expansion Gastrointestinal: soft, non-tender, non-distended, normal bowel sounds, no palpable masses, no hepatomegaly Extremities: no cyanosis, no edema Hosp A/P (1) AMS (altered mental status) Code(s): R41.82 - ALTERED MENTAL STATUS, UNSPECIFIED Status: Acute (2) Depression Code(s): F32.9 - MAJOR DEPRESSIVE DISORDER, SINGLE EPISODE, UNSPECIFIED St atus: Chronic (3) End stage renal disease on dialysis Code(s): N18.6 - END STAGE RENAL DISEASE; Z99.2 - DEPENDENCE ON RENAL DIALYSIS Status: Chronic (4) Hypertension Code(s): I10 - ESSENTIAL (PRIMARY) HYPERTENSION Status: Chronic (5) DMII (diabetes mellitus, type 2) Status: Chronic - Plan * Altered mental status- this may be more chronic that initially thought * MRI and EEG are negative * ESRD- stable * HTN- blood pressure is stable * DM- blood glucose is also stable * Stable for discharge home
[2020-05-02 16:14] VITALS: BP 161/59; TEMP 98.3
--- NOTE | 2020-05-02 20:01 | DIS ---
DATE OF ADMISSION: 04/30/2020 DATE OF DISCHARGE: 05/02/2020 PRIMARY CARE PHYSICIAN: Unknown. DISCHARGE DIAGNOSES: 1. Metabolic encephalopathy. 2. Visual auditory hallucinations. 3. End-stage renal disease, on hemodialysis. 4. Hypertension. 5. Diabetes mellitus type 2. 6. Depression. DISCHARGE MEDICATIONS: Note, there was no change in the medications. She is to continue Ventolin HFA 2 puffs q.4 hours as needed, pantoprazole 40 mg p.o. daily, Norvasc 5 mg p.o. daily, MiraLAX 17 g p.o. every other day, Lyrica 100 mg p.o. at bedtime, Klonopin 0.5 mg b.i.d., fluoxetine 40 mg daily, clonidine 0.3 mg t.i.d., bupropion XL 300 mg daily, aspirin 81 mg daily, albuterol 1 puff b.i.d., Advair Diskus 250/50 two puffs b.i.d., and Abilify 2 mg p.o. daily. IMAGING DONE DURING THE HOSPITAL STAY: The patient had a CT scan of the brain, which showed no acute intracranial abnormality. The patient had an MRI of the brain also with no evidence of any acute intracranial abnormality. The patient had an EEG consistent with some mild generalized nonspecific cerebral dysfunction. CODE STATUS: DNAR. ALLERGIES: NO KNOWN DRUG ALLERGIES. HOSPITAL COURSE: Ms. Briggs is a pleasant 69-year-old female, who was brought to the hospital due to altered mental status. The patient was having both visual and auditory hallucinations, seeing and actually talking to people that were not there and apparently the patient did not know that she was in her own home. She was brought into the hospital and had an MRI of the brain, which was negative as well as an EEG. I spoke with the patient at the time of discharge, and she tells me that she has been having these visual and auditory hallucinations for several years, at least when her sister , this is when it started and she typically sees people who are and she converses with them. She says this has been about the same. She has seen a psychiatrist for this, has been placed on medications. She says it keeps the symptoms down somewhat, but it never has ever gone completely away. It appears as if she was getting her medications mixed up according to the home health nurse and this may have exacerbated her symptoms. I asked her about depression and she denies feeling depressed or having any symptoms such as anhedonia or sleep loss. I talked with her daughter about it and she denies any excessive stressors at home. The neurological workup was essentially negative. She will need to be careful with her medications as far as dispensing. The home health can help with this. The daughter has been made aware of some of the next steps with the medications and she can have close followup with her primary care physician. Job ID: [id number]
== END 2020-05-02 19:20 | disposition home or self-care (01) | DRG 91 ==
LOC: ERS 05:33 → 2NO 12:53
PROVIDERS: ADMIT Internal Medicine; ATTEND Internal Medicine
PROC: 5A1D70Z Performance of Urinary Filtration, Intermittent, Less than 6 Hours Per Day (ICD-10-PCS; principal; 2020-05-02)
PROC: 5A1D70Z Performance of Urinary Filtration, Intermittent, Less than 6 Hours Per Day (ICD-10-PCS; 2020-05-02)
DX: G92 Toxic encephalopathy (principal); N18.6 End stage renal disease; R44.0 Auditory hallucinations; I12.0 Hypertensive chronic kidney disease with stage 5 chronic kidney disease or end stage renal disease; Z20.828 Contact with and (suspected) exposure to other viral communicable diseases; Z66 Do not resuscitate; R44.1 Visual hallucinations; F32.9 Major depressive disorder, single episode, unspecified; E11.22 Type 2 diabetes mellitus with diabetic chronic kidney disease; D63.1 Anemia in chronic kidney disease; R77.8 Other specified abnormalities of plasma proteins; Z99.2 Dependence on renal dialysis; Z90.710 Acquired absence of both cervix and uterus
CPT/HCPCS: 36415; 36416; 70450; 70551; 71045; 80048; 80053; 80307; 82140; 82607; 82805; 83605; 84443; 84484; 85025; 87635; 90935; 93005; 94760; 95712; 95816; 95819; 95957; G0257; J1644; U0003

== ENCOUNTER 2020-08-29 12:42 | Emergency (ER) | payer MEDICARE, MEDICAID ==
[2020-08-29] MEDS ORDERED: Morphine 4 MG/ML VIAL ONE (13:19)
[2020-08-29 13:45] LABS: #Eosinphils 0.5 thou/uL (0.0-0.7); #Monocytes 0.9 thou/uL (0.11-0.59); #Neutrophils 3.9 thou/uL (1.40-6.50); %Basophils 0.6 % (0.0-1.0); %Eosinophils 5.7 % (0.0-10.0); %Monocytes 10.5 % (0.0-10.0); %Neutrophils 47.2 % (42.0-75.0); Hemoglobin 12.5 g/dL (12.0-16.0); Mean Corpuscular HGB CONC 32.6 g/dL (32.0-36.0); Mean Corpuscular Hemoglobin 31.8 pg (27.0-31.0); Mean Corpuscular Volume 97.7 fL (78.0-98.0); Mean Platelet Volume 8.8 fL (7.4-10.4); Platelet Count 188 thou/uL (130-400); RBC Distribution Width 13.7 % (11.5-14.5); Red Blood Cell (RBC) Count 3.92 mill/uL (4.20-5.40); White Blood Cell (WBC) Count 8.3 thou/uL (4.8-10.8)
--- NOTE | 2020-08-29 13:48 | RAD ---
XR Shoulder Rt 3 View STANDARD: 08/29/2020 1:07 PM CLINICAL INDICATION: 69-year-old female with right shoulder pain after fall. COMPARISON: January 05, 2020 FINDINGS: Bones: No acute fracture. Glenohumeral joint: Normal alignment. AC joint: Stable mild AC joint osteoarthrosis. Visualized lung: Clear. Soft tissues: Within normal limits. IMPRESSION: No acute osseous abnormality.
--- NOTE | 2020-08-29 13:50 | CT ---
CT THORACIC SPINE WITH CORONAL AND SAGITTAL REFORMATIONS: 08/29/20 HISTORY: Fall, right upper back pain. FINDINGS: Multilevel degenerative changes are seen. No acute fracture or subluxation is identified. There are probable cysts in the left kidney which should be confirmed with US. There is a 5 mm parenchymal nodule in the posterior aspect of the right upper lobe which is stable si nce CT scan of 05/31/11. IMPRESSION: No evidence of thoracic spine fracture. POS: [id number]
[2020-08-29 14:06] LABS: Anion Gap 20 mmol/L (10-20); BUN (Urea Nitrogen) 16 mg/dL (9.8-20.1); Calc. Creatinine Clearance 0 mL/min (70-130); Calcium 9.8 mg/dL (7.8-10.44); Carbon Dioxide 27 mmol/L (23-31); Chloride 101 mmol/L (98-107); Glucose 99 mg/dL (80-115); Potassium 3.5 mmol/L (3.5-5.1); Sodium 144 mmol/L (136-145)
== END 2020-08-29 16:05 | disposition home or self-care (01) ==
LOC: ERS 12:42
DX: M54.6 Pain in thoracic spine (principal); I12.0 Hypertensive chronic kidney disease with stage 5 chronic kidney disease or end stage renal disease; E11.22 Type 2 diabetes mellitus with diabetic chronic kidney disease; N18.6 End stage renal disease
CPT/HCPCS: 36415; 72128; 80048; 85025; 85652; 86140; 96372; J2270

== ENCOUNTER 2020-09-26 13:54 | Emergency (ER) | payer MEDICARE, MEDICAID ==
[2020-09-26] MEDS ORDERED: Ketorolac Tromethamine 30 MG/ML VIAL ONE (14:30)
== END 2020-09-26 14:48 | disposition home or self-care (01) ==
LOC: ERS 13:54
DX: M25.511 Pain in right shoulder (principal); I10 Essential (primary) hypertension; E11.9 Type 2 diabetes mellitus without complications; Z79.899 Other long term (current) drug therapy
CPT/HCPCS: 96372; 99283; J1885

== ENCOUNTER 2020-12-22 11:26 | Inpatient (IN) | payer MEDICARE, MEDICAID ==
[2020-12-22 12:29] LABS: ALT (SGPT) 45 U/L (8-55); AST (SGOT) 32 U/L (5-34); Albumin 4.1 g/dL (3.4-4.8); Alkaline Phosphatase 147 U/L (40-110); Anion Gap 20 mmol/L (10-20); BUN (Urea Nitrogen) 35 mg/dL (9.8-20.1); Bilirubin, Total 0.7 mg/dL (0.2-1.2); Calc. Creatinine Clearance 0 mL/min (70-130); Calcium 10.2 mg/dL (7.8-10.44); Carbon Dioxide 24 mmol/L (23-31); Chloride 100 mmol/L (98-107); Globulin 2.9 g/dL (2.4-3.5); Glucose 115 mg/dL (83-110); Hemoglobin 11.7 g/dL (12.0-16.0); Mean Corpuscular HGB CONC 32.8 g/dL (32.0-36.0); Mean Corpuscular Hemoglobin 31.6 pg (27.0-31.0); Mean Corpuscular Volume 96.3 fL (78.0-98.0); Mean Platelet Volume 10.7 fL (7.4-10.4); Platelet Count 178 thou/uL (130-400); Potassium 3.8 mmol/L (3.5-5.1); RBC Distribution Width 13.9 % (11.5-14.5); Sodium 140 mmol/L (136-145)
[2020-12-22 13:06] LABS: Lymphocytes 32 % (21-51); MDiff Complete? YES; Monocytes 5 % (0-10); Neutrophil 61 % (42-75); RBC Morphology Normal; Reactive Lymphocytes 1 % (0-10); White Blood Cell (WBC) Count 11.2 thou/uL (4.8-10.8)
[2020-12-22] MEDS ORDERED: Ondansetron PF 4 MG/2 ML Vial ONE (15:10)
[2020-12-22] MEDS ORDERED: Morphine 4 MG/ML VIAL ONE (15:10)
[2020-12-22] MEDS ORDERED: Aspirin 325 MG TAB PO SCH (17:15)
[2020-12-22] MEDS ORDERED: Ondansetron ODT 4 MG TAB PO PRN (17:16)
[2020-12-22] MEDS ORDERED: Ondansetron PF 4 MG/2 ML Vial IVP PRN (17:16)
[2020-12-22] MEDS ORDERED: Calcium Carbonate 500 MG ChewTAB PO PRN (17:16)
[2020-12-22 17:54] LABS: Troponin I 0.178 ng/mL (< 0.028)
[2020-12-22] MEDS ORDERED: Famotidine 20 MG TAB PO SCH (21:00)
[2020-12-22] MEDS: cloNIDine 0.3 MG TAB PO SCH (22:44)
[2020-12-22 23:28] VITALS: BMI 26.5
[2020-12-23 00:08] LABS: SARS-CoV-2 NAA Rapid Test Not Detected (NotDetected)
[2020-12-23 07:07] LABS: #Eosinphils 0.5 thou/uL (0.0-0.7); #Lymphocytes 2.4 thou/uL (1.20-3.40); #Neutrophils 5.2 thou/uL (1.40-6.50); %Basophils 0.3 % (0.0-1.0); %Eosinophils 5.3 % (0.0-10.0); %Lymphocytes 26.5 % (21.0-51.0); %Monocytes 10.5 % (0.0-10.0); %Neutrophils 57.4 % (42.0-75.0); Hemoglobin 11.5 g/dL (12.0-16.0); Mean Corpuscular HGB CONC 32.9 g/dL (32.0-36.0); Mean Corpuscular Hemoglobin 31.9 pg (27.0-31.0); Mean Platelet Volume 10.3 fL (7.4-10.4); Platelet Count 141 thou/uL (130-400); RBC Distribution Width 14.2 % (11.5-14.5); Red Blood Cell (RBC) Count 3.59 mill/uL (4.20-5.40); White Blood Cell (WBC) Count 9.1 thou/uL (4.8-10.8)
[2020-12-23 07:28] LABS: Anion Gap 15 mmol/L (10-20); BUN (Urea Nitrogen) 19 mg/dL (9.8-20.1); Calc. Creatinine Clearance 9 mL/min (70-130); Calcium 9.4 mg/dL (7.8-10.44); Carbon Dioxide 28 mmol/L (23-31); Cardiac Risk 2.5 (Less than 4.5); Chloride 102 mmol/L (98-107); Cholesterol 125 mg/dl (< 200 Desired); Glucose 63 mg/dL (83-110); HDL Cholesterol 51 mg/dL (>60 Neg Risk); LDL Cholesterol, Calculated 59 mg/dL; Potassium 3.8 mmol/L (3.5-5.1); Sodium 141 mmol/L (136-145); Triglycerides 77 mg/dL (Less than 150)
[2020-12-23] MEDS ORDERED: ALBUTEROL SULFATE NEB PRN (08:10)
[2020-12-23] MEDS ORDERED: Polyethylene Glycol 3350 17 GM Packet PO SCH (08:15)
[2020-12-23] MEDS ORDERED: clonazePAM 0.5 MG TAB PO SCH (09:00)
[2020-12-23] MEDS ORDERED: Non-Formulary Item 1 EACH (Albuterol Sulfate [Albuterol Sulfate Neb] 0.63 MG/3 ML Vial.Ne NEB SCH (09:00)
[2020-12-23] MEDS ORDERED: BUPROPION HCL 300 MG PO SCH (09:00)
[2020-12-23] MEDS: Aripiprazole 2 MG TAB PO SCH (09:36)
[2020-12-23] MEDS: Aspirin Chewable 81 MG TAB PO SCH (09:37)
[2020-12-23] MEDS: FLUoxetine HCl 20 MG CAP PO SCH (09:37)
[2020-12-23] MEDS: cloNIDine 0.3 MG TAB PO SCH ×4 (09:37→19:59)
[2020-12-23] MEDS: Amlodipine 10 MG TAB PO SCH (09:37)
[2020-12-23] MEDS: Enoxaparin Sodium 30 MG/0.3 ML SYRINGE SC SCH (09:39)
[2020-12-23] MEDS: Pregabalin 50 MG CAP PO SCH (20:01)
[2020-12-23] MEDS: Acetaminophen 325 MG TAB PO PRN (20:01)
[2020-12-24 04:34] LABS: #Eosinphils 0.5 thou/uL (0.0-0.7); #Lymphocytes 3.2 thou/uL (1.20-3.40); #Monocytes 0.8 thou/uL (0.11-0.59); #Neutrophils 3.3 thou/uL (1.40-6.50); %Basophils 0.4 % (0.0-1.0); %Monocytes 10.3 % (0.0-10.0); %Neutrophils 42.3 % (42.0-75.0); Hemoglobin 10.8 g/dL (12.0-16.0); Mean Corpuscular HGB CONC 32.7 g/dL (32.0-36.0); Mean Corpuscular Hemoglobin 31.6 pg (27.0-31.0); Mean Corpuscular Volume 96.6 fL (78.0-98.0); Mean Platelet Volume 9.9 fL (7.4-10.4); Platelet Count 150 thou/uL (130-400); Red Blood Cell (RBC) Count 3.42 mill/uL (4.20-5.40); White Blood Cell (WBC) Count 7.9 thou/uL (4.8-10.8)
[2020-12-24 04:48] LABS: Anion Gap 16 mmol/L (10-20); BUN (Urea Nitrogen) 30 mg/dL (9.8-20.1); Calc. Creatinine Clearance 7 mL/min (70-130); Carbon Dioxide 26 mmol/L (23-31); Chloride 100 mmol/L (98-107); Glucose 96 mg/dL (83-110); Potassium 3.5 mmol/L (3.5-5.1); Sodium 138 mmol/L (136-145)
[2020-12-24] MEDS: Amlodipine 10 MG TAB PO SCH (11:33)
[2020-12-24] MEDS: FLUoxetine HCl 20 MG CAP PO SCH (11:33)
[2020-12-24] MEDS: Aripiprazole 2 MG TAB PO SCH (11:35)
[2020-12-24] MEDS: Bupropion 150 MG XL TAB PO SCH (11:35)
[2020-12-24] MEDS: cloNIDine 0.3 MG TAB PO SCH ×3 (11:36→20:35)
[2020-12-24] MEDS: Aspirin Chewable 81 MG TAB PO SCH (11:36)
[2020-12-24] MEDS: Enoxaparin Sodium 30 MG/0.3 ML SYRINGE SC SCH (11:37)
[2020-12-24] MEDS: Pregabalin 50 MG CAP PO SCH (20:30)
[2020-12-24] MEDS: Acetaminophen 325 MG TAB PO PRN (20:33)
[2020-12-24] MEDS: Docusate 100 MG CAP PO SCH (20:33)
[2020-12-25] MEDS: Aripiprazole 2 MG TAB PO SCH (09:44)
[2020-12-25] MEDS: Aspirin Chewable 81 MG TAB PO SCH (09:45)
[2020-12-25] MEDS: FLUoxetine HCl 20 MG CAP PO SCH (09:45)
[2020-12-25] MEDS: Bupropion 150 MG XL TAB PO SCH (09:46)
[2020-12-25] MEDS: cloNIDine 0.3 MG TAB PO SCH ×2 (09:46→20:20)
[2020-12-25] MEDS: Enoxaparin Sodium 30 MG/0.3 ML SYRINGE SC SCH (09:48)
[2020-12-25] MEDS: Docusate 100 MG CAP PO SCH ×2 (09:49→20:21)
[2020-12-25] MEDS: Polyethylene Glycol 3350 17 GM Packet PO SCH (09:49)
[2020-12-25] MEDS: Amlodipine 10 MG TAB PO SCH (09:49)
[2020-12-25] MEDS ORDERED: Milk Of Magnesia 30 ML UDCUP PO SCH (14:30)
[2020-12-25] MEDS ORDERED: Acetaminophen 325 MG TAB PO SCH (14:45)
[2020-12-25] MEDS: Pregabalin 50 MG CAP PO SCH (20:21)
[2020-12-26 04:38] LABS: #Basophils 0.1 thou/uL (0.0-0.2); #Eosinphils 0.4 thou/uL (0.0-0.7); #Lymphocytes 3.7 thou/uL (1.20-3.40); #Neutrophils 3.8 thou/uL (1.40-6.50); %Basophils 0.8 % (0.0-1.0); %Eosinophils 4.9 % (0.0-10.0); %Lymphocytes 40.9 % (21.0-51.0); %Monocytes 11.1 % (0.0-10.0); %Neutrophils 42.3 % (42.0-75.0); Hemoglobin 11.5 g/dL (12.0-16.0); Mean Corpuscular HGB CONC 33.6 g/dL (32.0-36.0); Mean Corpuscular Hemoglobin 32.2 pg (27.0-31.0); Mean Corpuscular Volume 95.9 fL (78.0-98.0); Mean Platelet Volume 10.1 fL (7.4-10.4); Platelet Count 142 thou/uL (130-400); RBC Distribution Width 14.4 % (11.5-14.5); Red Blood Cell (RBC) Count 3.58 mill/uL (4.20-5.40)
[2020-12-26 05:06] LABS: Anion Gap 18 mmol/L (10-20); BUN (Urea Nitrogen) 41 mg/dL (9.8-20.1); Calc. Creatinine Clearance 7 mL/min (70-130); Calcium 8.6 mg/dL (7.8-10.44); Carbon Dioxide 24 mmol/L (23-31); Chloride 94 mmol/L (98-107); Glucose 124 mg/dL (83-110); Magnesium 2.2 mg/dL (1.6-2.6); Potassium 3.5 mmol/L (3.5-5.1); Sodium 132 mmol/L (136-145)
[2020-12-26] MEDS: cloNIDine 0.3 MG TAB PO SCH (14:08)
[2020-12-26] MEDS: Aripiprazole 2 MG TAB PO SCH (14:08)
[2020-12-26] MEDS: Docusate 100 MG CAP PO SCH ×2 (14:08→21:07)
[2020-12-26] MEDS: Enoxaparin Sodium 30 MG/0.3 ML SYRINGE SC SCH (14:08)
[2020-12-26] MEDS: Aspirin Chewable 81 MG TAB PO SCH (14:08)
[2020-12-26] MEDS: Bupropion 150 MG XL TAB PO SCH (14:08)
[2020-12-26] MEDS: FLUoxetine HCl 20 MG CAP PO SCH (14:09)
[2020-12-26] MEDS: Carvedilol 3.125 MG TAB PO SCH (17:17)
[2020-12-26] MEDS: Pregabalin 50 MG CAP PO SCH (21:07)
[2020-12-26] MEDS: Acetaminophen 325 MG TAB PO PRN (21:11)
[2020-12-27 05:04] LABS: #Basophils 0.2 thou/uL (0.0-0.2); #Eosinphils 0.5 thou/uL (0.0-0.7); #Lymphocytes 3.9 thou/uL (1.20-3.40); #Monocytes 1.1 thou/uL (0.11-0.59); #Neutrophils 3.5 thou/uL (1.40-6.50); %Basophils 1.7 % (0.0-1.0); %Eosinophils 5.4 % (0.0-10.0); %Lymphocytes 42.9 % (21.0-51.0); %Monocytes 11.7 % (0.0-10.0); %Neutrophils 38.3 % (42.0-75.0); Hemoglobin 11.8 g/dL (12.0-16.0); Mean Corpuscular HGB CONC 33.3 g/dL (32.0-36.0); Mean Corpuscular Hemoglobin 31.9 pg (27.0-31.0); Mean Corpuscular Volume 95.9 fL (78.0-98.0); Mean Platelet Volume 10.3 fL (7.4-10.4); Platelet Count 145 thou/uL (130-400); RBC Distribution Width 14.2 % (11.5-14.5); Red Blood Cell (RBC) Count 3.71 mill/uL (4.20-5.40); White Blood Cell (WBC) Count 9.1 thou/uL (4.8-10.8)
[2020-12-27 05:46] LABS: Anion Gap 16 mmol/L (10-20); BUN (Urea Nitrogen) 22 mg/dL (9.8-20.1); Calc. Creatinine Clearance 9 mL/min (70-130); Calcium 9.1 mg/dL (7.8-10.44); Carbon Dioxide 26 mmol/L (23-31); Chloride 98 mmol/L (98-107); Glucose 72 mg/dL (83-110); Magnesium 1.8 mg/dL (1.6-2.6); Potassium 3.9 mmol/L (3.5-5.1); Sodium 136 mmol/L (136-145)
[2020-12-27 05:51] LABS: Phosphorus 4.5 mg/dL (2.3-4.7)
[2020-12-27] MEDS ORDERED: Lisinopril 10 MG TAB PO SCH (09:00)
[2020-12-27] MEDS: Enoxaparin Sodium 30 MG/0.3 ML SYRINGE SC SCH (10:03)
[2020-12-27] MEDS: Carvedilol 3.125 MG TAB PO SCH ×2 (10:03→17:52)
[2020-12-27] MEDS: Aspirin Chewable 81 MG TAB PO SCH (10:03)
[2020-12-27] MEDS: Docusate 100 MG CAP PO SCH ×2 (10:03→20:24)
[2020-12-27] MEDS: Aripiprazole 2 MG TAB PO SCH (10:03)
[2020-12-27] MEDS: Bupropion 150 MG XL TAB PO SCH (10:03)
[2020-12-27] MEDS: Lisinopril 2.5 MG TAB PO SCH (10:04)
[2020-12-27] MEDS: FLUoxetine HCl 20 MG CAP PO SCH (10:04)
[2020-12-27] MEDS: Polyethylene Glycol 3350 17 GM Packet PO SCH (10:04)
[2020-12-27] MEDS ORDERED: Fioricet 325/50/40 mg Tablet PO PRN (12:07)
[2020-12-27] MEDS ORDERED: Fioricet 325/50/40 mg Tablet PO SCH (12:15)
[2020-12-27] MEDS: Pregabalin 50 MG CAP PO SCH (20:24)
[2020-12-28 04:43] LABS: #Basophils 0.1 thou/uL (0.0-0.2); #Eosinphils 0.6 thou/uL (0.0-0.7); #Lymphocytes 3.9 thou/uL (1.20-3.40); #Monocytes 0.9 thou/uL (0.11-0.59); %Basophils 0.8 % (0.0-1.0); %Eosinophils 6.9 % (0.0-10.0); %Lymphocytes 46.2 % (21.0-51.0); %Monocytes 10.7 % (0.0-10.0); %Neutrophils 35.3 % (42.0-75.0); Hemoglobin 11.5 g/dL (12.0-16.0); Mean Corpuscular HGB CONC 33.2 g/dL (32.0-36.0); Mean Corpuscular Hemoglobin 31.9 pg (27.0-31.0); Mean Corpuscular Volume 95.9 fL (78.0-98.0); Mean Platelet Volume 10.5 fL (7.4-10.4); Platelet Count 134 thou/uL (130-400); White Blood Cell (WBC) Count 8.5 thou/uL (4.8-10.8)
[2020-12-28 05:12] LABS: Anion Gap 18 mmol/L (10-20); BUN (Urea Nitrogen) 44 mg/dL (9.8-20.1); Calc. Creatinine Clearance 6 mL/min (70-130); Calcium 8.5 mg/dL (7.8-10.44); Carbon Dioxide 26 mmol/L (23-31); Chloride 96 mmol/L (98-107); Glucose 63 mg/dL (83-110); Sodium 136 mmol/L (136-145)
[2020-12-28] MEDS: Aripiprazole 2 MG TAB PO SCH (08:25)
[2020-12-28] MEDS: Enoxaparin Sodium 30 MG/0.3 ML SYRINGE SC SCH (08:26)
[2020-12-28] MEDS: Docusate 100 MG CAP PO SCH (08:26)
[2020-12-28] MEDS: FLUoxetine HCl 20 MG CAP PO SCH (08:26)
[2020-12-28] MEDS: Aspirin Chewable 81 MG TAB PO SCH (08:26)
[2020-12-28] MEDS: Lisinopril 2.5 MG TAB PO SCH (08:26)
[2020-12-28] MEDS: Bupropion 150 MG XL TAB PO SCH (08:26)
[2020-12-28] MEDS: Carvedilol 3.125 MG TAB PO SCH ×2 (08:27→16:28)
[2020-12-28 16:02] VITALS: BP 116/58; TEMP 97.9
== END 2020-12-28 17:20 | disposition home health service (06) | DRG 291 ==
LOC: ERS 11:26 → 2NO 16:37
PROVIDERS: ADMIT Internal Medicine; ATTEND Family Medicine
PROC: 5A1D70Z Performance of Urinary Filtration, Intermittent, Less than 6 Hours Per Day (ICD-10-PCS; principal; 2020-12-22)
DX: I13.2 Hypertensive heart and chronic kidney disease with heart failure and with stage 5 chronic kidney disease, or end stage renal disease (principal); N18.6 End stage renal disease; I50.23 Acute on chronic systolic (congestive) heart failure; I24.8 Other forms of acute ischemic heart disease; Z20.822 Contact with and (suspected) exposure to COVID-19; E11.22 Type 2 diabetes mellitus with diabetic chronic kidney disease; F31.9 Bipolar disorder, unspecified; K21.9 Gastro-esophageal reflux disease without esophagitis; F20.9 Schizophrenia, unspecified; D63.1 Anemia in chronic kidney disease; G47.33 Obstructive sleep apnea (adult) (pediatric); I25.10 Atherosclerotic heart disease of native coronary artery without angina pectoris; J45.20 Mild intermittent asthma, uncomplicated; K59.00 Constipation, unspecified; Z79.51 Long term (current) use of inhaled steroids; Z79.899 Other long term (current) drug therapy; Z79.82 Long term (current) use of aspirin; Z90.710 Acquired absence of both cervix and uterus
CPT/HCPCS: 36415; 71045; 74176; 80048; 80053; 80061; 82274; 82553; 83690; 83735; 83880; 84100; 84443; 84484; 85025; 90935; 93005; 93306; 93798; 93970; 96374; 96375; G0257; J1650; J2270; J2405; U0002; U0005

== ENCOUNTER 2021-01-13 15:14 | Inpatient (IN) | payer MEDICARE, MEDICAID ==
[2021-01-13 16:00] LABS: #Basophils 0.1 thou/uL (0.0-0.2); #Eosinphils 0.4 thou/uL (0.0-0.7); #Lymphocytes 3.3 thou/uL (1.20-3.40); #Monocytes 0.7 thou/uL (0.11-0.59); #Neutrophils 3.9 thou/uL (1.40-6.50); %Eosinophils 4.3 % (0.0-10.0); %Lymphocytes 39.8 % (21.0-51.0); %Monocytes 8.3 % (0.0-10.0); %Neutrophils 46.6 % (42.0-75.0); Hemoglobin 11.5 g/dL (12.0-16.0); Mean Corpuscular HGB CONC 31.4 g/dL (32.0-36.0); Mean Corpuscular Hemoglobin 30.9 pg (27.0-31.0); Mean Corpuscular Volume 98.3 fL (78.0-98.0); Mean Platelet Volume 10.3 fL (7.4-10.4); Platelet Count 144 thou/uL (130-400); RBC Distribution Width 13.4 % (11.5-14.5); Red Blood Cell (RBC) Count 3.71 mill/uL (4.20-5.40); White Blood Cell (WBC) Count 8.4 thou/uL (4.8-10.8)
[2021-01-13 16:29] LABS: ALT (SGPT) 21 U/L (8-55); AST (SGOT) 32 U/L (5-34); Alkaline Phosphatase 90 U/L (40-110); Anion Gap 17 mmol/L (10-20); BUN (Urea Nitrogen) 26 mg/dL (9.8-20.1); Bilirubin, Total 0.3 mg/dL (0.2-1.2); CK (CPK) 42 U/L (29-168); Calc. Creatinine Clearance 0 mL/min (70-130); Calcium 9.6 mg/dL (7.8-10.44); Carbon Dioxide 26 mmol/L (23-31); Chloride 97 mmol/L (98-107); Globulin 3.5 g/dL (2.4-3.5); Glucose 109 mg/dL (83-110); Potassium 5.1 mmol/L (3.5-5.1); Protein, Total 7.5 g/dL (5.8-8.1); Sodium 135 mmol/L (136-145)
[2021-01-13 16:44] LABS: CKMB 0.9 ng/mL (0-6.6)
[2021-01-13] MEDS ORDERED: Ondansetron PF 4 MG/2 ML Vial IVP PRN (18:48)
[2021-01-13] MEDS ORDERED: Nitroglycerin 0.4 MG TAB (25 Tab Bottle) SL PRN (18:49)
[2021-01-13] MEDS ORDERED: Dextrose 5% in Water 1,000 ML IV PRN (18:51)
[2021-01-13] MEDS ORDERED: Dextrose 50% Abboject 50 ML SYRINGE SLOW IVP PRN (18:51)
[2021-01-13 20:36] LABS: Troponin I 0.023 ng/mL (< 0.028)
[2021-01-13 23:19] VITALS: BMI 27.5
[2021-01-13] MEDS: Heparin 5,000 UNITS/ML VIAL SC SCH (23:54)
[2021-01-13] MEDS: Pregabalin 50 MG CAP PO SCH (23:56)
[2021-01-13] MEDS: clonazePAM 0.5 MG TAB PO SCH (23:56)
[2021-01-13] MEDS: Acetaminophen 325 MG TAB PO PRN (23:59)
[2021-01-14 00:55] LABS: Troponin I 0.027 ng/mL (< 0.028)
[2021-01-14 05:25] LABS: #Eosinphils 0.5 thou/uL (0.0-0.7); #Lymphocytes 3.7 thou/uL (1.20-3.40); #Monocytes 0.8 thou/uL (0.11-0.59); #Neutrophils 2.7 thou/uL (1.40-6.50); %Basophils 0.5 % (0.0-1.0); %Lymphocytes 47.7 % (21.0-51.0); %Monocytes 10.2 % (0.0-10.0); %Neutrophils 34.6 % (42.0-75.0); Hemoglobin 10.8 g/dL (12.0-16.0); Mean Corpuscular HGB CONC 32.5 g/dL (32.0-36.0); Mean Corpuscular Hemoglobin 31.5 pg (27.0-31.0); Mean Corpuscular Volume 97.1 fL (78.0-98.0); Mean Platelet Volume 10.2 fL (7.4-10.4); Platelet Count 130 thou/uL (130-400); RBC Distribution Width 13.3 % (11.5-14.5); Red Blood Cell (RBC) Count 3.44 mill/uL (4.20-5.40); White Blood Cell (WBC) Count 7.8 thou/uL (4.8-10.8)
[2021-01-14] MEDS: Albuterol Sulfate 1.25 MG/3 ML NEB INH SCH ×2 (06:42→19:18)
[2021-01-14 07:33] LABS: Anion Gap 15 mmol/L (10-20); BUN (Urea Nitrogen) 16 mg/dL (9.8-20.1); Calc. Creatinine Clearance 10 mL/min (70-130); Calcium 9.5 mg/dL (7.8-10.44); Carbon Dioxide 29 mmol/L (23-31); Chloride 100 mmol/L (98-107); Potassium 3.9 mmol/L (3.5-5.1); Sodium 140 mmol/L (136-145)
[2021-01-14 07:40] LABS: Glucose 47 mg/dL (83-110)
[2021-01-14] MEDS ORDERED: BUPROPION HCL 300 MG PO SCH (09:00)
[2021-01-14 09:16] LABS: Hemoglobin A1c 4.6 % (4.0-6.0)
[2021-01-14] MEDS: Heparin 5,000 UNITS/ML VIAL SC SCH ×3 (09:37→20:54)
[2021-01-14] MEDS: Bupropion 150 MG XL TAB PO SCH (09:38)
[2021-01-14] MEDS: Aripiprazole 2 MG TAB PO SCH (09:38)
[2021-01-14] MEDS: Carvedilol 3.125 MG TAB PO SCH ×2 (09:39→18:12)
[2021-01-14] MEDS: Lisinopril 2.5 MG TAB PO SCH (09:39)
[2021-01-14] MEDS: clonazePAM 0.5 MG TAB PO SCH ×2 (09:39→21:00)
[2021-01-14] MEDS: Aspirin 81 mg Enteric Coated Tablet PO SCH (09:40)
[2021-01-14] MEDS: FLUoxetine HCl 20 MG CAP PO SCH (09:40)
[2021-01-14 11:00] LABS: SARS-CoV-2 PCR by NAA Not Detected (NotDetected)
[2021-01-14] MEDS: Mometasone 200 MCG/Formoterol 5 MCG 120 PUFF INHALER INH SCH (19:15)
[2021-01-14] MEDS: Pregabalin 50 MG CAP PO SCH (21:00)
[2021-01-14] MEDS: Acetaminophen 325 MG TAB PO PRN (21:01)
[2021-01-15] MEDS: Albuterol Sulfate 1.25 MG/3 ML NEB INH SCH ×2 (07:34→18:59)
[2021-01-15] MEDS: Mometasone 200 MCG/Formoterol 5 MCG 120 PUFF INHALER INH SCH ×2 (07:35→19:01)
[2021-01-15] MEDS: Heparin 5,000 UNITS/ML VIAL SC SCH ×3 (08:27→20:39)
[2021-01-15] MEDS: Aripiprazole 2 MG TAB PO SCH (08:29)
[2021-01-15] MEDS: FLUoxetine HCl 20 MG CAP PO SCH (08:30)
[2021-01-15] MEDS: Aspirin 81 mg Enteric Coated Tablet PO SCH (08:30)
[2021-01-15] MEDS: Lisinopril 2.5 MG TAB PO SCH (08:30)
[2021-01-15] MEDS: Bupropion 150 MG XL TAB PO SCH (08:30)
[2021-01-15] MEDS: Carvedilol 3.125 MG TAB PO SCH ×2 (08:30→17:11)
[2021-01-15] MEDS: clonazePAM 0.5 MG TAB PO SCH ×2 (08:30→20:40)
[2021-01-15] MEDS ORDERED: Albumin 25% 25 GM/100 ML BOT IVPB SCH (12:06)
[2021-01-15] MEDS: Pregabalin 50 MG CAP PO SCH (20:40)
[2021-01-15] MEDS: Acetaminophen 325 MG TAB PO PRN (20:53)
[2021-01-16] MEDS: Mometasone 200 MCG/Formoterol 5 MCG 120 PUFF INHALER INH SCH (06:58)
[2021-01-16] MEDS: Albuterol Sulfate 1.25 MG/3 ML NEB INH SCH (06:59)
[2021-01-16] MEDS: Carvedilol 3.125 MG TAB PO SCH ×2 (11:19→16:56)
[2021-01-16] MEDS: Aripiprazole 2 MG TAB PO SCH (11:19)
[2021-01-16] MEDS: clonazePAM 0.5 MG TAB PO SCH (11:19)
[2021-01-16] MEDS: FLUoxetine HCl 20 MG CAP PO SCH (11:19)
[2021-01-16] MEDS: Lisinopril 2.5 MG TAB PO SCH (11:19)
[2021-01-16] MEDS: Bupropion 150 MG XL TAB PO SCH (11:20)
[2021-01-16] MEDS: Aspirin 81 mg Enteric Coated Tablet PO SCH (11:20)
[2021-01-16] MEDS: Heparin 5,000 UNITS/ML VIAL SC SCH ×2 (11:20→14:43)
[2021-01-16 16:00] VITALS: BP 121/67; TEMP 98
== END 2021-01-16 17:40 | disposition home or self-care (01) | DRG 291 ==
LOC: ERS 15:14 → ERHOLD 17:21 → 2SW 20:32 → OBSVTOIN 01-15 16:06
PROVIDERS: ADMIT Internal Medicine; ATTEND Internal Medicine
PROC: 5A1D70Z Performance of Urinary Filtration, Intermittent, Less than 6 Hours Per Day (ICD-10-PCS; principal; 2021-01-16)
DX: I13.2 Hypertensive heart and chronic kidney disease with heart failure and with stage 5 chronic kidney disease, or end stage renal disease (principal); N18.6 End stage renal disease; I50.43 Acute on chronic combined systolic (congestive) and diastolic (congestive) heart failure; I24.8 Other forms of acute ischemic heart disease; E11.22 Type 2 diabetes mellitus with diabetic chronic kidney disease; D63.1 Anemia in chronic kidney disease; I42.9 Cardiomyopathy, unspecified; J45.20 Mild intermittent asthma, uncomplicated; G47.30 Sleep apnea, unspecified; I25.10 Atherosclerotic heart disease of native coronary artery without angina pectoris; K21.9 Gastro-esophageal reflux disease without esophagitis; F31.9 Bipolar disorder, unspecified; Z20.822 Contact with and (suspected) exposure to COVID-19; Z88.0 Allergy status to penicillin; Z79.82 Long term (current) use of aspirin; Z79.899 Other long term (current) drug therapy; Z99.2 Dependence on renal dialysis; Z90.711 Acquired absence of uterus with remaining cervical stump; Z98.890 Other specified postprocedural states
CPT/HCPCS: 36415; 36416; 71045; 80048; 80053; 82550; 82553; 83036; 83880; 84484; 85025; 90935; 93005; 94640; G0257; J1644; P9047; U0003; U0005

== ENCOUNTER 2021-04-06 05:15 | Emergency (ER) | payer MEDICARE, MEDICAID ==
[2021-04-06 07:39] LABS: #Eosinphils 0.1 thou/uL (0.0-0.7); #Monocytes 0.6 thou/uL (0.11-0.59); #Neutrophils 12.9 thou/uL (1.40-6.50); %Basophils 0.1 % (0.0-1.0); %Eosinophils 0.4 % (0.0-10.0); %Neutrophils 88.5 % (42.0-75.0); Hemoglobin 11.5 g/dL (12.0-16.0); Mean Corpuscular HGB CONC 32.5 g/dL (32.0-36.0); Mean Corpuscular Hemoglobin 32.2 pg (27.0-31.0); Mean Corpuscular Volume 99.3 fL (78.0-98.0); Mean Platelet Volume 10.1 fL (7.4-10.4); Platelet Count 174 thou/uL (130-400); Red Blood Cell (RBC) Count 3.58 mill/uL (4.20-5.40); White Blood Cell (WBC) Count 14.6 thou/uL (4.8-10.8)
[2021-04-06 08:00] LABS: ALT (SGPT) 25 U/L (8-55); AST (SGOT) 31 U/L (5-34); Albumin 4.1 g/dL (3.4-4.8); Alkaline Phosphatase 68 U/L (40-110); Anion Gap 26 mmol/L (10-20); BUN (Urea Nitrogen) 82 mg/dL (9.8-20.1); Bilirubin, Total 0.8 mg/dL (0.2-1.2); Calc. Creatinine Clearance 0 mL/min (70-130); Calcium 9.6 mg/dL (7.8-10.44); Carbon Dioxide 18 mmol/L (23-31); Chloride 98 mmol/L (98-107); Globulin 2.6 g/dL (2.4-3.5); Glucose 158 mg/dL (83-110); Protein, Total 6.7 g/dL (5.8-8.1); Sodium 134 mmol/L (136-145)
[2021-04-06 08:04] LABS: Potassium 7.6 mmol/L (3.5-5.1)
[2021-04-06 08:21] LABS: CKMB 2.2 ng/mL (0-6.6)
== END 2021-04-06 14:35 | disposition home or self-care (01) ==
LOC: ERS 05:15
DX: I12.0 Hypertensive chronic kidney disease with stage 5 chronic kidney disease or end stage renal disease (principal); E11.22 Type 2 diabetes mellitus with diabetic chronic kidney disease; N18.6 End stage renal disease; R06.00 Dyspnea, unspecified; E87.70 Fluid overload, unspecified; Z79.899 Other long term (current) drug therapy
CPT/HCPCS: 71045; 80053; 82553; 83880; 84484; 85025; 90935; 93005; G0257; J7620